=== PATIENT | male | born 1955 | race Caucasian/White ===

== ENCOUNTER → 2019-03-11 | Outpatient (CLI) | payer MEDICARE, OTHER ==
[~2019-03-11] MED LIST: CLON-378 PO; MECL-124 PO; ONDAN4ODT PO; SCOP1PAT TD
--- NOTE | 2019-03-11 11:59 | Diagnostic Imaging Report ---
INDICATION: Pain. Three views were obtained. FINDINGS: There are mild degenerative changes. There is no fracture or dislocation. Soft tissues are unremarkable. IMPRESSION: Mild degenerative narrowing in the medial knee joint compartment and patellofemoral joint. Dictated by: Dictated on workstation # [id number]
== END ==
LOC: RAD 11:17
PROVIDERS: ATTEND Family Medicine
DX: M17.11 Unilateral primary osteoarthritis, right knee (principal)
CPT/HCPCS: 73562

== ENCOUNTER 2019-09-14 07:42 | Emergency (ER) | payer MEDICARE, OTHER ==
[~2019-09-14] VITALS: Ht 172.2 cm; Wt 109.0 kg
[2019-09-14 07:46] VITALS: BP 141/88
[2019-09-14] MEDS ORDERED: KETOROLAC 30 MG/ML VIAL IVP STA (08:02)
[2019-09-14] MEDS ORDERED: COLCHICINE 0.6 MG (COLCRYS) TABLET PO ONE ×2 (08:15→09:00)
[2019-09-14 08:18] LABS: BASOPHILS % (AUTO) 0 % (0-10); EOSINOPHILS # (AUTO) 0.1 10^3/uL (0.0-0.3); EOSINOPHILS % (AUTO) 1 % (0-10); HEMATOCRIT 39 % (40-54); HEMOGLOBIN 12.8 G/DL (13.3-17.7); LYMPHOCYTES # (AUTO) 1.4 X 10^3 (1.0-4.0); LYMPHOCYTES % (AUTO) 12 % (12-44); MEAN CORPUSCULAR HEMOGLOBIN 27 PG (25-34); MEAN CORPUSCULAR HGB CONC 33 G/DL (32-36); MEAN CORPUSCULAR VOLUME 81 FL (80-99); MEAN PLATELET VOLUME 10.8 FL (7.4-10.4); MONOCYTES # (AUTO) 1.4 X 10^3 (0.0-1.0); MONOCYTES % (AUTO) 11 % (0-12); NEUTROPHILS # (AUTO) 9.4 X 10^3 (1.8-7.8); NEUTROPHILS % (AUTO) 76 % (42-75); PLATELET COUNT 324 10^3/uL (130-400); RED CELL DISTRIBUTION WIDTH 14.8 % (10.0-14.5); WHITE BLOOD COUNT 12.3 10^3/uL (4.3-11.0)
[2019-09-14 08:38] LABS: ALANINE AMINOTRANSFERASE 12 U/L (0-55); ALBUMIN 3.9 GM/DL (3.2-4.5); ALKALINE PHOSPHATASE 65 U/L (40-136); BILIRUBIN,TOTAL 0.8 MG/DL (0.1-1.0); BUN/CREATININE RATIO 11; CALCIUM 9.3 MG/DL (8.5-10.1); CARBON DIOXIDE 26 MMOL/L (21-32); CHLORIDE 99 MMOL/L (98-107); CREATININE SERUM 1.04 MG/DL (0.60-1.30); GFR ESTIMATED > 60; GLUCOSE 167 MG/DL (70-105); SODIUM 139 MMOL/L (135-145); TOTAL PROTEIN 7.5 GM/DL (6.4-8.2)
--- NOTE | 2019-09-14 09:34 | ED Lower Extremity ---
General Chief Complaint: Lower Extremity Stated Complaint: SWELLING IN FEET Nursing Triage Note: TO ED PER W/C C/O PAIN AND SWELLING IN BOTH FEET HAS PMH OF GOUT. SL SWELLING. Nursing Sepsis Screen: No Definite Risk Source: patient Exam Limitations: no limitations History of Present Illness Date Seen by Provider: Sep 14, 2019 Time Seen by Provider: 08:02 Initial Comments Here with report of bilateral feet pain that states is similar to when he has gout. Typically he would use colchicine but he is out of the prescription for that. Also noted some intermittent sore throat and runny nose with mild cough. This is usually worse in the morning. States that he's had some chills recently. Denies any other injuries or concerns. Recently started allopurinol and is wondering if that caused his gout flare. Onset: yesterday Severity: moderate Pain/Injury Location: bilateral foot, bilateral ankle Method of Injury: unknown Modifying Factors: Improves With Immobilization; Worse With Movement Allergies and Home Medications Allergies Coded Allergies: No Known Drug Allergies (Unverified , 08/28/13) Home Medications Clonidine Hcl 0.2 Mg Tab, 1 EACH PO BID FOR BLOOD PRESSURE Prescribed by: TIM DE LA CRUZ on 08/28/131914 Meclizine Hcl 25 Mg Tab, 1-2 TAB PO Q 4-6 HOURS PRN FOR DIZZINESS Prescribed by: TIM DE LA CRUZ on 08/28/131914 Ondansetron Hcl 4 Mg Tab, 4 MG PO Q4H FOR NAUSEA AND VOMITING Prescribed by: TIM DE LA CRUZ on 08/28/131914 Scopolamine Hcl 1 Patch .72 H Patch.td72, 1 EA TD Q3D FOR DIZZINESS Prescribed by: TIM DE LA CRUZ on 08/28/131914 Patient Home Medication List Home Medication List Reviewed: Yes Review of Systems Constitutional: see HPI EENTM: see HPI Respiratory: cough; No short of breath Cardiovascular: no symptoms reported Gastrointestinal: no symptoms reported Musculoskeletal: see HPI, joint pain, joint swelling Skin: change in color; No lesions Past Ylhfdaz-Satviw-Eiqngd Hx Past Med/Social Hx: Reviewed Nursing Past Med/Soc Hx Patient Social History Alcohol Use: Occasionally Uses Alcohol Beverage of Choice: [place] Recreational Drug Use: No Smoking Status: Never a Smoker Recent Foreign Travel: No Contact w/Someone Who Travel: No Recent Infectious Disease Expo: No Past Medical History Surgeries: No Respiratory: No Cardiac: Yes Neurological: No Reproductive Disorders: No Gastrointestinal: No Musculoskeletal: Yes Gout Endocrine: No Cancer: No Psychosocial: No Integumentary: No Blood Disorders: No Family Medical History Reviewed Nursing Family Hx No Pertinent Family Hx Physical Exam Vital Signs Vital Signs - First Documented 09/14/19 07:46 Temp 37.2 Pulse 113 Resp 18 B/P (MAP) 141/88 (105) Capillary Refill : Less Than 3 Seconds Height, Weight, BMI Height: '" Weight: 190lbs. oz. 86.069375ih; 36.00 BMI Method:Estimated General Appearance: WD/WN, no apparent distress Cardiovascular: regular rate, rhythm, no murmur Respiratory: lungs clear, normal breath sounds Gastrointestinal: non tender, soft Ankles: bilateral ankle pain, bilateral ankle soft tissue tenderness, bilateral ankle swelling Feet: bilateral foot pain, bilateral foot soft tissue tenderness, bilateral foot swelling, bilateral foot other (left greater than right with erythema and swelling. Mostly about the mid and upper foot and ankles.) Neurologic/Tendon: normal sensation, normal motor functions Neurologic/Psychiatric: alert, oriented x 3 Skin: warm/dry, other (erythema as described above) Progress/Results/Core Measures Results/Orders Lab Results Laboratory Tests Test 09/14/19 08:05 Range/Units White Blood Count 12.3 H 4.3-11.0 10^3/uL Red Blood Count 4.80 4.35-5.85 10^6/uL Hemoglobin 12.8 L 13.3-17.7 G/DL Hematocrit 39 L 40-54 % Mean Corpuscular Volume 81 80-99 FL Mean Corpuscular Hemoglobin 27 25-34 PG Mean Corpuscular Hemoglobin Concent 33 32-36 G/DL Red Cell Distribution Width 14.8 H 10.0-14.5 % Platelet Count 324 130-400 10^3/uL Mean Platelet Volume 10.8 H 7.4-10.4 FL Neutrophils (%) (Auto) 76 H 42-75 % Lymphocytes (%) (Auto) 12 12-44 % Monocytes (%) (Auto) 11 0-12 % Eosinophils (%) (Auto) 1 0-10 % Basophils (%) (Auto) 0 0-10 % Neutrophils # (Auto) 9.4 H 1.8-7.8 X 10^3 Lymphocytes # (Auto) 1.4 1.0-4.0 X 10^3 Monocytes # (Auto) 1.4 H 0.0-1.0 X 10^3 Eosinophils # (Auto) 0.1 0.0-0.3 10^3/uL Basophils # (Auto) 0.0 0.0-0.1 10^3/uL Sodium Level 139 135-145 MMOL/L Potassium Level 3.0 L 3.6-5.0 MMOL/L Chloride Level 99 98-107 MMOL/L Carbon Dioxide Level 26 21-32 MMOL/L Anion Gap 14 5-14 MMOL/L Blood Urea Nitrogen 11 7-18 MG/DL Creatinine 1.04 0.60-1.30 MG/DL Estimat Glomerular Filtration Rate > 60 BUN/Creatinine Ratio 11 Glucose Level 167 H 70-105 MG/DL Calcium Level 9.3 8.5-10.1 MG/DL Corrected Calcium 9.4 8.5-10.1 MG/DL Total Bilirubin 0.8 0.1-1.0 MG/DL Aspartate Amino Transf (AST/SGOT) 12 5-34 U/L Alanine Aminotransferase (ALT/SGPT) 12 0-55 U/L Alkaline Phosphatase 65 40-136 U/L C-Reactive Protein High Sensitivity 19.45 H 0.00-0.50 MG/DL Total Protein 7.5 6.4-8.2 GM/DL Albumin 3.9 3.2-4.5 GM/DL My Orders Orders - CHARLIE CANO MD Cbc With Automated Diff (09/14/19 08:02) Comprehensive Metabolic Panel (09/14/19 08:02) Hs C Reactive Protein (09/14/19 08:02) Ed Iv/Invasive Line Start (09/14/19 08:02) Ketorolac Injection (Toradol Injection) (09/14/19 08:02) Colchicine Tablet (Colcrys Tablet) (09/14/19 08:15) Colchicine Tablet (Colcrys Tablet) (09/14/19 09:00) Medications Given in ED Current Medications Medications Dose Ordered Sig/[place] Route Start Time Stop Time Status Last Admin Dose Admin Colchicine 0.6 mg ONCE ONCE PO 09/14/19 09:00 09/14/19 09:01 DC 09/14/19 09:23 0.6 MG Colchicine 1.2 mg ONCE ONCE PO 09/14/19 08:15 09/14/19 08:16 DC 09/14/19 08:22 1.2 MG Vital Signs/I&O 09/14/19 07:46 Temp 37.2 Pulse 113 Resp 18 B/P (MAP) 141/88 (105) Blood Pressure Mean: 105 Progress Progress Note : Progress Note Seen and evaluated. Physical exam consistent with gout flare. Colchicine 1.2 mg by mouth now with repeat of 0.6 mg by mouth and one hour. We'll also give Toradol 30 mg IV. We will check basic labs. There is some concerns that this could be infectious versus gout. Monitor patient. 914: Pain is actually much improved. Laboratory data does indicate inflammatory process which I do believe currently is related to gout but I did talk at length with the patient and family about management of this. We will see if he improves with gout treatment but if he has any worsening he will return for further workup including concerns related to a septic joint. Patient and family agree. Discharged home with return precautions. Patient verbalize understanding instructions and agreement with plan. Departure Impression Primary Impression: Gout of both feet Disposition: HOME, SELF-CARE Condition: Improved Departure-Patient Inst. Decision time for Depature: 09:34 Referrals: LEODAN HILL MD (PCP/Family) Primary Care Physician Patient Instructions: Gout (DC) Add. Discharge Instructions: All discharge instructions reviewed with patient and/or family. Voiced understanding. You may take Aleve one or 2 tablets twice daily as needed for pain. You may also take Tylenol/acetaminophen 1000 mg (2 tablets of extra strength version) every 6-8 hours as needed for pain. Do not exceed 4000 mg or 8 tablets in a 24-hour period. Drink plenty of fluids. Follow-up with your doctor on Monday or Monday for recheck. Return for worse pain, increased swelling, fever, red streaks up the foot or leg or other concerns as needed. Copy Copies To 1: LEODAN HILL MD, TIMOTHY D MD Sep 14, 2019 09:34
== END 2019-09-14 09:41 | disposition home or self-care (01) ==
LOC: EDUNIT# 07:42 → ER 07:43
DX: M10.071 Idiopathic gout, right ankle and foot (principal); M10.072 Idiopathic gout, left ankle and foot
CPT/HCPCS: 36415; 80053; 85025; 86141; 96374

== ENCOUNTER 2019-09-29 20:33 | Emergency (ER) | payer MEDICARE, OTHER ==
[~2019-09-29] VITALS: Ht 177 cm; Wt 113.0 kg
[2019-09-29] MEDS ORDERED: LIDOCAINE 1% INJ 20 ML 20 ML VIAL INJ ONE (20:45)
[2019-09-29] MEDS ORDERED: HYDROcodone/APAP 5 MG/325 MG (LORTAB) TAB PO ONE (21:15)
[2019-09-29] MEDS ORDERED: PRD20T PO (21:16)
--- NOTE | 2019-09-29 21:16 | ED Lower Extremity ---
General Chief Complaint: Lower Extremity Stated Complaint: ANKLE SWELLING Nursing Triage Note: THE PT IS AMBULATORY TO THE ROOM WITH PAIN NOTED WITH W/T BEAR. NO HX OF RECENT INJURY IS REPORTED. LOC IS NORMAL FOR THE PT. Nursing Sepsis Screen: No Definite Risk Source: patient Exam Limitations: no limitations History of Present Illness Date Seen by Provider: Sep 29, 2019 Time Seen by Provider: 21:11 Initial Comments To ER with reports of right ankle pain and swelling. Was seen here last week for gout, history of gout. He's been on colchicine, allopurinol, denies improvement Onset: just prior to arrival Severity: moderate Pain/Injury Location: right ankle Method of Injury: unknown Modifying Factors: Worse With Movement Allergies and Home Medications Allergies Coded Allergies: No Known Drug Allergies (Unverified , 08/28/13) Home Medications Clonidine Hcl 0.2 Mg Tab, 1 EACH PO BID FOR BLOOD PRESSURE Prescribed by: TIM DE LA CRUZ on 08/28/131914 Meclizine Hcl 25 Mg Tab, 1-2 TAB PO Q 4-6 HOURS PRN FOR DIZZINESS Prescribed by: TIM DE LA CRUZ on 08/28/131914 Ondansetron Hcl 4 Mg Tab, 4 MG PO Q4H FOR NAUSEA AND VOMITING Prescribed by: TIM DE LA CRUZ on 08/28/131914 Scopolamine Hcl 1 Patch .72 H Patch.td72, 1 EA TD Q3D FOR DIZZINESS Prescribed by: TIM DE LA CRUZ on 08/28/131914 Patient Home Medication List Home Medication List Reviewed: Yes Review of Systems Constitutional: see HPI; No chills, No fever EENTM: see HPI Respiratory: no symptoms reported Cardiovascular: no symptoms reported Genitourinary: no symptoms reported Musculoskeletal: no symptoms reported Skin: see HPI Past Cibtjbe-Jfensu-Ykcada Hx Patient Social History Alcohol Beverage of Choice: [place] Recent Foreign Travel: No Contact w/Someone Who Travel: No Recent Infectious Disease Expo: No Recent Hopitalizations: No Physical Abuse: No Sexual Abuse: No Mistreated: No Fear: No Seasonal Allergies Seasonal Allergies: No Past Medical History Surgeries: No Respiratory: No Cardiac: Yes Neurological: No Reproductive Disorders: No Gastrointestinal: No Musculoskeletal: Yes Gout Endocrine: No Cancer: No Psychosocial: No Integumentary: No Blood Disorders: No Family Medical History No Pertinent Family Hx Physical Exam Vital Signs Vital Signs - First Documented 09/29/19 20:44 Temp 36.6 Pulse 100 Resp 18 B/P (MAP) 123/94 (104) Capillary Refill : Less Than 3 Seconds Height, Weight, BMI Height: '" Weight: 190lbs. oz. 86.973694op; 36.00 BMI Method:Estimated General Appearance: WD/WN, no apparent distress Respiratory: no respiratory distress, no accessory muscle use Hips: bilateral hip non-tender, bilateral hip normal inspection, bilateral hip normal range of motion Legs: bilateral leg non-tender, bilateral leg normal inspection, bilateral leg normal range of motion Knees: bilateral knee non-tender, bilateral knee normal inspection, bilateral knee normal range of motion Ankles: bilateral ankle normal inspection, bilateral ankle normal range of motion; right ankle other (tender to palpation over the lateral malleolus. No erythema.) Feet: bilateral foot non-tender, bilateral foot normal inspection, bilateral foot normal range of motion, bilateral foot no evidence of injury Neurologic/Psychiatric: alert, normal mood/affect, oriented x 3 Skin: normal color, warm/dry Progress/Results/Core Measures Results/Orders My Orders Orders - GIORGIO AGUILAR APRN Body Fluid Cell Count (09/29/19 20:42) Body Fluid Culture (09/29/19 20:42) Crystals,Body Fluid (09/29/19 20:42) Lidocaine 1% Inj 20 Ml (Xylocaine 1% Inj (09/29/19 20:45) Hydrocodone/Apap 5/325 Tablet (Lortab 5 (09/29/19 21:15) Vital Signs/I&O 09/29/19 20:44 Temp 36.6 Pulse 100 Resp 18 B/P (MAP) 123/94 (104) Blood Pressure Mean: 104 POS Departure Communication (Admissions) Did a ankle arthrocentesis. The medial anterior aspect of the ankle was anesthetized with 1% lidocaine without epinephrine. It was cleansed with Betadin e and allowed to dry. A 22-gauge needle was then inserted until material could be aspirated, serosanguineous material aspirated totaling 2 mL. By the time I made to lab has had clotted. This means that cell count/differential unable to be done, Crystal analysis cannot be done, culture can be done. Impression Primary Impression: Arthropathy of right ankle Disposition: 01 HOME, SELF-CARE Condition: Stable Departure-Patient Inst. Decision time for Depature: :14 Referrals: LEODAN HILL MD (PCP/Family) Primary Care Physician Patient Instructions: NO INSTRUCTIONS GIVEN Add. Discharge Instructions: 1. Return to ER for any concerns 2. Follow-up with your doctor next week 3. All discharge instructions reviewed with patient and/or family. Voiced understanding. Scripts Prednisone (Prednisone) 20 Mg Tab 40 MG PO DAILY, #6 TAB 0 Refills Prov: GIORGIO AGUILAR APRN 09/29/19 GIORGIO AGUILAR APRN Sep 29, 2019 21:16 POS
[2019-09-29 21:27] VITALS: BP 123/94
[2019-09-29] MEDS ORDERED: KETOROLAC 60 MG/2 ML VIAL IM ONE (21:30)
[2019-09-29] MEDS ORDERED: predniSONE 20 MG TAB PO ONE (21:30)
== END 2019-09-29 21:27 | disposition home or self-care (01) ==
LOC: EDUNIT# 20:33 → ER 20:35
DX: M19.071 Primary osteoarthritis, right ankle and foot (principal); M10.9 Gout, unspecified
CPT/HCPCS: 87070; 87205; 96372; 99284

== ENCOUNTER 2019-10-13 17:57 | Emergency (ER) | payer MEDICARE, OTHER ==
[~2019-10-13] VITALS: Ht 175.3 cm; Wt 108.9 kg
[~2019-10-13 17:57] MED LIST changes: +PRD20T PO
--- NOTE | 2019-10-13 18:33 | Diagnostic Imaging Report ---
INDICATION: Chest pain. EXAMINATION: PA and lateral chest. FINDINGS: Heart size and pulmonary vascularity are normal. Lungs are clear. There are no effusions or pneumothoraces. IMPRESSION: Negative chest. Dictated by: Dictated on workstation # [id number]
--- NOTE | 2019-10-13 18:51 | ED General ---
General Chief Complaint: Cough/Cold/Flu Symptoms Stated Complaint: COUGH/CONGESTION Nursing Triage Note: PT AMBULATE TO TRIAGE WITH C/O COUGH/COLD/FLU TYPE SYMPTOMS X1WEEK. PT DENIES DIFFICULTY BREATHING, N/V/D. Nursing Sepsis Screen: No Definite Risk Source of Information: Patient Exam Limitations: No Limitations History of Present Illness Date Seen by Provider: Oct 13, 2019 Time Seen by Provider: 18:46 Initial Comments To ER with reports of sore throat, productive cough for one week. Seemed to get better at first and then recurred. No fevers. Nonsmoker. Timing/Duration: 1-2 Days Severity: Moderate Associated Systoms: Denies Symptoms Allergies and Home Medications Allergies Coded Allergies: No Known Drug Allergies (Unverified , 08/28/13) Home Medications Clonidine Hcl 0.2 Mg Tab, 1 EACH PO BID FOR BLOOD PRESSURE Prescribed by: TIM DE LA CRUZ on 08/28/131914 Meclizine Hcl 25 Mg Tab, 1-2 TAB PO Q 4-6 HOURS PRN FOR DIZZINESS Prescribed by: TIM DE LA CRUZ on 08/28/131914 Ondansetron Hcl 4 Mg Tab, 4 MG PO Q4H FOR NAUSEA AND VOMITING Prescribed by: TIM DE LA CRUZ on 08/28/131914 Prednisone 20 Mg Tab, 40 MG PO DAILY Prescribed by: GIORGIO AGUILAR on 09/29/192115 Scopolamine Hcl 1 Patch .72 H Patch.td72, 1 EA TD Q3D FOR DIZZINESS Prescribed by: TIM DE LA CRUZ on 08/28/131914 Patient Home Medication List Home Medication List Reviewed: Yes Review of Systems Review of Systems Constitutional: see HPI EENTM: see HPI Respiratory: no symptoms reported Cardiovascular: no symptoms reported Genitourinary: no symptoms reported Musculoskeletal: no symptoms reported Skin: no symptoms reported Psychiatric/Neurological: No Symptoms Reported Hematologic/Lymphatic: No Symptoms Reported Past Iqyzayy-Urnset-Vhgnmd Hx Patient Social History Alcohol Use: Denies Use Number of Drinks Today: BB Alcohol Beverage of Choice: [place] Recreational Drug Use: No Smoking Status: Never a Smoker 2nd Hand Smoke Exposure: No Recent Foreign Travel: No Contact w/Someone Who Travel: No Recent Infectious Disease Expo: No Recent Hopitalizations: No Physical Abuse: No Sexual Abuse: No Mistreated: No Fear: No Seasonal Allergies Seasonal Allergies: No Past Medical History Surgeries: No Respiratory: No Cardiac: Yes Hypertension Neurological: Yes (STROKE IN 2013) Stroke Reproductive Disorders: No Gastrointestinal: No Musculoskeletal: Yes Gout Endocrine: No HEENT: No Cancer: No Psychosocial: No Integumentary: No Blood Disorders: No Family Medical History No Pertinent Family Hx Physical Exam Vital Signs Vital Signs - First Documented Capillary Refill : Less Than 3 Seconds Height, Weight, BMI Height: '" Weight: 190lbs. oz. 86.562775ih; 35.00 BMI Method:Estimated General Appearance: No Apparent Distress, WD/WN Eyes: Bilateral Eye Normal Inspection, Bilateral Eye PERRL, Bilateral Eye EOMI HEENT: PERRL/EOMI, TMs Normal Neck: Full Range of Motion, Normal Inspection Respiratory: No Accessory Muscle Use, No Respiratory Distress Cardiovascular: Regular Rate, Rhythm, Normal Peripheral Pulses Gastrointestinal: Non Tender, Soft Extremity: Normal Capillary Refill, Normal Inspection Neurologic/Psychiatric: Alert, Oriented x3 Skin: Normal Color, Warm/Dry Progress/Results/Core Measures Suspected Sepsis Recent Fever Within 48 Hours: No Infection Criteria Present: None New/Unexplained Altered Menta: No Sepsis Screen: No Definite Risk SIRS Temperature: Pulse: 105 Respiratory Rate: 21 Blood Pressure 97 /69 Mean: 78 Results/Orders My Orders Orders - GIORGIO AGUILAR APRN Chest Pa/Lat (2 View) (10/13/19 18:18) Cbc With Automated Diff (10/13/19 18:18) Basic Metabolic Panel (10/13/19 18:18) Vital Signs/I&O 10/13/19 10/13/19 18:08 18:08 Temp 36.7 Pulse 105 Resp 21 B/P (MAP) 97/69 (78) O2 Delivery Room Air Room Air Capillary Refill : Less Than 3 Seconds Blood Pressure Mean: 78 POS Departure Impression Primary Impression: Bronchitis Disposition: 01 HOME, SELF-CARE Condition: Stable Departure-Patient Inst. Decision time for Depature: 18:50 Referrals: LEODAN HILL MD (PCP/Family) Primary Care Physician Patient Instructions: Acute Bronchitis, Adult (DC) Add. Discharge Instructions: 1. Return to ER for any concerns 2. Follow-up with your doctor next week 3. Medication as directed. All discharge instructions reviewed with patient and/or family. Voiced understanding. Scripts Doxycycline Hyclate (Doxycycline Hyclate) 100 Mg Tablet 100 MG PO BID, #14 TAB 0 Refills Prov: GIORGIO AGUILAR APRN 10/13/19 Prednisone (Prednisone) 20 Mg Tab 40 MG PO DAILY, #8 TAB 0 Refills Prov: GIORGIO AGUILAR APRN 10/13/19 GIORGIO AGUILAR APRN Oct 13, 2019 18:51 POS
[2019-10-13 18:52] LABS: BASOPHILS # (AUTO) 0.1 10^3/uL (0.0-0.1); BASOPHILS % (AUTO) 1 % (0-10); EOSINOPHILS # (AUTO) 0.5 10^3/uL (0.0-0.3); EOSINOPHILS % (AUTO) 5 % (0-10); HEMATOCRIT 41 % (40-54); HEMOGLOBIN 13.3 G/DL (13.3-17.7); LYMPHOCYTES # (AUTO) 2.1 X 10^3 (1.0-4.0); LYMPHOCYTES % (AUTO) 21 % (12-44); MEAN CORPUSCULAR HEMOGLOBIN 26 PG (25-34); MEAN CORPUSCULAR HGB CONC 33 G/DL (32-36); MEAN CORPUSCULAR VOLUME 81 FL (80-99); MEAN PLATELET VOLUME 10.6 FL (7.4-10.4); MONOCYTES # (AUTO) 0.7 X 10^3 (0.0-1.0); MONOCYTES % (AUTO) 7 % (0-12); NEUTROPHILS # (AUTO) 6.7 X 10^3 (1.8-7.8); NEUTROPHILS % (AUTO) 67 % (42-75); PLATELET COUNT 258 10^3/uL (130-400); RED CELL DISTRIBUTION WIDTH 15.7 % (10.0-14.5)
[2019-10-13] MEDS ORDERED: DOXY100T2 PO (18:52)
[2019-10-13] MEDS ORDERED: PRD20T PO (18:52)
[2019-10-13 19:08] LABS: BUN/CREATININE RATIO 10; CALCIUM 9.2 MG/DL (8.5-10.1); CARBON DIOXIDE 24 MMOL/L (21-32); CHLORIDE 106 MMOL/L (98-107); CREATININE SERUM 1.15 MG/DL (0.60-1.30); GFR ESTIMATED > 60; GLUCOSE 163 MG/DL (70-105); POTASSIUM 3.6 MMOL/L (3.6-5.0); SODIUM 143 MMOL/L (135-145)
[2019-10-13] MEDS ORDERED: CEFDINIR 300 MG (OMNICEF) CAP PO ONE (19:15)
[2019-10-13] MEDS ORDERED: RX-ACETAMINOPHEN/CODEINE TAB PPK #4 PO SCH (19:15)
[2019-10-13 19:22] VITALS: BP 140/77
== END 2019-10-13 19:22 | disposition home or self-care (01) ==
LOC: EDUNIT# 17:57 → ER 17:58
DX: J40 Bronchitis, not specified as acute or chronic (principal); I10 Essential (primary) hypertension; M10.9 Gout, unspecified; Z86.73 Personal history of transient ischemic attack (TIA), and cerebral infarction without residual deficits
CPT/HCPCS: 36415; 71046; 80048; 85025

== ENCOUNTER 2020-05-23 21:51 | Emergency (ER) | payer MEDICARE, OTHER ==
[~2020-05-23] VITALS: Ht 175.3 cm; Wt 113.4 kg
[~2020-05-23 21:51] MED LIST changes: +DOXY100T2 PO
--- OUTSIDE RECORDS SUMMARY | 2020-05-23 21:56 | XMS REPORT ---
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 Name Role Phone LASHAUN Krause Unavailable PROBLEMS Type Condition ICD9-CM Code HHX25-PH Code Onset Dates Condition S tatus SNOMED Code Problem Hyperlipidemia E78.5 Active 36452 004 Problem COPD (chronic obstructive pulmonary disease) J44.9 Active 61819436 Problem Hypertension I10 Active 0928432 3 Problem Shortness of breath R06.02 Active 955871617 Problem History of CVA (cerebrovascular accident) Z86.73 Active [id number] ALLERGIES No Information ENCOUNTERS Encounter Location Date Diagnosis [place] [address] [place] [id number] [place] [address] May, [facility] [address] [place] [address] May, Acute idiopathic gout, unspe cified site M10.00 and Dehydration E86.0 [facility] [address] [id number] [address] [place] [address] May, Swelling of right knee joint M25.461 and Right ankle swelling M25.471 [facility] [address] [id number] [address] [place] [address] Apr, Ankle swelling, right M25.47 1 [facility] [address] [place] [address] Apr, [facility] [address] [place], [place] [id number] [address] [place] [address] Feb, Establishing care with nikc guzman, encounter for Z71.89 ; COPD (chronic obstructive pulmonary disease) J44.9 ; History of CVA (cerebrovascular accident) Z86.73 ; Hypertension I10 and Hyperlipidemia E78.5 [place] [address] [facility] [id number] [address] [place] [address] Oct, Shortness of breath R06.02 [facility] [address] [facility] [id number] [address] [place] [address] Oct, Hyperlipidemia E78.5 [place] [address] [place] [id number] [place] [address] Oct, Shortness of breath R06.02 [place] [address] [place] [id number] [address] [place] [address] Oct, Other and unspecified hyperl ipidemia 272.4 [place] [address] [place] [id number] [place] [phone] Oct, Hypertension I10 ; Hyperlipi demia E78.5 and Shortness of breath R06.02 [place] [address] [place] [id number] [address] [place] [address] Jul, Other and unspecified hyperl ipidemia 272.4 [place] [address] [place] [id number] [place] [phone] Jul, Essential hypertension, carl gnant 401.0 and Other and unspecified hyperlipidemia 272.4 [place] [address] [place] [id number] [address] [place] [address] May, [place] [address] [place] [id number] [address] [place] [address] May, Essential hypertension, carl gnant 401.0 and Other and unspecified hyperlipidemia 272.4 [place] [address] [place] [id number] [address] [place] [address] Apr, [place] [address] [facility] [id number] [address] [place] [address] Apr, Other and unspecified hyperl ipidemia 272.4 ; Essential hypertension, malignant 401.0 and Shortness of breath 786.05 [facility] [address] [id number] [address] [place] [address], [place] [address] 03 Apr, 2015 [facility] [address] [id number] [address] [place] [address], [place] [address] 14 Feb, 2015 [facility] [address] [id number] [address] [place] [address], [place] [address] 13 Feb, 2015 [facility] [address] [id number] [address] [place] [address], [place] [address] 21 Jan, 2015 [facility] [address] [id number] [address] [place] [address], [place] [address] Jan, [facility] [address] [id number] [address] [place] [address], [place] [address] Jan, [facility] [address] [id number] [address] [place] [address], [place] [address] Jan, [facility] [address] [id number] [address] [place] [address], [place] [address] 18 Jan, 2015 [facility] [address] [id number] [address] [place] [address], [place] [address] Jan, [facility] [address] [id number] [address] [place] [address], [place] [address] Jan, [facility] [address] [id number] [address] [place] [address], [place] [address] Jan, [facility] [address] [id number] [address] [place] [address] 05 Jan, 2015 [facility] [address] [id number] [address] [place] [address], [place] [address] Jan, [facility] [address] [id number] [address] [place] [address], [place] [address] Dec, [facility] [address] [id number] [address] [place] [address] Dec, [facility] [address] [id number] [address] [place] [address] [place] [address] Sep, [facility] [address] [id number] [address] [place] [address], [place] [address] Sep, [facility] [address] [id number] [address] [place] [address], [place] [address] Sep, [facility] [address] [id number] [address] [place] [address], [place] [address] Sep, [facility] [address] [id number] [address] [place] [address], [place] [address] Sep, [facility] [address] [id number] [address] [place] [address], [place] [address] Sep, [facility] [address] [id number] [address] [place] [address], [place] [address] Aug, [facility] [address] [id number] [address] [place] [address], [place] [address] Aug, [facility] [address] [id number] [address] [place] [address], [place] [address] Aug, [facility] [address] [id number] [address] [place] [address], [place] [address] Aug, [facility] [address] [id number] [address] [place] [address], [place] [address] Jul, [facility] [address] [id number] [address] [place] [address], [place] [address] Jul, [facility] [address] [id number] [address] [place] [address], [place] [address] Jun, [facility] [address] [id number] [address] [place] [address], [place] [address] Jun, [facility] [address] [id number] [address] [place] [address], [place] [address] May, [facility] [address] [id number] [address] [place] [address], [place] [address] May, [facility] [address] [id number] [address] [place] [address] May, [facility] [address] [id number] [address] [place] [address], [place] [address] May, [facility] [address] [id number] [address] [place] [address], [place] [address] Apr, [facility] [address] [id number] [address] [place] [address], [place] [address] Apr, [facility] [address] [id number] [address] [place] [address], [place] [address] Apr, [facility] [address] [id number] [address] [place] [address], [place] [address] Apr, [facility] [address] [id number] [address] [place] [address], [place] [address] March, [facility] [address] [id number] [address] [place] [address], [place] [address] March, [facility] [address] [id number] [address] [place] [address], [place] [address] Feb, [facility] [address] [id number] [address] [place] [address], [place] [address] Feb, [facility] [address] [id number] [address] [place] [address], [place] [address] Feb, [facility] [address] [id number] [address] [place] [address], [place] [address] Feb, [facility] [address] [id number] [address] [place] [address], [place] [address] Feb, [facility] [address] [id number] [address] [place] [address], [place] [address] Feb, [facility] [address] [id number] [address] [place] [address], [place] [address] Feb, [facility] [address] [id number] [address] [place] [address], [place] [address] Feb, [facility] [address] [id number] [facility] [place] [address] Jan, [facility] [address] [id number] [facility] [place] [address] Jan, [facility] [address] [id number] [facility] [place] [address] Jan, [facility] [address] [id number] [address] [place] [address], [place] [address] Jan, [facility] [address] [id number] [facility] [place] [address] Jan, [facility] [address] [id number] [address] [place] [address], [place] [address] Jan, [facility] [address] [id number] [address] [place] [address], [place] [address] Jan, [facility] [address] [id number] [address] [place] [address], [place] [address] Jan, [facility] [address] [id number] [address] [place] [address], [place] [address] Jan, [facility] [address] [id number] [address] [place] [address], [place] [address] Jan, [facility] [address] [id number] [address] [place] [address], [place] [address] Jan, [facility] [address] [id number] [address] [place] [address], [place] [address] Jan, [facility] [address] [id number] [address] [place] [address], [place] [address] Jan, [facility] [address] [id number] [address] [place] [address], [place] [address] Jan, [facility] [address] [id number] [address] [place] [address], [place] [address] Dec, [facility] [address] [id number] [address] [place] [address] 13 Dec, 2013 [facility] [address] [id number] [address] [place] [address] Nov, [facility] [address] [id number] [address] [place] [address] Nov, [facility] [address] [id number] [address] [place] [address] Nov, [facility] [address] [id number] [address] [place] [address] Nov, [facility] [address] [id number] [address] [place] [address] Nov, [facility] [address] [id number] [address] [place] [address] Nov, [facility] [address] [id number] [address] [place] [address] Oct, [facility] [address] [id number] [address] [place] [address] Oct, [facility] [address] [id number] [address] [place] [address] Sep, [facility] [address] [id number] [address] [place] [address] 14 Sep, 2013 [facility] [address] [id number] [address] [place] [address] Sep, [facility] [address] [id number] [address] [place] [address] Sep, [facility] [address] [id number] [address] [place] [address] Aug, [facility] [address] [id number] [address] [place] [address] Aug, IMMUNIZATIONS No Known Immunizations SOCIAL HISTORY Never Assessed REASON FOR VISIT PLAN OF CARE VITAL SIGNS MEDICATIONS Unknown Medications RESULTS No Results PROCEDURES No Known procedures INSTRUCTIONS MEDICATIONS ADMINISTERED No Known Medications MEDICAL (GENERAL) HISTORY Type Description Date Medical History Stroke 08/2013 Medical History Hypertension Medical History Hyperlipidemia Medical History whooping cough as a child Medical History rheumatic fever as a child Medical History echocardiogram--10/2015--Dr. Daniel Ibarra--Normal repeat in 5 years Medical History Gout Hospitalization History Stroke Had poor equilibrium Was at [facility] 08/28/2013 Hospitalization History staph infection Hospitalization History Gout 06/05/16
--- OUTSIDE RECORDS SUMMARY | 2020-05-23 21:57 | XMS REPORT ---
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 Name Role Phone LASHAUN Krause Unavailable PROBLEMS Type Condition ICD9-CM Code KEL37-FL Code Onset Dates Condition S tatus SNOMED Code Problem Hyperlipidemia E78.5 Active 74756 004 Problem COPD (chronic obstructive pulmonary disease) J44.9 Active 10718497 Problem Hypertension I10 Active 4326605 3 Problem Shortness of breath R06.02 Active 203197351 Problem History of CVA (cerebrovascular accident) Z86.73 Active [id number] ALLERGIES No Information ENCOUNTERS Encounter Location Date Diagnosis [place] [address] [place] [id number] [address] [place] [phone] May, [facility] [address] [place] [phone] May, Acute idiopathic gout, unspe cified site M10.00 and Dehydration E86.0 [facility] [address] [place] [id number] [address] [place] [phone] May, Swelling of right knee joint M25.461 and Right ankle swelling M25.471 [facility] [address] [place] [id number] [address] [place] [phone] Apr, Ankle swelling, right M25.47 1 [facility] [address] [place] [phone] Apr, [place] [id number] [place] [phone] Feb, Establishing care with nick guzman, encounter for Z71.89 ; COPD (chronic obstructive pulmonary disease) J44.9 ; History of CVA (cerebrovascular accident) Z86.73 ; Hypertension I10 and Hyperlipidemia E78.5 [place] [address] [facility] [id number] [address] [place] [phone] Oct, Shortness of breath R06.02 [facility] [address] [facility] [id number] [address] [place] [phone] Oct, Hyperlipidemia E78.5 [place] [address] [place] [id number] [place] [phone] Oct, Shortness of breath R06.02 [place] [address] [place] [id number] [address] [place] [phone] Oct, Other and unspecified hyperl ipidemia 272.4 [place] [address] [place] [id number] [place] [phone] Oct, Hypertension I10 ; Hyperlipi demia E78.5 and Shortness of breath R06.02 [place] [address] [place] [id number] [address] [place] [phone] Jul, Other and unspecified hyperl ipidemia 272.4 [place] [address] [place] [id number] [place] [phone] Jul, Essential hypertension, carl gnant 401.0 and Other and unspecified hyperlipidemia 272.4 [place] [address] [place] [id number] [address] [place] [phone] May, [place] [address] [place] [id number] [address] [place] [phone] May, Essential hypertension, carl gnant 401.0 and Other and unspecified hyperlipidemia 272.4 [place] [address] [place] [id number] [address] [place] [phone] Apr, [place] [address] [facility] [id number] [address] [place] [phone] Apr, Other and unspecified hyperl ipidemia 272.4 ; Essential hypertension, malignant 401.0 and Shortness of breath 786.05 [facility] [address] [id number] [address] [place] [address], [place] [address] 03 Apr, 2015 [facility] [address] [id number] [address] [place] [address], [place] [address] 14 Feb, 2015 [facility] [address] [id number] [address] [place] [address], [place] [address] 13 Feb, 2015 [facility] [address] [id number] [address] [place] [address], [place] [phone] 21 Jan, 2015 [facility] [address] [id number] [address] [place] [address], [place] [address] Jan, [facility] [address] [id number] [address] [place] [address], [place] [address] Jan, [facility] [address] [id number] [address] [place] [address], [place] [address] Jan, [facility] [address] [id number] [address] [place] [address], [place] [id number] 18 Jan, 2015 [facility] [address] [id number] [address] [place] [address], [place] [address] Jan, [facility] [address] [id number] [address] [place] [address], [place] [address] Jan, [facility] [address] [id number] [address] [place] [address], [place] [address] Jan, [facility] [address] [id number] [address] [place] [phone] 05 Jan, 2015 [facility] [address] [id number] [address] [place] [address], [place] [address] Jan, [facility] [address] [id number] [address] [place] [address], [place] [address] Dec, [facility] [address] [id number] [address] [place] [phone] Dec, [facility] [address] [id number] [address] [place] [address] [place] [phone] Sep, [facility] [address] [id number] [address] [place] [address], [place] [address] Sep, [facility] [address] [id number] [address] [place] [address], [place] [address] Sep, [facility] [address] [id number] [address] [place] [address], [place] [address] Sep, [facility] [address] [id number] [address] [place] [address], [place] [address] Sep, [facility] [address] [id number] [address] [place] [address], [place] [address] Sep, [facility] [address] [id number] [address] [place] [address], [place] [address] Aug, [facility] [address] [id number] [address] [place] [address], [place] [address] Aug, [facility] [address] [id number] [address] [place] [address], [place] [address] Aug, [facility] [address] [id number] [address] [place] [address], [place] [address] Aug, [facility] [address] [id number] [address] [place] [address], [place] [address] Jul, [facility] [address] [id number] [address] [place] [address], [place] [address] Jul, [facility] [address] [id number] [address] [place] [address], [place] [address] Jun, [facility] [address] [id number] [address] [place] [address], [place] [address] Jun, [facility] [address] [id number] [address] [place] [address], [place] [address] May, [facility] [address] [id number] [address] [place] [address], [place] [address] May, [facility] [address] [id number] [facility] [place] [address] May, [facility] [address] [id number] [address] [place] [address], [place] [address] May, [facility] [address] [id number] [address] [place] [address], [place] [address] Apr, [facility] [address] [id number] [address] [place] [address], [place] [address] Apr, [facility] [address] [id number] [address] [place] [address], [place] [address] Apr, [facility] [address] [id number] [address] [place] [address], [place] [address] Apr, [facility] [address] [id number] [address] [place] [address], [place] [address] March, [facility] [address] [id number] [address] [place] [address], [place] [address] March, [facility] [address] [id number] [address] [place] [address], [place] [address] Feb, [facility] [address] [id number] [address] [place] [address], [place] [address] Feb, [facility] [address] [id number] [address] [place] [address], [place] [address] Feb, [facility] [address] [id number] [address] [place] [address], [place] [address] Feb, [facility] [address] [id number] [address] [place] [address], [place] [address] Feb, [facility] [address] [id number] [address] [place] [address], [place] [address] Feb, [facility] [address] [id number] [address] [place] [address], [place] [address] Feb, [facility] [address] [id number] [address] [place] [address], [place] [address] Feb, [facility] [address] [id number] [facility] [place] [address] Jan, [facility] [address] [id number] [facility] [place] [address] Jan, [facility] [address] [id number] [facility] [place] [address] Jan, [facility] [address] [id number] [address] [place] [address], [place] [address] Jan, [facility] [address] [id number] [facility] [place] [address] Jan, [facility] [address] [id number] [address] [place] [address], [place] [address] Jan, [facility] [address] [id number] [address] [place] [address], [place] [address] Jan, [facility] [address] [id number] [address] [place] [address], [place] [address] Jan, [facility] [address] [id number] [address] [place] [address], [place] [address] Jan, [facility] [address] [id number] [address] [place] [address], [place] [address] Jan, [facility] [address] [id number] [address] [place] [address], [place] [address] Jan, [facility] [address] [id number] [address] [place] [address], [place] [address] Jan, [facility] [address] [id number] [address] [place] [address], [place] [address] Jan, [facility] [address] [id number] [address] [place] [address], [place] [address] Jan, [facility] [address] [id number] [address] [place] [address], [place] [address] Dec, [facility] [address] [id number] [address] [place] [phone] 13 Dec, 2013 [facility] [address] [id number] [address] [place] [id number] Nov, [facility] [address] [id number] [address] [place] [phone] Nov, [facility] [address] [id number] [address] [place] [address] Nov, [facility] [address] [id number] [address] [place] [phone] Nov, [facility] [address] [id number] [address] [place] [address] Nov, [facility] [address] [id number] [address] [place] [phone] Nov, [facility] [address] [id number] [address] [place] [phone] Oct, [facility] [address] [id number] [address] [place] [id number] Oct, [facility] [address] [id number] [address] [place] [address] Sep, [facility] [address] [id number] [address] [place] [id number] 14 Sep, 2013 [facility] [address] [id number] [address] [place] [phone] Sep, [facility] [address] [id number] [address] [place] [phone] Sep, [facility] [address] [id number] [address] [place] [id number] Aug, [facility] [address] [id number] [address] [place] [address] Aug, IMMUNIZATIONS No Known Immunizations SOCIAL HISTORY [...] History Stroke Had poor equilibrium Was at [facility] 08/28/2013 Hospitalization History staph infection Hospitalization History Gout 06/05/16
--- OUTSIDE RECORDS SUMMARY | 2020-05-23 21:57 | XMS REPORT ---
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 Role Phone LASHAUN Krause Unavailable PROBLEMS Type Condition ICD9-CM Code GLT48-CD Code Onset Dates Condition S tatus SNOMED Code Problem Hyperlipidemia E78.5 Active 33864 004 Problem COPD (chronic obstructive pulmonary disease) J44.9 Active 83270542 Problem Hypertension I10 Active 9770039 3 Problem Shortness of breath R06.02 Active 819129591 Problem History of CVA (cerebrovascular accident) Z86.73 Active [id number] ALLERGIES No Information ENCOUNTERS Encounter Location Date Diagnosis [place] [id number] [address] [place] [address] May, [facility] [address] [place] [address] May, Acute idiopathic gout, unspe cified site M10.00 and Dehydration E86.0 [facility] [address] [id number] [address] [place] [address] May, Swelling of right knee joint M25.461 and Right ankle swelling M25.471 [facility] [address] [id number] [address] [place] [address] Apr, Ankle swelling, right M25.47 1 [facility] [address] [place] [address] Apr, [place] [id number] [place] [address] Feb, Establishing care with nick guzman, encounter for Z71.89 ; COPD (chronic obstructive pulmonary disease) J44.9 ; History of CVA (cerebrovascular accident) Z86.73 ; Hypertension I10 and Hyperlipidemia E78.5 [place] [address] [facility] [id number] [address] [place] [address] Oct, Shortness of breath R06.02 [facility] [address] [facility] [id number] [address] [place] [address] Oct, Hyperlipidemia E78.5 [place] [address] [place] [id number] [place] [address] Oct, Shortness of breath R06.02 [place] [address] [place] [id number] [address] [place] [address] Oct, Other and unspecified hyperl ipidemia 272.4 [place] [address] [place] [id number] [place] [address] Oct, Hypertension I10 ; Hyperlipi demia E78.5 and Shortness of breath R06.02 [place] [address] [place] [id number] [address] [place] [address] Jul, Other and unspecified hyperl ipidemia 272.4 [place] [address] [place] [id number] [place] [address] Jul, Essential hypertension, carl gnant 401.0 and Other and unspecified hyperlipidemia 272.4 [place] [address] [place] [id number] [address] [place] [address] May, [place] [address] [place] [id number] [address] [place] [address] May, Essential hypertension, carl gnant 401.0 and Other and unspecified hyperlipidemia 272.4 [place] [address] [place] [id number] [address] [place] [address] Apr, [place] [address] [facility] [id number] [address] [place] [address] Apr, Other and unspecified hyperl ipidemia 272.4 ; Essential hypertension, malignant 401.0 and Shortness of breath 786.05 [facility] [address] [id number] [address] [place] [address], [place] [address] 03 Apr, 2015 [facility] [address] [id number] [address] [place] [address], [place] [address] 14 Feb, 2015 [facility] [address] [id number] [address] [place] [address], [place] [address] 13 Feb, 2015 [facility] [address] [id number] [address] [place] [address], [place] [address] 21 Jan, 2015 [facility] [address] [id number] [address] [place] [address], [place] [address] Jan, [facility] [address] [id number] [address] [place] [address], [place] [address] Jan, [facility] [address] [id number] [address] [place] [address], [place] [address] Jan, [facility] [address] [id number] [address] [place] [address], [place] [address] 18 Jan, 2015 [facility] [address] [id number] [address] [place] [address], [place] [address] Jan, [facility] [address] [id number] [address] [place] [address], [place] [address] Jan, [facility] [address] [id number] [address] [place] [address], [place] [address] Jan, [facility] [address] [id number] [address] [place] [address] 05 Jan, 2015 [facility] [address] [id number] [address] [place] [address], [place] [address] Jan, [facility] [address] [id number] [address] [place] [address], [place] [address] Dec, [facility] [address] [id number] [address] [place] [address] Dec, [facility] [address] [id number] [address] [place] [address] [place] [address] Sep, [facility] [address] [id number] [address] [place] [address], [place] [address] Sep, [facility] [address] [id number] [address] [place] [address], [place] [address] Sep, [facility] [address] [id number] [address] [place] [address], [place] [address] Sep, [facility] [address] [id number] [address] [place] [address], [place] [address] Sep, [facility] [address] [id number] [address] [place] [address], [place] [address] Sep, [facility] [address] [id number] [address] [place] [address], [place] [address] Aug, [facility] [address] [id number] [address] [place] [address], [place] [address] Aug, [facility] [address] [id number] [address] [place] [address], [place] [address] Aug, [facility] [address] [id number] [address] [place] [address], [place] [address] Aug, [facility] [address] [id number] [address] [place] [address], [place] [address] Jul, [facility] [address] [id number] [address] [place] [address], [place] [address] Jul, [facility] [address] [id number] [address] [place] [address], [place] [address] Jun, [facility] [address] [id number] [address] [place] [address], [place] [address] Jun, [facility] [address] [id number] [address] [place] [address], [place] [address] May, [facility] [address] [id number] [address] [place] [address], [place] [address] May, [facility] [address] [id number] [facility] [place] [address] May, [facility] [address] [id number] [address] [place] [address], [place] [address] May, [facility] [address] [id number] [address] [place] [address], [place] [address] Apr, [facility] [address] [id number] [address] [place] [address], [place] [address] Apr, [facility] [address] [id number] [address] [place] [address], [place] [address] Apr, [facility] [address] [id number] [address] [place] [address], [place] [address] Apr, [facility] [address] [id number] [address] [place] [address], [place] [address] March, [facility] [address] [id number] [address] [place] [address], [place] [address] March, [facility] [address] [id number] [address] [place] [address], [place] [address] Feb, [facility] [address] [id number] [address] [place] [address], [place] [address] Feb, [facility] [address] [id number] [address] [place] [address], [place] [address] Feb, [facility] [address] [id number] [address] [place] [address], [place] [address] Feb, [facility] [address] [id number] [address] [place] [address], [place] [address] Feb, [facility] [address] [id number] [address] [place] [address], [place] [address] Feb, [facility] [address] [id number] [address] [place] [address], [place] [address] Feb, [facility] [address] [id number] [address] [place] [address], [place] [address] Feb, [facility] [address] [id number] [facility] [place] [address] Jan, [facility] [address] [id number] [facility] [place] [address] Jan, [facility] [address] [id number] [facility] [place] [address] Jan, [facility] [address] [id number] [address] [place] [address], [place] [address] Jan, [facility] [address] [id number] [facility] [place] [address] Jan, [facility] [address] [id number] [address] [place] [address], [place] [address] Jan, [facility] [address] [id number] [address] [place] [address], [place] [address] Jan, [facility] [address] [id number] [address] [place] [address], [place] [address] Jan, [facility] [address] [id number] [address] [place] [address], [place] [address] Jan, [facility] [address] [id number] [address] [place] [address], [place] [address] Jan, [facility] [address] [id number] [address] [place] [address], [place] [address] Jan, [facility] [address] [id number] [address] [place] [address], [place] [address] Jan, [facility] [address] [id number] [address] [place] [address], [place] [address] Jan, [facility] [address] [id number] [address] [place] [address], [place] [address] Jan, [facility] [address] [id number] [address] [place] [address], [place] [address] Dec, [facility] [address] [id number] [address] [place] [address] 13 Dec, 2013 [facility] [address] [id number] [address] [place] [address] Nov, [facility] [address] [id number] [address] [place] [address] Nov, [facility] [address] [id number] [address] [place] [address] Nov, [facility] [address] [id number] [address] [place] [address] Nov, [facility] [address] [id number] [address] [place] [address] Nov, [facility] [address] [id number] [address] [place] [address] Nov, [facility] [address] [id number] [address] [place] [address] Oct, [facility] [address] [id number] [address] [place] [address] Oct, [facility] [address] [id number] [address] [place] [address] Sep, [facility] [address] [id number] [address] [place] [address] 14 Sep, 2013 [facility] [address] [id number] [address] [place] [address] Sep, [facility] [address] [id number] [address] [place] [address] Sep, [facility] [address] [id number] [address] [place] [address] Aug, [facility] [address] [id number] [address] [place] [address] Aug, IMMUNIZATIONS No Known Immunizations SOCIAL HISTORY [...] History Stroke Had poor equilibrium Was at [facility] 08/28/2013 Hospitalization History staph infection Hospitalization History Gout 06/05/16
--- OUTSIDE RECORDS SUMMARY | 2020-05-23 21:57 | XMS REPORT ---
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 Name Role Phone LASHAUN Krause Unavailable PROBLEMS Type Condition ICD9-CM Code XYJ82-LN Code Onset Dates Condition S tatus SNOMED Code Problem Hyperlipidemia E78.5 Active 21927 004 Problem COPD (chronic obstructive pulmonary disease) J44.9 Active 34091366 Problem Hypertension I10 Active 4949088 3 Problem Shortness of breath R06.02 Active 854629791 Problem History of CVA (cerebrovascular accident) Z86.73 Active [id number] ALLERGIES No Information ENCOUNTERS Encounter Location Date Diagnosis [place] [address] [place] [id number] [place] [address] May, [facility] [address] [place] [address] May, Acute idiopathic gout, unspe cified site M10.00 and Dehydration E86.0 [facility] [address] [place] [id number] [address] [place] [address] May, Swelling of right knee joint M25.461 and Right ankle swelling M25.471 [facility] [address] [place] [id number] [address] [place] [address] Apr, Ankle swelling, right M25.47 1 [facility] [address] [place] [phone] Apr, [place] [id number] [place] [address] Feb, Establishing care with nick guzman, encounter for Z71.89 ; COPD (chronic obstructive pulmonary disease) J44.9 ; History of CVA (cerebrovascular accident) Z86.73 ; Hypertension I10 and Hyperlipidemia E78.5 [place] [address] [facility] [id number] [address] [place] [address] Oct, Shortness of breath R06.02 [facility] [address] [facility] [id number] [address] [place] [address] Oct, Hyperlipidemia E78.5 [place] [address] [place] [id number] [place] [address] Oct, Shortness of breath R06.02 [place] [address] [place] [id number] [address] [place] [id number] Oct, Other and unspecified hyperl ipidemia 272.4 [place] [address] [place] [id number] [place] [address] Oct, Hypertension I10 ; Hyperlipi demia E78.5 and Shortness of breath R06.02 [place] [address] [place] [id number] [address] [place] [id number] Jul, Other and unspecified hyperl ipidemia 272.4 [place] [address] [place] [id number] [place] [phone] Jul, Essential hypertension, carl gnant 401.0 and Other and unspecified hyperlipidemia 272.4 [place] [address] [place] [id number] [address] [place] [address] May, [place] [address] [place] [id number] [address] [place] [address] May, Essential hypertension, carl gnant 401.0 and Other and unspecified hyperlipidemia 272.4 [place] [address] [place] [id number] [address] [place] [address] Apr, [place] [address] [facility] [id number] [address] [place] [id number] Apr, Other and unspecified hyperl ipidemia 272.4 ; Essential hypertension, malignant 401.0 and Shortness of breath 786.05 [facility] [address] [id number] [address] [place] [address], [place] [address] 03 Apr, 2015 [facility] [address] [id number] [address] [place] [address], [place] [address] 14 Feb, 2015 [facility] [address] [id number] [address] [place] [address], [place] [address] 13 Feb, 2015 [facility] [address] [id number] [address] [place] [address], [place] [address] 21 Jan, 2015 [facility] [address] [id number] [address] [place] [address], [place] [address] Jan, [facility] [address] [id number] [address] [place] [address], [place] [address] Jan, [facility] [address] [id number] [address] [place] [address], [place] [address] Jan, [facility] [address] [id number] [address] [place] [address], [place] [address] 18 Jan, 2015 [facility] [address] [id number] [address] [place] [address], [place] [address] Jan, [facility] [address] [id number] [address] [place] [address], [place] [address] Jan, [facility] [address] [id number] [address] [place] [address], [place] [address] Jan, [facility] [address] [id number] [address] [place] [id number] 05 Jan, 2015 [facility] [address] [id number] [address] [place] [address], [place] [address] Jan, [facility] [address] [id number] [address] [place] [address], [place] [address] Dec, [facility] [address] [id number] [address] [place] [phone] Dec, [facility] [address] [id number] [address] [place] [address] [place] [address] Sep, [facility] [address] [id number] [address] [place] [address], [place] [address] Sep, [facility] [address] [id number] [address] [place] [address], [place] [address] Sep, [facility] [address] [id number] [address] [place] [address], [place] [address] Sep, [facility] [address] [id number] [address] [place] [address], [place] [address] Sep, [facility] [address] [id number] [address] [place] [address], [place] [address] Sep, [facility] [address] [id number] [address] [place] [address], [place] [address] Aug, [facility] [address] [id number] [address] [place] [address], [place] [address] Aug, [facility] [address] [id number] [address] [place] [address], [place] [address] Aug, [facility] [address] [id number] [address] [place] [address], [place] [address] Aug, [facility] [address] [id number] [address] [place] [address], [place] [address] Jul, [facility] [address] [id number] [address] [place] [address], [place] [address] Jul, [facility] [address] [id number] [address] [place] [address], [place] [address] Jun, [facility] [address] [id number] [address] [place] [address], [place] [address] Jun, [facility] [address] [id number] [address] [place] [address], [place] [address] May, [facility] [address] [id number] [address] [place] [address], [place] [address] May, [facility] [address] [id number] [facility] [place] [address] May, [facility] [address] [id number] [address] [place] [address], [place] [address] May, [facility] [address] [id number] [address] [place] [address], [place] [address] Apr, [facility] [address] [id number] [address] [place] [address], [place] [address] Apr, [facility] [address] [id number] [address] [place] [address], [place] [address] Apr, [facility] [address] [id number] [address] [place] [address], [place] [address] Apr, [facility] [address] [id number] [address] [place] [address], [place] [address] March, [facility] [address] [id number] [address] [place] [address], [place] [address] March, [facility] [address] [id number] [address] [place] [address], [place] [address] Feb, [facility] [address] [id number] [address] [place] [address], [place] [address] Feb, [facility] [address] [id number] [address] [place] [address], [place] [address] Feb, [facility] [address] [id number] [address] [place] [address], [place] [address] Feb, [facility] [address] [id number] [address] [place] [address], [place] [address] Feb, [facility] [address] [id number] [address] [place] [address], [place] [address] Feb, [facility] [address] [id number] [address] [place] [address], [place] [address] Feb, [facility] [address] [id number] [address] [place] [address], [place] [address] Feb, [facility] [address] [id number] [facility] [place] [address] Jan, [facility] [address] [id number] [facility] [place] [address] Jan, [facility] [address] [id number] [facility] [place] [address] Jan, [facility] [address] [id number] [address] [place] [address], [place] [address] Jan, [facility] [address] [id number] [facility] [place] [address] Jan, [facility] [address] [id number] [address] [place] [address], [place] [address] Jan, [facility] [address] [id number] [address] [place] [address], [place] [address] Jan, [facility] [address] [id number] [address] [place] [address], [place] [address] Jan, [facility] [address] [id number] [address] [place] [address], [place] [address] Jan, [facility] [address] [id number] [address] [place] [address], [place] [address] Jan, [facility] [address] [id number] [address] [place] [address], [place] [address] Jan, [facility] [address] [id number] [address] [place] [address], [place] [address] Jan, [facility] [address] [id number] [address] [place] [address], [place] [address] Jan, [facility] [address] [id number] [address] [place] [address], [place] [address] Jan, [facility] [address] [id number] [address] [place] [address], [place] [address] Dec, [facility] [address] [id number] [address] [place] [id number] 13 Dec, 2013 [facility] [address] [id number] [address] [place] [address] Nov, [facility] [address] [id number] [address] [place] [address] Nov, [facility] [address] [id number] [address] [place] [address] Nov, [facility] [address] [id number] [address] [place] [address] Nov, [facility] [address] [id number] [address] [place] [address] Nov, [facility] [address] [id number] [address] [place] [address] Nov, [facility] [address] [id number] [address] [place] [id number] Oct, [facility] [address] [id number] [address] [place] [address] Oct, [facility] [address] [id number] [address] [place] [address] Sep, [facility] [address] [id number] [address] [place] [address] 14 Sep, 2013 [facility] [address] [id number] [address] [place] [address] Sep, [facility] [address] [id number] [address] [place] [address] Sep, [facility] [address] [id number] [address] [place] [address] Aug, [facility] [address] [id number] [address] [place] [id number] Aug, IMMUNIZATIONS No Known Immunizations SOCIAL HISTORY [...] History Stroke Had poor equilibrium Was at [facility] 08/28/2013 Hospitalization History staph infection Hospitalization History Gout 06/05/16
--- OUTSIDE RECORDS SUMMARY | 2020-05-23 21:57 | XMS REPORT ---
Author Author Maurice Krause Organization [facility] Address [address] [place] [address] Care Team Providers Care Information Technology Manager Name Role Phone LASHAUN Krause Unavailable PROBLEMS Type Condition ICD9-CM Code MEL59-UB Code Onset Dates Condition S tatus SNOMED Code Problem Hyperlipidemia E78.5 Active 46513 004 Problem COPD (chronic obstructive pulmonary disease) J44.9 Active 49022586 Problem Hypertension I10 Active 9067341 3 Problem Shortness of breath R06.02 Active 526610670 Problem History of CVA (cerebrovascular accident) Z86.73 Active [id number] ALLERGIES No Information ENCOUNTERS Encounter Location Date Diagnosis [place] [address] [place] [id number] [place] [id number] May, [facility] [address] [place] [id number] May, Acute idiopathic gout, unspe cified site M10.00 and Dehydration E86.0 [facility] [address] [place] [id number] [place] [address] May, Swelling of right knee joint M25.461 and Right ankle swelling M25.471 [facility] [address] [id number] [place] [address] Apr, Ankle swelling, right M25.47 1 [facility] [address] [place] [id number] Apr, [place] [id number] [place] [address] Feb, Establishing care with nick guzman, encounter for Z71.89 ; COPD (chronic obstructive pulmonary disease) J44.9 ; History of CVA (cerebrovascular accident) Z86.73 ; Hypertension I10 and Hyperlipidemia E78.5 [place] [address] [facility] [id number] [address] [place] [address] Oct, Shortness of breath R06.02 [facility] [address] [facility] [id number] [address] [place] [address] Oct, Hyperlipidemia E78.5 [place] [address] [place] [id number] [place] [phone] Oct, Shortness of breath R06.02 [place] [address] [place] [id number] [address] [place] [id number] Oct, Other and unspecified hyperl ipidemia 272.4 [place] [address] [place] [id number] [place] [id number] Oct, Hypertension I10 ; Hyperlipi demia E78.5 and Shortness of breath R06.02 [place] [address] [place] [id number] [address] [place] [id number] Jul, Other and unspecified hyperl ipidemia 272.4 [place] [address] [place] [id number] [place] [phone] Jul, Essential hypertension, carl gnant 401.0 and Other and unspecified hyperlipidemia 272.4 [place] [address] [place] [id number] [address] [place] [id number] May, [place] [address] [place] [id number] [address] [place] [address] May, Essential hypertension, carl gnant 401.0 and Other and unspecified hyperlipidemia 272.4 [place] [address] [place] [id number] [address] [place] [id number] Apr, [place] [address] [facility] [id number] [address] [place] [phone] Apr, Other and unspecified hyperl ipidemia 272.4 ; Essential hypertension, malignant 401.0 and Shortness of breath 786.05 [facility] [address] [id number] [address] [place] [address], [place] [address] 03 Apr, 2015 [facility] [address] [id number] [address] [place] [address], [place] [id number] 14 Feb, 2015 [facility] [address] [id number] [address] [place] [address], [place] [id number] 13 Feb, 2015 [facility] [address] [id number] [address] [place] [address], [place] [id number] 21 Jan, 2015 [facility] [address] [id number] [address] [place] [address], [place] [address] Jan, [facility] [address] [id number] [address] [place] [address], [place] [id number] Jan, [facility] [address] [id number] [address] [place] [address], [place] [id number] Jan, [facility] [address] [id number] [address] [place] [address], [place] [id number] 18 Jan, 2015 [facility] [address] [id number] [address] [place] [address], [place] [address] Jan, [facility] [address] [id number] [address] [place] [address], [place] [address] Jan, [facility] [address] [id number] [address] [place] [address], [place] [address] Jan, [facility] [address] [id number] [address] [place] [id number] 05 Jan, 2015 [facility] [address] [id number] [address] [place] [address], [place] [address] Jan, [facility] [address] [id number] [address] [place] [address], [place] [address] Dec, [facility] [address] [id number] [address] [place] [id number] Dec, [facility] [address] [id number] [address] [place] [address] [place] [address] Sep, [facility] [address] [id number] [address] [place] [address], [place] [address] Sep, [facility] [address] [id number] [address] [place] [address], [place] [address] Sep, [facility] [address] [id number] [address] [place] [address], [place] [address] Sep, [facility] [address] [id number] [address] [place] [address], [place] [address] Sep, [facility] [address] [id number] [address] [place] [address], [place] [address] Sep, [facility] [address] [id number] [address] [place] [address], [place] [address] Aug, [facility] [address] [id number] [address] [place] [address], [place] [address] Aug, [facility] [address] [id number] [address] [place] [address], [place] [address] Aug, [facility] [address] [id number] [address] [place] [address], [place] [address] Aug, [facility] [address] [id number] [address] [place] [address], [place] [address] Jul, [facility] [address] [id number] [address] [place] [address], [place] [address] Jul, [facility] [address] [id number] [address] [place] [address], [place] [address] Jun, [facility] [address] [id number] [address] [place] [address], [place] [address] Jun, [facility] [address] [id number] [address] [place] [address], [place] [address] May, [facility] [address] [id number] [address] [place] [address], [place] [address] May, [facility] [address] [id number] [facility] [place] [address] May, [facility] [address] [id number] [address] [place] [address], [place] [address] May, [facility] [address] [id number] [address] [place] [address], [place] [address] Apr, [facility] [address] [id number] [address] [place] [address], [place] [address] Apr, [facility] [address] [id number] [address] [place] [address], [place] [address] Apr, [facility] [address] [id number] [address] [place] [address], [place] [address] Apr, [facility] [address] [id number] [address] [place] [address], [place] [address] March, [facility] [address] [id number] [address] [place] [address], [place] [address] March, [facility] [address] [id number] [address] [place] [address], [place] [address] Feb, [facility] [address] [id number] [address] [place] [address], [place] [address] Feb, [facility] [address] [id number] [address] [place] [address], [place] [address] Feb, [facility] [address] [id number] [address] [place] [address], [place] [address] Feb, [facility] [address] [id number] [address] [place] [address], [place] [address] Feb, [facility] [address] [id number] [address] [place] [address], [place] [address] Feb, [facility] [address] [id number] [address] [place] [address], [place] [address] Feb, [facility] [address] [id number] [address] [place] [address], [place] [address] Feb, [facility] [address] [id number] [facility] [place] [address] Jan, [facility] [address] [id number] [facility] [place] [address] Jan, [facility] [address] [id number] [facility] [place] [address] Jan, [facility] [address] [id number] [address] [place] [address], [place] [address] Jan, [facility] [address] [id number] [facility] [place] [address] Jan, [facility] [address] [id number] [address] [place] [address], [place] [address] Jan, [facility] [address] [id number] [address] [place] [address], [place] [address] Jan, [facility] [address] [id number] [address] [place] [address], [place] [address] Jan, [facility] [address] [id number] [address] [place] [address], [place] [address] Jan, [facility] [address] [id number] [address] [place] [address], [place] [address] Jan, [facility] [address] [id number] [address] [place] [address], [place] [address] Jan, [facility] [address] [id number] [address] [place] [address], [place] [address] Jan, [facility] [address] [id number] [address] [place] [address], [place] [address] Jan, [facility] [address] [id number] [address] [place] [address], [place] [address] Jan, [facility] [address] [id number] [address] [place] [address], [place] [address] Dec, [facility] [address] [id number] [address] [place] [address] 13 Dec, 2013 [facility] [address] [id number] [address] [place] [address] Nov, [facility] [address] [id number] [address] [place] [address] Nov, [facility] [address] [id number] [address] [place] [id number] Nov, [facility] [address] [id number] [address] [place] [id number] Nov, [facility] [address] [id number] [address] [place] [address] Nov, [facility] [address] [id number] [address] [place] [address] Nov, [facility] [address] [id number] [address] [place] [id number] Oct, [facility] [address] [id number] [address] [place] [address] 18 Oct, 2013 [facility] [address] [id number] [address] [place] [address] 14 Sep, 2013 [facility] [address] [id number] [address] [place] [address] 14 Sep, 2013 [facility] [address] [id number] [address] [place] [id number] Sep, [facility] [address] [id number] [address] [place] [address] Sep, [facility] [address] [id number] [address] [place] [id number] Aug, [facility] [address] [id number] [address] [place] [address] Aug, IMMUNIZATIONS No Known Immunizations SOCIAL HISTORY Never Assessed REASON FOR VISIT PLAN OF CARE VITAL SIGNS Height 69 in 2013-09-19 Weight 197 lbs 2013-09-19 Temperature 98 degrees Fahrenheit 2013-09-19 Heart Rate 80 bpm 2013-09-19 Respiratory Rate 14 2013-09-19 Blood pressure systolic 132 mmHg 2013-09-19 Blood pressure diastolic 80 mmHg 2013-09-19 MEDICATIONS Unknown Medications RESULTS No Results PROCEDURES [...] History Stroke Had poor equilibrium Was at [facility] 08/28/2013 Hospitalization History staph infection Hospitalization History Gout 06/05/16
--- OUTSIDE RECORDS SUMMARY | 2020-05-23 21:57 | XMS REPORT ---
Author Author Maurice Krause Organization [facility] Address [address] [place] [address] Care Team Providers Care Car Record Clerk Name Role Phone LASHAUN Krause Unavailable PROBLEMS Type Condition ICD9-CM Code IDR53-LZ Code Onset Dates Condition S tatus SNOMED Code Problem Hyperlipidemia E78.5 Active 89603 004 Problem COPD (chronic obstructive pulmonary disease) J44.9 Active 97886853 Problem Hypertension I10 Active 8405017 3 Problem Shortness of breath R06.02 Active 513714288 Problem History of CVA (cerebrovascular accident) Z86.73 Active [id number] ALLERGIES No Information ENCOUNTERS Encounter Location Date Diagnosis [place] [address] [place] [id number] [address] [place] [phone] May, [facility] [address] [place] [phone] May, Acute idiopathic gout, unspe cified site M10.00 and Dehydration E86.0 [facility] [address] [place] [id number] [address] [place] [phone] May, Swelling of right knee joint M25.461 and Right ankle swelling M25.471 [facility] [address] [place] [id number] [address] [place] [phone] Apr, Ankle swelling, right M25.47 1 [facility] [address] [place] [phone] Apr, [place] [id number] [place] [phone] Feb, Establishing care with nick guzman, encounter for Z71.89 ; COPD (chronic obstructive pulmonary disease) J44.9 ; History of CVA (cerebrovascular accident) Z86.73 ; Hypertension I10 and Hyperlipidemia E78.5 [place] [address] [address] [facility] [id number] [address] [place] [phone] Oct, Shortness of breath R06.02 [facility] [address] [facility] [id number] [address] [place] [phone] Oct, Hyperlipidemia E78.5 [place] [address] [place] [id number] [place] [phone] Oct, Shortness of breath R06.02 [place] [address] [place] [id number] [address] [place] [phone] Oct, Other and unspecified hyperl ipidemia 272.4 [place] [address] [place] [id number] [place] [phone] Oct, Hypertension I10 ; Hyperlipi demia E78.5 and Shortness of breath R06.02 [place] [address] [place] [id number] [address] [place] [phone] Jul, Other and unspecified hyperl ipidemia 272.4 [place] [address] [place] [id number] [place] [phone] Jul, Essential hypertension, carl gnant 401.0 and Other and unspecified hyperlipidemia 272.4 [place] [address] [place] [id number] [address] [place] [phone] May, [place] [address] [place] [id number] [address] [place] [phone] May, Essential hypertension, carl gnant 401.0 and Other and unspecified hyperlipidemia 272.4 [place] [address] [place] [id number] [address] [place] [phone] Apr, [place] [address] [facility] [id number] [address] [place] [phone] Apr, Other and unspecified hyperl ipidemia 272.4 ; Essential hypertension, malignant 401.0 and Shortness of breath 786.05 [facility] [address] [id number] [address] [place] [address], [place] [address] 03 Apr, 2015 [facility] [address] [id number] [address] [place] [address], [place] [id number] 14 Feb, 2015 [facility] [address] [id number] [address] [place] [address], [place] [id number] 13 Feb, 2015 [facility] [address] [id number] [address] [place] [address], [place] [id number] 21 Jan, 2015 [facility] [address] [id number] [address] [place] [address], [place] [address] Jan, [facility] [address] [id number] [address] [place] [address], [place] [phone] Jan, [facility] [address] [id number] [address] [place] [address], [place] [address] Jan, [facility] [address] [id number] [address] [place] [address], [place] [id number] 18 Jan, 2015 [facility] [address] [id number] [address] [place] [address], [place] [address] Jan, [facility] [address] [id number] [address] [place] [address], [place] [address] Jan, [facility] [address] [id number] [address] [place] [address], [place] [phone] Jan, [facility] [address] [id number] [address] [place] [phone] 05 Jan, 2015 [facility] [place] [facility] [address] [id number] [address] [place] [address], [place] [address] Jan, [facility] [place] [facility] [address] [id number] [address] [place] [address], [place] [address] Dec, [facility] [place] [facility] [address] [id number] [address] [place] [phone] Dec, [facility] [address] [id number] [address] [place] [address] [place] [id number] Sep, [facility] [place] [facility] [address] [id number] [address] [place] [address], [place] [address] Sep, [facility] [place] [facility] [address] [id number] [address] [place] [address], [place] [address] Sep, [facility] [place] [facility] [address] [id number] [address] [place] [address], [place] [address] Sep, [facility] [place] [facility] [address] [id number] [address] [place] [address], [place] [address] Sep, [facility] [place] [facility] [address] [id number] [address] [place] [address], [place] [address] Sep, [facility] [place] [facility] [address] [id number] [address] [place] [address], [place] [address] Aug, [facility] [place] [facility] [address] [id number] [address] [place] [address], [place] [address] Aug, [facility] [place] [facility] [address] [id number] [address] [place] [address], [place] [address] Aug, [facility] [place] [facility] [address] [id number] [address] [place] [address], [place] [address] Aug, [facility] [place] [facility] [address] [id number] [address] [place] [address], [place] [address] Jul, [facility] [place] [facility] [address] [id number] [address] [place] [address], [place] [address] Jul, [facility] [place] [facility] [address] [id number] [address] [place] [address], [place] [address] Jun, [facility] [place] [facility] [address] [id number] [address] [place] [address], [place] [address] Jun, [facility] [place] [facility] [address] [id number] [address] [place] [address], [place] [address] May, [facility] [place] [facility] [address] [id number] [address] [place] [address], [place] [address] May, [facility] [place] [facility] [address] [id number] [facility] [place] [address] May, [facility] [place] [facility] [address] [id number] [address] [place] [address], [place] [address] May, [facility] [place] [facility] [address] [id number] [address] [place] [address], [place] [address] Apr, [facility] [place] [facility] [address] [id number] [address] [place] [address], [place] [address] Apr, [facility] [place] [facility] [address] [id number] [address] [place] [address], [place] [address] Apr, [facility] [place] [facility] [address] [id number] [address] [place] [address], [place] [address] Apr, [facility] [address] [id number] [address] [place] [address], [place] [address] March, [facility] [place] [facility] [address] [id number] [address] [place] [address], [place] [address] March, [facility] [address] [id number] [address] [place] [address], [place] [address] Feb, [facility] [place] [facility] [address] [id number] [address] [place] [address], [place] [address] Feb, [facility] [address] [id number] [address] [place] [address], [place] [address] Feb, [facility] [place] [facility] [address] [id number] [address] [place] [address], [place] [address] Feb, [facility] [place] [facility] [address] [id number] [address] [place] [address], [place] [address] Feb, [facility] [place] [facility] [address] [id number] [address] [place] [address], [place] [address] Feb, [facility] [place] [facility] [address] [id number] [address] [place] [address], [place] [address] Feb, [facility] [place] [facility] [address] [id number] [address] [place] [address], [place] [address] Feb, [facility] [address] [id number] [facility] [place] [address] Jan, [facility] [place] [facility] [address] [id number] [facility] [place] [address] Jan, [facility] [address] [id number] [facility] [place] [address] Jan, [facility] [place] [facility] [address] [id number] [address] [place] [address], [place] [address] Jan, [facility] [address] [id number] [facility] [place] [address] Jan, [facility] [address] [id number] [address] [place] [address], [place] [address] Jan, [facility] [address] [id number] [address] [place] [address], [place] [address] Jan, [facility] [place] [facility] [address] [id number] [address] [place] [address], [place] [address] Jan, [facility] [address] [id number] [address] [place] [address], [place] [address] Jan, [facility] [place] [facility] [address] [id number] [address] [place] [address], [place] [address] Jan, [facility] [place] [facility] [address] [id number] [address] [place] [address], [place] [address] Jan, [facility] [place] [facility] [address] [id number] [address] [place] [address], [place] [address] Jan, [facility] [place] [facility] [address] [id number] [address] [place] [address], [place] [address] Jan, [facility] [place] [facility] [address] [id number] [address] [place] [address], [place] [address] Jan, [facility] [place] [facility] [address] [id number] [address] [place] [address], [place] [address] Dec, [facility] [place] [facility] [address] [id number] [address] [place] [id number] 13 Dec, 2013 [facility] [address] [id number] [address] [place] [phone] Nov, [facility] [address] [id number] [address] [place] [id number] Nov, [facility] [address] [id number] [address] [place] [phone] Nov, [facility] [address] [id number] [address] [place] [id number] Nov, [facility] [address] [id number] [address] [place] [phone] Nov, [facility] [address] [id number] [address] [place] [phone] Nov, [facility] [address] [id number] [address] [place] [id number] Oct, [facility] [address] [id number] [address] [place] [phone] Oct, [facility] [address] [id number] [address] [place] [phone] 14 Sep, 2013 [facility] [address] [id number] [address] [place] [id number] 14 Sep, 2013 [facility] [address] [id number] [address] [place] [phone] Sep, [facility] [address] [id number] [address] [place] [phone] Sep, [facility] [address] [id number] [address] [place] [phone] Aug, [facility] [address] [id number] [address] [place] [phone] Aug, IMMUNIZATIONS No Known Immunizations SOCIAL HISTORY Never Assessed REASON FOR VISIT PLAN OF CARE VITAL SIGNS Height 69 in 2014-10-07 Weight 225.9 lbs 2014-10-07 Temperature 97.6 degrees Fahrenheit 2014-10-07 Heart Rate 82 bpm 2014-10-07 Respiratory Rate 18 2014-10-07 Blood pressure systolic 128 mmHg 2014-10-07 Blood pressure diastolic 86 mmHg 2014-10-07 MEDICATIONS Unknown Medications RESULTS No Results PROCEDURES [...] History Stroke Had poor equilibrium Was at [facility] 08/28/2013 Hospitalization History staph infection Hospitalization History Gout 06/05/16
--- OUTSIDE RECORDS SUMMARY | 2020-05-23 21:57 | XMS REPORT ---
Author Author Maurice Krause Organization [facility] Address [address] [place] [address] Care Team Providers Care Product Marketing Director Name Role Phone LASHAUN Krause Unavailable PROBLEMS Type Condition ICD9-CM Code QLA95-MY Code Onset Dates Condition S tatus SNOMED Code Problem Hyperlipidemia E78.5 Active 49247 004 Problem COPD (chronic obstructive pulmonary disease) J44.9 Active 23422245 Problem Hypertension I10 Active 9009492 3 Problem Shortness of breath R06.02 Active 183455398 Problem History of CVA (cerebrovascular accident) Z86.73 Active 333570185 ALLERGIES No Information ENCOUNTERS Encounter Location Date Diagnosis [place] [address] [place] [id number] [address] [place] [address] May, [facility] [address] [place] [address] May, Acute idiopathic gout, unspe cified site M10.00 and Dehydration E86.0 [facility] [address] [place] [id number] [address] [place] [address] May, Swelling of right knee joint M25.461 and Right ankle swelling M25.471 [facility] [address] [place] [id number] [address] [place] [address] Apr, Ankle swelling, right M25.47 1 [facility] [address] [place] [address] Apr, [place] [id number] [address] [place] [address] Feb, Establishing care with nick guzman, encounter for Z71.89 ; COPD (chronic obstructive pulmonary disease) J44.9 ; History of CVA (cerebrovascular accident) Z86.73 ; Hypertension I10 and Hyperlipidemia E78.5 [place] [address] [facility] [id number] [address] [place] [address] Oct, Shortness of breath R06.02 [facility] [address] [facility] [id number] [address] [place] [address] Oct, Hyperlipidemia E78.5 [place] [address] [place] [id number] [place] [address] Oct, Shortness of breath R06.02 [place] [address] [place] [id number] [address] [place] [address] Oct, Other and unspecified hyperl ipidemia 272.4 [place] [address] [place] [id number] [place] [id number] Oct, Hypertension I10 ; Hyperlipi demia E78.5 and Shortness of breath R06.02 [place] [address] [place] [id number] [address] [place] [address] Jul, Other and unspecified hyperl ipidemia 272.4 [place] [address] [place] [id number] [place] [address] Jul, Essential hypertension, carl gnant 401.0 and Other and unspecified hyperlipidemia 272.4 [place] [address] [place] [id number] [address] [place] [address] May, [place] [address] [place] [id number] [address] [place] [address] May, Essential hypertension, carl gnant 401.0 and Other and unspecified hyperlipidemia 272.4 [place] [address] [place] [id number] [address] [place] [address] Apr, [place] [address] [facility] [id number] [address] [place] [address] Apr, Other and unspecified hyperl ipidemia 272.4 ; Essential hypertension, malignant 401.0 and Shortness of breath 786.05 [facility] [address] [id number] [address] [place] [address], [place] [address] 03 Apr, 2015 [facility] [address] [id number] [address] [place] [address], [place] [address] 14 Feb, 2015 [facility] [address] [id number] [address] [place] [address], [place] [address] 13 Feb, 2015 [facility] [address] [id number] [address] [place] [address], [place] [address] 21 Jan, 2015 [facility] [address] [id number] [address] [place] [address], [place] [address] Jan, [facility] [address] [id number] [address] [place] [address], [place] [address] Jan, [facility] [address] [id number] [address] [place] [address], [place] [address] Jan, [facility] [address] [id number] [address] [place] [address], [place] [address] 18 Jan, 2015 [facility] [address] [id number] [address] [place] [address], [place] [address] Jan, [facility] [address] [id number] [address] [place] [address], [place] [address] Jan, [facility] [address] [id number] [address] [place] [address], [place] [address] Jan, [facility] [address] [id number] [address] [place] [id number] 05 Jan, 2015 [facility] [address] [id number] [address] [place] [address], [place] [address] Jan, [facility] [address] [id number] [address] [place] [address], [place] [address] Dec, [facility] [address] [id number] [address] [place] [address] Dec, [facility] [address] [id number] [address] [place] [address] [place] [address] Sep, [facility] [address] [id number] [address] [place] [address], [place] [address] Sep, [facility] [address] [id number] [address] [place] [address], [place] [address] Sep, [facility] [address] [id number] [address] [place] [address], [place] [address] Sep, [facility] [address] [id number] [address] [place] [address], [place] [address] Sep, [facility] [address] [id number] [address] [place] [address], [place] [address] Sep, [facility] [address] [id number] [address] [place] [address], [place] [address] Aug, [facility] [address] [id number] [address] [place] [address], [place] [address] Aug, [facility] [address] [id number] [address] [place] [address], [place] [address] Aug, [facility] [address] [id number] [address] [place] [address], [place] [address] Aug, [facility] [address] [id number] [address] [place] [address], [place] [address] Jul, [facility] [address] [id number] [address] [place] [address], [place] [address] Jul, [facility] [address] [id number] [address] [place] [address], [place] [address] Jun, [facility] [address] [id number] [address] [place] [address], [place] [address] Jun, [facility] [address] [id number] [address] [place] [address], [place] [address] May, [facility] [address] [id number] [address] [place] [address], [place] [address] May, [facility] [address] [id number] [facility] [place] [address] May, [facility] [address] [id number] [address] [place] [address], [place] [address] May, [facility] [address] [id number] [address] [place] [address], [place] [address] Apr, [facility] [address] [id number] [address] [place] [address], [place] [address] Apr, [facility] [address] [id number] [address] [place] [address], [place] [address] Apr, [facility] [address] [id number] [address] [place] [address], [place] [address] Apr, [facility] [address] [id number] [address] [place] [address], [place] [address] March, [facility] [address] [id number] [address] [place] [address], [place] [address] March, [facility] [address] [id number] [address] [place] [address], [place] [address] Feb, [facility] [address] [id number] [address] [place] [address], [place] [address] Feb, [facility] [address] [id number] [address] [place] [address], [place] [address] Feb, [facility] [address] [id number] [address] [place] [address], [place] [address] Feb, [facility] [address] [id number] [address] [place] [address], [place] [address] Feb, [facility] [address] [id number] [address] [place] [address], [place] [address] Feb, [facility] [address] [id number] [address] [place] [address], [place] [address] Feb, [facility] [address] [id number] [address] [place] [address], [place] [address] Feb, [facility] [address] [id number] [facility] [place] [address] Jan, [facility] [address] [id number] [facility] [place] [address] Jan, [facility] [address] [id number] [facility] [place] [address] Jan, [facility] [address] [id number] [address] [place] [address], [place] [address] Jan, [facility] [address] [id number] [facility] [place] [address] Jan, [facility] [address] [id number] [address] [place] [address], [place] [address] Jan, [facility] [address] [id number] [address] [place] [address], [place] [address] Jan, [facility] [address] [id number] [address] [place] [address], [place] [address] Jan, [facility] [address] [id number] [address] [place] [address], [place] [address] Jan, [facility] [address] [id number] [address] [place] [address], [place] [address] Jan, [facility] [address] [id number] [address] [place] [address], [place] [address] Jan, [facility] [address] [id number] [address] [place] [address], [place] [address] Jan, [facility] [address] [id number] [address] [place] [address], [place] [address] Jan, [facility] [address] [id number] [address] [place] [address], [place] [address] Jan, [facility] [address] [id number] [address] [place] [address], [place] [address] Dec, [facility] [address] [id number] [address] [place] [address] 13 Dec, 2013 [facility] [address] [id number] [address] [place] [address] Nov, [facility] [address] [id number] [address] [place] [address] Nov, [facility] [address] [id number] [address] [place] [address] Nov, [facility] [address] [id number] [address] [place] [address] Nov, [facility] [address] [id number] [address] [place] [address] Nov, [facility] [address] [id number] [address] [place] [address] Nov, [facility] [address] [id number] [address] [place] [address] Oct, [facility] [address] [id number] [address] [place] [address] 18 Oct, 2013 [facility] [address] [id number] [address] [place] [address] 14 Sep, 2013 [facility] [address] [id number] [address] [place] [address] 14 Sep, 2013 [facility] [address] [id number] [address] [place] [address] Sep, [facility] [address] [id number] [address] [place] [address] Sep, [facility] [address] [id number] [address] [place] [address] Aug, [facility] [address] [id number] [address] [place] [address] Aug, IMMUNIZATIONS No Known Immunizations SOCIAL HISTORY Never Assessed REASON FOR VISIT PLAN OF CARE VITAL SIGNS Blood pressure systolic 130 mmHg 2014-09-11 Blood pressure diastolic 80 mmHg 2014-09-11 MEDICATIONS Unknown Medications RESULTS No Results PROCEDURES Procedure Date Ordered Result Body Site BLOOD PRESSURE, MEASURED Sep 11, 2014 INSTRUCTIONS MEDICATIONS ADMINISTERED No Known Medications MEDICAL (GENERAL) HISTORY Type Description Date Medical History Stroke 08/2013 Medical History Hypertension Medical History Hyperlipidemia Medical History whooping cough as a child Medical History rheumatic fever as a child Medical History echocardiogram--10/2015--Dr. Daniel Ibarra--Normal repeat in 5 years Medical History Gout Hospitalization History Stroke Had poor equilibrium Was at [facility] 08/28/2013 Hospitalization History staph infection Hospitalization History Gout 06/05/16
--- OUTSIDE RECORDS SUMMARY | 2020-05-23 21:57 | XMS REPORT ---
Author Author Maurice Krause Organization [facility] Address [address] [place] [address] Care Team Providers Care Dairy Bar Manager Name Role Phone LASHAUN Krause Unavailable PROBLEMS Type Condition ICD9-CM Code HWJ20-CS Code Onset Dates Condition S tatus SNOMED Code Problem Hyperlipidemia E78.5 Active 56286 004 Problem COPD (chronic obstructive pulmonary disease) J44.9 Active 04566810 Problem Hypertension I10 Active 0812205 3 Problem Shortness of breath R06.02 Active 325120460 Problem History of CVA (cerebrovascular accident) Z86.73 Active 464743098 ALLERGIES No Information ENCOUNTERS Encounter Location Date Diagnosis [place] [address] [place] [id number] [place] [id number] May, [facility] [address] [place] [address] May, Acute idiopathic gout, unspe cified site M10.00 and Dehydration E86.0 [facility] [address] [place] [id number] [address] [place] [address] May, Swelling of right knee joint M25.461 and Right ankle swelling M25.471 [facility] [address] [id number] [address] [place] [address] Apr, Ankle swelling, right M25.47 1 [facility] [address] [place] [address] Apr, [place] [id number] [place] [address] Feb, Establishing care with nick guzman, encounter for Z71.89 ; COPD (chronic obstructive pulmonary disease) J44.9 ; History of CVA (cerebrovascular accident) Z86.73 ; Hypertension I10 and Hyperlipidemia E78.5 [place] [address] [facility] [id number] [address] [place] [address] Oct, Shortness of breath R06.02 [facility] [address] [facility] [id number] [address] [place] [address] Oct, Hyperlipidemia E78.5 [place] [address] [place] [id number] [place] [address] Oct, Shortness of breath R06.02 [place] [address] [place] [id number] [address] [place] [address] Oct, Other and unspecified hyperl ipidemia 272.4 [place] [address] [place] [id number] [place] [address] Oct, Hypertension I10 ; Hyperlipi demia E78.5 and Shortness of breath R06.02 [place] [address] [place] [id number] [address] [place] [id number] Jul, Other and unspecified hyperl ipidemia 272.4 [place] [address] [place] [id number] [place] [address] Jul, Essential hypertension, carl gnant 401.0 and Other and unspecified hyperlipidemia 272.4 [place] [address] [place] [id number] [address] [place] [id number] May, [place] [address] [place] [id number] [address] [place] [id number] May, Essential hypertension, carl gnant 401.0 and Other and unspecified hyperlipidemia 272.4 [place] [address] [place] [id number] [address] [place] [address] Apr, [place] [address] [facility] [id number] [address] [place] [address] Apr, Other and unspecified hyperl ipidemia 272.4 ; Essential hypertension, malignant 401.0 and Shortness of breath 786.05 [facility] [address] [id number] [address] [place] [address], [place] [address] 03 Apr, 2015 [facility] [address] [id number] [address] [place] [address], [place] [address] 14 Feb, 2015 [facility] [address] [id number] [address] [place] [address], [place] [address] 13 Feb, 2015 [facility] [address] [id number] [address] [place] [address], [place] [address] 21 Jan, 2015 [facility] [address] [id number] [address] [place] [address], [place] [address] Jan, [facility] [address] [id number] [address] [place] [address], [place] [address] Jan, [facility] [address] [id number] [address] [place] [address], [place] [address] Jan, [facility] [address] [id number] [address] [place] [address], [place] [address] 18 Jan, 2015 [facility] [address] [id number] [address] [place] [address], [place] [address] Jan, [facility] [address] [id number] [address] [place] [address], [place] [address] Jan, [facility] [address] [id number] [address] [place] [address], [place] [address] Jan, [facility] [address] [id number] [address] [place] [id number] 05 Jan, 2015 [facility] [address] [id number] [address] [place] [address], [place] [address] Jan, [facility] [address] [id number] [address] [place] [address], [place] [address] Dec, [facility] [address] [id number] [address] [place] [address] Dec, [facility] [address] [id number] [address] [place] [address] [place] [address] Sep, [facility] [address] [id number] [address] [place] [address], [place] [address] Sep, [facility] [address] [id number] [address] [place] [address], [place] [address] Sep, [facility] [address] [id number] [address] [place] [address], [place] [address] Sep, [facility] [address] [id number] [address] [place] [address], [place] [address] Sep, [facility] [address] [id number] [address] [place] [address], [place] [address] Sep, [facility] [address] [id number] [address] [place] [address], [place] [address] Aug, [facility] [address] [id number] [address] [place] [address], [place] [address] Aug, [facility] [address] [id number] [address] [place] [address], [place] [address] Aug, [facility] [address] [id number] [address] [place] [address], [place] [address] Aug, [facility] [address] [id number] [address] [place] [address], [place] [address] Jul, [facility] [address] [id number] [address] [place] [address], [place] [address] Jul, [facility] [address] [id number] [address] [place] [address], [place] [address] Jun, [facility] [address] [id number] [address] [place] [address], [place] [address] Jun, [facility] [address] [id number] [address] [place] [address], [place] [address] May, [facility] [address] [id number] [address] [place] [address], [place] [address] May, [facility] [address] [id number] [facility] [place] [address] May, [facility] [address] [id number] [address] [place] [address], [place] [address] May, [facility] [address] [id number] [address] [place] [address], [place] [address] Apr, [facility] [address] [id number] [address] [place] [address], [place] [address] Apr, [facility] [address] [id number] [address] [place] [address], [place] [address] Apr, [facility] [address] [id number] [address] [place] [address], [place] [address] Apr, [facility] [address] [id number] [address] [place] [address], [place] [address] March, [facility] [address] [id number] [address] [place] [address], [place] [address] March, [facility] [address] [id number] [address] [place] [address], [place] [address] Feb, [facility] [address] [id number] [address] [place] [address], [place] [address] Feb, [facility] [address] [id number] [address] [place] [address], [place] [address] Feb, [facility] [address] [id number] [address] [place] [address], [place] [address] Feb, [facility] [address] [id number] [address] [place] [address], [place] [address] Feb, [facility] [address] [id number] [address] [place] [address], [place] [address] Feb, [facility] [address] [id number] [address] [place] [address], [place] [address] Feb, [facility] [address] [id number] [address] [place] [address], [place] [address] Feb, [facility] [address] [id number] [facility] [place] [address] Jan, [facility] [address] [id number] [facility] [address] Jan, [facility] [address] [id number] [facility] [address] Jan, [facility] [address] [id number] [address] [place] [address], [place] [address] Jan, [facility] [address] [id number] [facility] [address] Jan, [facility] [address] [id number] [address] [place] [address], [place] [address] Jan, [facility] [address] [id number] [address] [place] [address], [place] [address] Jan, [facility] [address] [id number] [address] [place] [address], [place] [address] Jan, [facility] [address] [id number] [address] [place] [address], [place] [address] Jan, [facility] [address] [id number] [address] [place] [address], [place] [address] Jan, [facility] [address] [id number] [address] [place] [address], [place] [address] Jan, [facility] [address] [id number] [address] [place] [address], [place] [address] Jan, [facility] [address] [id number] [address] [place] [address], [place] [address] Jan, [facility] [address] [id number] [address] [place] [address], [place] [address] Jan, [facility] [address] [id number] [address] [place] [address], [place] [address] Dec, [facility] [address] [id number] [address] [place] [address] 13 Dec, 2013 [facility] [address] [id number] [address] [place] [address] Nov, [facility] [address] [id number] [address] [place] [address] Nov, [facility] [address] [id number] [address] [place] [address] Nov, [facility] [address] [id number] [address] [place] [address] Nov, [facility] [address] [id number] [address] [place] [address] Nov, [facility] [address] [id number] [address] [place] [address] Nov, [facility] [address] [id number] [address] [place] [address] Oct, [facility] [address] [id number] [address] [place] [address] Oct, [facility] [address] [id number] [address] [place] [id number] 14 Sep, 2013 [facility] [address] [id number] [address] [place] [id number] 14 Sep, 2013 [facility] [address] [id number] [address] [place] [address] Sep, [facility] [address] [id number] [address] [place] [address] Sep, [facility] [address] [id number] [address] [place] [id number] Aug, [facility] [address] [id number] [address] [place] [address] Aug, IMMUNIZATIONS No Known Immunizations SOCIAL HISTORY Never Assessed REASON FOR VISIT PLAN OF CARE VITAL SIGNS Blood pressure systolic 128 mmHg 2013-12-18 Blood pressure diastolic 90 mmHg 2013-12-18 MEDICATIONS Unknown Medications RESULTS No Results PROCEDURES Procedure Date Ordered Result Body Site BLOOD PRESSURE, MEASURED Dec 18, 2013 INSTRUCTIONS MEDICATIONS ADMINISTERED No Known Medications MEDICAL [...]
--- OUTSIDE RECORDS SUMMARY | 2020-05-23 21:57 | XMS REPORT ---
Author Author Maurice Krause Organization [facility] Address [address] [place] [address] Care Team Providers Care Artificial Foliage Arranger Name Role Phone LASHAUN Krause Unavailable PROBLEMS Type Condition ICD9-CM Code KQF73-DX Code Onset Dates Condition S tatus SNOMED Code Problem Hyperlipidemia E78.5 Active 84335 004 Problem COPD (chronic obstructive pulmonary disease) J44.9 Active 61788863 Problem Hypertension I10 Active 1735798 3 Problem Shortness of breath R06.02 Active 532200628 Problem History of CVA (cerebrovascular accident) Z86.73 Active [id number] ALLERGIES No Information ENCOUNTERS Encounter Location Date Diagnosis [place] [address] [place] [id number] [address] [place] [id number] May, [facility] [address] [place] [address] May, Acute idiopathic gout, unspe cified site M10.00 and Dehydration E86.0 [facility] [address] [id number] [address] [place] [address] May, Swelling of right knee joint M25.461 and Right ankle swelling M25.471 [facility] [address] [id number] [address] [place] [address] Apr, Ankle swelling, right M25.47 1 [facility] [address] [place] [phone] Apr, [facility] [address] [place], [place] [id number] [address] [place] [address] Feb, Establishing care with nick guzman, encounter for Z71.89 ; COPD (chronic obstructive pulmonary disease) J44.9 ; History of CVA (cerebrovascular accident) Z86.73 ; Hypertension I10 and Hyperlipidemia E78.5 [place] [address] [facility] [id number] [address] [place] [address] Oct, Shortness of breath R06.02 [facility] [address] [facility] [id number] [address] [place] [address] Oct, Hyperlipidemia E78.5 [place] [address] [place] [id number] [place] [address] Oct, Shortness of breath R06.02 [place] [address] [place] [id number] [address] [place] [address] Oct, Other and unspecified hyperl ipidemia 272.4 [place] [address] [place] [id number] [place] [address] Oct, Hypertension I10 ; Hyperlipi demia E78.5 and Shortness of breath R06.02 [place] [address] [place] [id number] [address] [place] [address] Jul, Other and unspecified hyperl ipidemia 272.4 [place] [address] [place] [id number] [place] [phone] Jul, Essential hypertension, carl gnant 401.0 and Other and unspecified hyperlipidemia 272.4 [place] [address] [place] [id number] [place] [address] May, [place] [address] [place] [id number] [address] [place] [address] May, Essential hypertension, carl gnant 401.0 and Other and unspecified hyperlipidemia 272.4 [place] [address] [place] [id number] [address] [place] [id number] Apr, [place] [address] [facility] [id number] [address] [place] [phone] Apr, Other and unspecified hyperl ipidemia 272.4 ; Essential hypertension, malignant 401.0 and Shortness of breath 786.05 [facility] [address] [id number] [address] [place] [address], [place] [address] 03 Apr, 2015 [facility] [address] [id number] [address] [place] [address], [place] [address] 14 Feb, 2015 [facility] [address] [id number] [address] [place] [address], [place] [address] 13 Feb, 2015 [facility] [address] [id number] [address] [place] [address], [place] [address] 21 Jan, 2015 [facility] [address] [id number] [address] [place] [address], [place] [address] Jan, [facility] [address] [id number] [address] [place] [address], [place] [address] Jan, [facility] [address] [id number] [address] [place] [address], [place] [address] Jan, [facility] [address] [id number] [address] [place] [address], [place] [address] 18 Jan, 2015 [facility] [address] [id number] [address] [place] [address], [place] [address] Jan, [facility] [address] [id number] [address] [place] [address], [place] [address] Jan, [facility] [address] [id number] [address] [place] [address], [place] [address] Jan, [facility] [address] [id number] [address] [place] [id number] 05 Jan, 2015 [facility] [address] [id number] [address] [place] [address], [place] [address] Jan, [facility] [address] [id number] [address] [place] [address], [place] [address] Dec, [facility] [address] [id number] [address] [place] [id number] Dec, [facility] [address] [id number] [address] [place] [address] [place] [address] Sep, [facility] [address] [id number] [address] [place] [address], [place] [address] Sep, [facility] [address] [id number] [address] [place] [address], [place] [address] Sep, [facility] [address] [id number] [address] [place] [address], [place] [address] Sep, [facility] [address] [id number] [address] [place] [address], [place] [address] Sep, [facility] [address] [id number] [address] [place] [address], [place] [address] Sep, [facility] [address] [id number] [address] [place] [address], [place] [address] Aug, [facility] [address] [id number] [address] [place] [address], [place] [address] Aug, [facility] [address] [id number] [address] [place] [address], [place] [address] Aug, [facility] [address] [id number] [address] [place] [address], [place] [address] Aug, [facility] [address] [id number] [address] [place] [address], [place] [address] Jul, [facility] [address] [id number] [address] [place] [address], [place] [address] Jul, [facility] [address] [id number] [address] [place] [address], [place] [address] Jun, [facility] [address] [id number] [address] [place] [address], [place] [address] Jun, [facility] [address] [id number] [address] [place] [address], [place] [address] May, [facility] [address] [id number] [address] [place] [address], [place] [address] May, [facility] [address] [id number] [facility] [address] May, [facility] [address] [id number] [address] [place] [address], [place] [address] May, [facility] [address] [id number] [address] [place] [address], [place] [address] Apr, [facility] [address] [id number] [address] [place] [address], [place] [address] Apr, [facility] [address] [id number] [address] [place] [address], [place] [address] Apr, [facility] [address] [id number] [address] [place] [address], [place] [address] Apr, [facility] [address] [id number] [address] [place] [address], [place] [address] March, [facility] [address] [id number] [address] [place] [address], [place] [address] March, [facility] [address] [id number] [address] [place] [address], [place] [address] Feb, [facility] [address] [id number] [address] [place] [address], [place] [address] Feb, [facility] [address] [id number] [address] [place] [address], [place] [address] Feb, [facility] [address] [id number] [address] [place] [address], [place] [address] Feb, [facility] [address] [id number] [address] [place] [address], [place] [address] Feb, [facility] [address] [id number] [address] [place] [address], [place] [address] Feb, [facility] [address] [id number] [address] [place] [address], [place] [address] Feb, [facility] [address] [id number] [address] [place] [address], [place] [address] Feb, [facility] [address] [id number] [facility] [address] Jan, [facility] [address] [id number] [facility] [place] [address] Jan, [facility] [address] [id number] [facility] [place] [address] Jan, [facility] [address] [id number] [address] [place] [address], [place] [address] Jan, [facility] [address] [id number] [facility] [place] [address] Jan, [facility] [address] [id number] [address] [place] [address], [place] [address] Jan, [facility] [address] [id number] [address] [place] [address], [place] [address] Jan, [facility] [address] [id number] [address] [place] [address], [place] [address] Jan, [facility] [address] [id number] [address] [place] [address], [place] [address] Jan, [facility] [address] [id number] [address] [place] [address], [place] [address] Jan, [facility] [address] [id number] [address] [place] [address], [place] [address] Jan, [facility] [address] [id number] [address] [place] [address], [place] [address] Jan, [facility] [address] [id number] [address] [place] [address], [place] [address] Jan, [facility] [address] [id number] [address] [place] [address], [place] [address] Jan, [facility] [address] [id number] [address] [place] [address], [place] [address] Dec, [facility] [address] [id number] [address] [place] [id number] 13 Dec, 2013 [facility] [address] [id number] [address] [place] [address] Nov, [facility] [address] [id number] [address] [place] [address] Nov, [facility] [address] [id number] [address] [place] [address] Nov, [facility] [address] [id number] [address] [place] [address] Nov, [facility] [address] [id number] [address] [place] [address] Nov, [facility] [address] [id number] [address] [place] [address] Nov, [facility] [address] [id number] [address] [place] [id number] Oct, [facility] [address] [id number] [address] [place] [id number] Oct, [facility] [address] [id number] [address] [place] [id number] Sep, [facility] [address] [id number] [address] [place] [id number] 14 Sep, 2013 [facility] [address] [id number] [address] [place] [id number] Sep, [facility] [address] [id number] [address] [place] [id number] Sep, [facility] [address] [id number] [address] [place] [address] Aug, [facility] [address] [id number] [address] [place] [id number] Aug, IMMUNIZATIONS No Known Immunizations SOCIAL HISTORY [...] History Stroke Had poor equilibrium Was at [facility] 08/28/2013 Hospitalization History staph infection Hospitalization History Gout 06/05/16
--- OUTSIDE RECORDS SUMMARY | 2020-05-23 21:57 | XMS REPORT ---
Author Author Maurice Krause Organization [facility], [place] Address [address] [place] [address] Care Team Providers Care Licensed Occupational Therapist Name Role Phone LASHAUN Krause Unavailable PROBLEMS Type Condition ICD9-CM Code QZU41-SB Code Onset Dates Condition S tatus SNOMED Code Problem Hyperlipidemia E78.5 Active 15961 004 Problem COPD (chronic obstructive pulmonary disease) J44.9 Active 83192318 Problem Hypertension I10 Active 5596167 3 Problem Shortness of breath R06.02 Active 047024017 Problem History of CVA (cerebrovascular accident) Z86.73 Active 766991835 ALLERGIES No Information ENCOUNTERS Encounter Location Date Diagnosis [place] [address] [place] [id number] [address] [place] [id number] May, [facility] [place] [address] [place] [address] May, Acute idiopathic gout, unspe cified site M10.00 and Dehydration E86.0 [facility] [address] [place] [id number] [address] [place] [address] May, Swelling of right knee joint M25.461 and Right ankle swelling M25.471 [facility] [address] [place] [id number] [address] [place] [address] Apr, Ankle swelling, right M25.47 1 [facility] [place] [address] [place] [address] Apr, [facility] [place] [address] [place], [place] [id number] [address] [place] [address] Feb, Establishing care with nick guzman, encounter for Z71.89 ; COPD (chronic obstructive pulmonary disease) J44.9 ; History of CVA (cerebrovascular accident) Z86.73 ; Hypertension I10 and Hyperlipidemia E78.5 [place] [address] [facility] [id number] [address] [place] [address] Oct, Shortness of breath R06.02 [facility] [place] [address] [facility] [id number] [address] [place] [address] Oct, Hyperlipidemia E78.5 [place] [address] [place] [id number] [place] [address] Oct, Shortness of breath R06.02 [place] [address] [place] [id number] [address] [place] [address] Oct, Other and unspecified hyperl ipidemia 272.4 [place] [address] [place] [id number] [place] [address] Oct, Hypertension I10 ; Hyperlipi demia E78.5 and Shortness of breath R06.02 [place] [address] [place] [id number] [address] [place] [address] Jul, Other and unspecified hyperl ipidemia 272.4 [place] [address] [place] [id number] [place] [address] Jul, Essential hypertension, carl gnant 401.0 and Other and unspecified hyperlipidemia 272.4 [place] [address] [place] [id number] [address] [place] [address] May, [place] [address] [place] [id number] [address] [place] [address] May, Essential hypertension, carl gnant 401.0 and Other and unspecified hyperlipidemia 272.4 [place] [address] [place] [id number] [address] [place] [id number] Apr, [place] [address] [facility] [id number] [address] [place] [address] Apr, Other and unspecified hyperl ipidemia 272.4 ; Essential hypertension, malignant 401.0 and Shortness of breath 786.05 [facility] [address] [id number] [address] [place] [address], [place] [address] 03 Apr, 2015 [facility] [address] [id number] [address] [place] [address], [place] [address] 14 Feb, 2015 [facility] [address] [id number] [address] [place] [address], [place] [address] 13 Feb, 2015 [facility] [address] [id number] [address] [place] [address], [place] [address] 21 Jan, 2015 [facility] [address] [id number] [address] [place] [address], [place] [address] Jan, [facility] [address] [id number] [address] [place] [address], [place] [address] Jan, [facility] [address] [id number] [address] [place] [address], [place] [address] Jan, [facility] [address] [id number] [address] [place] [address], [place] [address] 18 Jan, 2015 [facility] [address] [id number] [address] [place] [address], [place] [address] Jan, [facility] [address] [id number] [address] [place] [address], [place] [address] Jan, [facility] [address] [id number] [address] [place] [address], [place] [address] Jan, [facility] [address] [id number] [address] [place] [id number] 05 Jan, 2015 [facility] [place] [facility] [address] [id number] [address] [place] [address], [place] [address] Jan, [facility] [place] [facility] [address] [id number] [address] [place] [address], [place] [address] Dec, [facility] [place] [facility] [address] [id number] [address] [place] [phone] Dec, [facility] [address] [id number] [address] [place] [address] [place] [address] Sep, [facility] [place] [facility] [address] [id number] [address] [place] [address], [place] [address] Sep, [facility] [place] [facility] [address] [id number] [address] [place] [address], [place] [address] Sep, [facility] [place] [facility] [address] [id number] [address] [place] [address], [place] [address] Sep, [facility] [place] [facility] [address] [id number] [address] [place] [address], [place] [address] Sep, [facility] [place] [facility] [address] [id number] [address] [place] [address], [place] [address] Sep, [facility] [place] [facility] [address] [id number] [address] [place] [address], [place] [address] Aug, [facility] [place] [facility] [address] [id number] [address] [place] [address], [place] [address] Aug, [facility] [place] [facility] [address] [id number] [address] [place] [address], [place] [address] Aug, [facility] [place] [facility] [address] [id number] [address] [place] [address], [place] [address] Aug, [facility] [place] [facility] [address] [id number] [address] [place] [address], [place] [address] Jul, [facility] [place] [facility] [address] [id number] [address] [place] [address], [place] [address] Jul, [facility] [place] [facility] [address] [id number] [address] [place] [address], [place] [address] Jun, [facility] [place] [facility] [address] [id number] [address] [place] [address], [place] [address] Jun, [facility] [place] [facility] [address] [id number] [address] [place] [address], [place] [address] May, [facility] [place] [facility] [address] [id number] [address] [place] [address], [place] [address] May, [facility] [place] [facility] [address] [id number] [facility] [place] [address] May, [facility] [place] [facility] [address] [id number] [address] [place] [address], [place] [address] May, [facility] [place] [facility] [address] [id number] [address] [place] [address], [place] [address] Apr, [facility] [place] [facility] [address] [id number] [address] [place] [address], [place] [address] Apr, [facility] [place] [facility] [address] [id number] [address] [place] [address], [place] [address] Apr, [facility] [place] [facility] [address] [id number] [address] [place] [address], [place] [address] Apr, [facility] [address] [id number] [address] [place] [address], [place] [address] March, [facility] [place] [facility] [address] [id number] [address] [place] [address], [place] [address] March, [facility] [address] [id number] [address] [place] [address], [place] [address] Feb, [facility] [place] [facility] [address] [id number] [address] [place] [address], [place] [address] Feb, [facility] [address] [id number] [address] [place] [address], [place] [address] Feb, [facility] [place] [facility] [address] [id number] [address] [place] [address], [place] [address] Feb, [facility] [place] [facility] [address] [id number] [address] [place] [address], [place] [address] Feb, [facility] [place] [facility] [address] [id number] [address] [place] [address], [place] [address] Feb, [facility] [place] [facility] [address] [id number] [address] [place] [address], [place] [address] Feb, [facility] [place] [facility] [address] [id number] [address] [place] [address], [place] [address] Feb, [facility] [address] [id number] [facility] [place] [address] Jan, [facility] [place] [facility] [address] [id number] [facility] [place] [address] Jan, [facility] [address] [id number] [facility] [place] [address] Jan, [facility] [place] [facility] [address] [id number] [address] [place] [address], [place] [address] Jan, [facility] [address] [id number] [facility] [place] [address] Jan, [facility] [address] [id number] [address] [place] [address], [place] [address] Jan, [facility] [address] [id number] [address] [place] [address], [place] [address] Jan, [facility] [place] [facility] [address] [id number] [address] [place] [address], [place] [address] Jan, [facility] [address] [id number] [address] [place] [address], [place] [address] Jan, [facility] [place] [facility] [address] [id number] [address] [place] [address], [place] [address] Jan, [facility] [place] [facility] [address] [id number] [address] [place] [address], [place] [address] Jan, [facility] [place] [facility] [address] [id number] [address] [place] [address], [place] [address] Jan, [facility] [place] [facility] [address] [id number] [address] [place] [address], [place] [address] Jan, [facility] [place] [facility] [address] [id number] [address] [place] [address], [place] [address] Jan, [facility] [place] [facility] [address] [id number] [address] [place] [address], [place] [address] Dec, [facility] [place] [facility] [address] [id number] [address] [place] [address] 13 Dec, 2013 [facility] [place] [address] [id number] [address] [place] [address] Nov, [facility] [place] [address] [id number] [address] [place] [address] Nov, [facility] [place] [address] [id number] [address] [place] [address] Nov, [facility] [place] [address] [id number] [address] [place] [address] Nov, [facility] [place] [address] [id number] [address] [place] [id number] Nov, [facility] [place] [address] [id number] [address] [place] [address] Nov, [facility] [place] [address] [id number] [address] [place] [id number] Oct, [facility] [place] [address] [id number] [address] [place] [address] Oct, [facility] [place] [address] [id number] [address] [place] [id number] Sep, [facility] [place] [address] [id number] [address] [place] [address] 14 Sep, 2013 [facility] [place] [address] [id number] [address] [place] [address] Sep, [facility] [place] [address] [id number] [address] [place] [id number] Sep, [facility] [place] [address] [id number] [address] [place] [id number] Aug, [facility] [place] [address] [id number] [address] [place] [id number] Aug, IMMUNIZATIONS No Known Immunizations SOCIAL HISTORY [...] Stroke Had poor equilibrium Was at [facility] 08/28/2013 Hospitalization History staph infection Hospitalization History Gout 06/05/16
--- OUTSIDE RECORDS SUMMARY | 2020-05-23 21:58 | XMS REPORT ---
Author Author Maurice Krause Organization [facility] [place] Address [address] [place] [address] Care Team Providers Care Public Health Director Name Role Phone LASHAUN Krause Unavailable PROBLEMS Type Condition ICD9-CM Code HNG26-GT Code Onset Dates Condition S tatus SNOMED Code Problem Hyperlipidemia E78.5 Active 94154 004 Problem COPD (chronic obstructive pulmonary disease) J44.9 Active 27091956 Problem Hypertension I10 Active 7571921 3 Problem Shortness of breath R06.02 Active 341438065 Problem History of CVA (cerebrovascular accident) Z86.73 Active 244010622 ALLERGIES No Information ENCOUNTERS Encounter Location Date Diagnosis [place] [address] [address] May, [address] [address] May, Acute idiopathic gout, unspecified site M10.00 and Dehydration E86.0 [facility] [address] [place], [place] [id number] [address] [place] [address] May, Swelling of right knee joint M25.461 and Right ankle swelling M25.471 [facility] [address] [place], [place] [id number] [address] [place] [address] Apr, Ankle swelling, right M25.47 1 [place] [address] [address] Apr, [place] [address] [address] Feb, Establishing care with new doctor, samira gaxiola for Z71.89 ; COPD (chronic obstructive pulmonary disease) J44.9 ; History of CVA (cerebrovascular accident) Z86.73 ; Hypertension I10 and Hyperlipidemia E78.5 [facility] [place] [address] [place] [id number] [place] [address] Oct, Shortness of breath R06.02 [facility] [place] [address] [address] Oct, Hyperlipidemia E78.5 [facility] [place] [address] [address] Oct, Shortness of breath R06.02 [facility] [place] [address] [address] Oct, Other and unspecified hyperlipidemia 272 .4 [place] [address] [address] Oct, Hypertension I10 ; Hyperlipidemia E78.5 and Shortness of breath R06.02 [place] [address] [address] Jul, Other and unspecified hyperlipidemia 272 .4 [place] [address] [address] Jul, Essential hypertension, malignant 401.0 and Other and unspecified hyperlipidemia 272.4 [place] [address] [address] May, [facility] [place] [address] [address] May, Essential hypertension, malignant 401.0 and Other and unspecified hyperlipidemia 272.4 [place] [address] [place] [id number] [place] [address] Apr, [place] [address] [address] Apr, Other and unspecified hyperlipidemia 272 .4 ; Essential hypertension, malignant 401.0 and Shortness of breath 786.05 [place] [address] [place] [id number] [place] [address] Apr, [place] [address] [address] 14 Feb, 2014 [facility] [place] [facility] [address] [facility] [id number] [facility] [address] 13 Feb, 2015 [facility] [place] [facility] [address] [facility] [id number] [facility] [place] [address] 21 Jan, 2015 [facility] [place] [facility] [address] [id number] [facility] [place] [address] 21 Jan, 2015 [facility] [place] [facility] [address] [id number] [place] [address] 20 Jan, 2015 [facility] [place] [facility] [address] [facility] [id number] [place] [address] 20 Jan, 2015 [facility] [place] [facility] [address] [id number] [place] [address] 18 Jan, 2015 [facility] [place] [facility] [address] [id number] [facility] [place] [address] 18 Jan, 2015 [facility] [place] [facility] [address] [id number] [facility] [place] [address] 10 Jan, 2014 [facility] [place] [facility] [address] [id number] [facility] [place] [address] 10 Jan, 2015 [facility] [place] [facility] [address] [id number] [facility] [place] [address] 05 Jan, 2014 [facility] [place] [facility] [address] [id number] [place] [address] 05 Jan, 2014 [facility] [place] [facility] [address] [id number] [place] [address] 03 Dec, 2014 [facility] [place] [facility] [address] [facility] [id number] [facility] [place] [address] 03 Dec, 2014 [facility] [place] [facility] [address] [id number] [place] [address] 18 Sep, 2014 [facility] [place] [facility] [address] [id number] [facility] [place] [address] 18 Sep, 2014 [facility] [place] [facility] [address] [id number] [place] [address] Sep, [facility] [place] [facility] [address] [id number] [place] [address] Sep, [facility] [place] [facility] [address] [id number] [place] [address] Sep, [facility] [place] [facility] [address] [id number] [place] [address] Sep, [facility] [place] [facility] [address] [id number] [place] [address] Aug, [facility] [place] [facility] [address] [id number] [place] [address] Aug, [facility] [place] [facility] [address] [id number] [place] [address] Aug, [facility] [place] [facility] [address] [id number] [place] [address] Aug, [facility] [place] [facility] [address] [id number] [place] [address] Jul, [facility] [place] [facility] [address] [id number] [place] [address] Jul, [facility] [place] [facility] [address] [id number] [place] [address] Jun, [facility] [place] [facility] [address] [id number] [place] [address] Jun, [facility] [place] [facility] [address] [id number] [place] [address] May, [facility] [place] [facility] [address] [id number] [place] [address] May, [facility] [place] [facility] [address] [id number] [place] [address] May, [facility] [place] [facility] [address] [id number] [place] [address] May, [facility] [place] [facility] [address] [id number] [place] [address] Apr, [facility] [place] [facility] [address] [id number] [place] [address] Apr, [facility] [place] [facility] [address] [facility] [id number] [place] [address] Apr, [facility] [place] [facility] [address] [facility] [id number] [place] [address] Apr, [facility] [place] [facility] [address] [id number] [place] [address] March, [facility] [place] [facility] [address] [id number] [place] [address] March, [facility] [place] [facility] [address] [facility] [id number] [place] [address] Feb, [facility] [place] [facility] [address] [id number] [place] [address] Feb, [facility] [place] [facility] [address] [id number] [place] [address] Feb, [facility] [place] [facility] [address] [id number] [place] [address] Feb, [facility] [place] [facility] [address] [id number] [place] [address] Feb, [facility] [place] [facility] [address] [id number] [place] [address] Feb, [facility] [place] [facility] [address] [id number] [place] [address] Feb, [facility] [place] [facility] [address] [id number] [place] [address] Feb, [facility] [place] [facility] [address] [facility] [id number] [place] [address] Jan, [facility] [address] [facility] [address] [id number] [place] [address] Jan, [facility] [id number] [place] [address] Jan, [facility] [address] [id number] [place] [address] Jan, [facility] [address] [id number] [place] [address] Jan, [facility] [address] [facility] [id number] [place] [address] Jan, [facility] [address] [facility] [id number] [place] [address] Jan, [facility] [address] [facility] [id number] [place] [address] Jan, [facility] [address] [facility] [address] [id number] [place] [address] Jan, [facility] [address] [facility] [id number] [place] [address] Jan, [facility] [address] [id number] [place] [address] Jan, [facility] [address] [facility] [address] [id number] [place] [address] Jan, [facility] [address] [facility] [address] [id number] [place] [address] Jan, [facility] [address] [facility] [address] [id number] [place] [address] Jan, [facility] [address] [facility] [id number] [place] [address] Dec, [facility] [address] [facility] [address] [id number] [place] [address] Dec, [facility] [address] [id number] [place] [address] Nov, [facility] [address] [facility] [id number] [place] [address] Nov, [facility] [address] [id number] [place] [address] Nov, [facility] [address] [facility] [id number] [place] [address] Nov, [facility] [address] [id number] [place] [address] Nov, [facility] [address] [facility] [id number] [place] [address] Nov, [facility], [place] [id number] [place] [address] Oct, [facility], [place] [id number] [place] [address] Oct, [facility], [place] [id number] [place] [address] Sep, [facility], [place] [id number] [place] [address] Sep, [facility], [place] [address] [address] Sep, [facility], [place] [id number] [place] [address] Sep, [facility], [place] [id number] [place] [address] Aug, [facility], [place] [id number] [place] [address] Aug, IMMUNIZATIONS No Known Immunizations SOCIAL HISTORY [...] Stroke Had poor equilibrium Was at [facility] 08/28/2013 Hospitalization History staph infection Hospitalization History Gout 06/05/16
--- OUTSIDE RECORDS SUMMARY | 2020-05-23 21:58 | XMS REPORT ---
Author Author Maurice Krause Organization [facility] Address [address] [place] [address] Care Team Providers Care Boarder Machine Name Role Phone LASHAUN Krause Unavailable PROBLEMS Type Condition ICD9-CM Code [id number] Code Onset Dates Condition S tatus SNOMED Code Problem Hyperlipidemia E78.5 Active 59105 004 Problem COPD (chronic obstructive pulmonary disease) J44.9 Active 14948627 Problem Hypertension I10 Active 1637863 3 Problem Shortness of breath R06.02 Active 004890047 Problem History of CVA (cerebrovascular accident) Z86.73 Active 327316229 ALLERGIES No Information ENCOUNTERS Encounter Location Date Diagnosis [place] [address] [address] May, [address] [address] May, Acute idiopathic gout, unspecified site M10.[address] [facility] [address] [place] [id number] [address] [place] [address] May, Swelling of right knee joint M25.461 and Right ankle swelling M25.471 [facility] [address] [place], [place] [id number] [address] [place] [address] Apr, Ankle swelling, right M25.47 1 [place] [address] [address] Apr, [place] [address] [address] Feb, Establishing care with new doctor, samira gaxiola for Z71.89 ; COPD (chronic obstructive pulmonary disease) J44.9 ; History of CVA (cerebrovascular accident) Z86.73 ; Hypertension I10 and Hyperlipidemia E78.5 [facility] [address] [place] [id number] [place] [address] Oct, Shortness of breath R06.02 [facility] [address] [address] Oct, Hyperlipidemia E[address].5 [facility] [address] [address] Oct, Shortness of breath R06.02 [facility] [address] [address] Oct, Other and unspecified hyperlipidemia 272 .4 [place] [address] [address] Oct, Hypertension I10 ; Hyperlipidemia E78.5 and Shortness of breath R06.02 [place] [address] [address] Jul, Other and unspecified hyperlipidemia 272 .4 [place] [address] [address] Jul, Essential hypertension, malignant 401.0 and Other and unspecified hyperlipidemia 272.4 [place] [address] [address] May, [facility] [address] [address] May, Essential hypertension, malignant 401.0 and Other and unspecified hyperlipidemia 272.4 [place] [address] [place] [id number] [place] [address] Apr, [place] [address] [address] Apr, Other and unspecified hyperlipidemia 272 .4 ; Essential hypertension, malignant 401.0 and Shortness of breath 786.05 [place] [address] [id number] [place] [address] Apr, [place] [address] [address] 14 Feb, 2014 [facility] [place] [facility] [address] [facility] [id number] [facility] [place] [address] 13 Feb, 2015 [facility] [place] [facility] [address] [facility] [id number] [facility] [place] [address] 21 Jan, 2015 [facility] [place] [facility] [address] [id number] [facility] [address] 21 Jan, 2015 [facility] [place] [facility] [address] [id number] [place] [address] 20 Jan, 2015 [facility] [place] [facility] [address] [facility] [id number] [place] [address] 20 Jan, 2015 [facility] [place] [facility] [address] [id number] [place] [address] 18 Jan, 2015 [facility] [place] [facility] [address] [id number] [facility] [place] [address] 18 Jan, 2015 [facility] [place] [facility] [address] [id number] [facility] [place] [address] 10 Jan, 2014 [facility] [place] [facility] [address] [id number] [facility] [place] [address] 10 Jan, 2015 [facility] [place] [facility] [address] [id number] [facility] [place] [address] 05 Jan, 2014 [facility] [place] [facility] [address] [id number] [place] [address] 05 Jan, 2014 [facility] [place] [facility] [address] [id number] [place] [address] 03 Dec, 2014 [facility] [place] [facility] [address] [facility] [id number] [facility] [place] [address] 03 Dec, 2014 [facility] [place] [facility] [address] [id number] [place] [address] 18 Sep, 2014 [facility] [place] [facility] [address] [id number] [facility] [place] [address] 18 Sep, 2014 [facility] [place] [facility] [address] [id number] [place] [address] Sep, [facility] [place] [facility] [address] [id number] [place] [address] Sep, [facility] [place] [facility] [address] [id number] [place] [address] Sep, [facility] [place] [facility] [address] [id number] [place] [address] Sep, [facility] [place] [facility] [address] [id number] [place] [address] Aug, [facility] [place] [facility] [address] [id number] [place] [address] Aug, [facility] [place] [facility] [address] [id number] [place] [address] Aug, [facility] [place] [facility] [address] [id number] [place] [address] Aug, [facility] [place] [facility] [address] [id number] [place] [address] Jul, [facility] [place] [facility] [address] [id number] [place] [address] Jul, [facility] [place] [facility] [address] [id number] [place] [address] Jun, [facility] [place] [facility] [address] [id number] [place] [address] Jun, [facility] [place] [facility] [address] [id number] [place] [address] May, [facility] [place] [facility] [address] [id number] [place] [address] May, [facility] [place] [facility] [address] [id number] [place] [address] May, [facility] [place] [facility] [address] [id number] [place] [address] May, [facility] [place] [facility] [address] [id number] [place] [address] Apr, [facility] [place] [facility] [address] [id number] [place] [address] Apr, [facility] [place] [facility] [address] [facility] [id number] [place] [address] Apr, [facility] [place] [facility] [address] [facility] [id number] [place] [address] Apr, [facility] [place] [facility] [address] [id number] [place] [address] March, [facility] [place] [facility] [address] [id number] [place] [address] March, [facility] [place] [facility] [address] [facility] [id number] [place] [address] Feb, [facility] [place] [facility] [address] [id number] [place] [address] Feb, [facility] [place] [facility] [address] [id number] [place] [address] Feb, [facility] [place] [facility] [address] [id number] [place] [address] Feb, [facility] [place] [facility] [address] [id number] [place] [address] Feb, [facility] [place] [facility] [address] [id number] [place] [address] Feb, [facility] [place] [facility] [address] [id number] [place] [address] Feb, [facility] [place] [facility] [address] [id number] [place] [address] Feb, [facility] [place] [facility] [address] [id number] [place] [address] Jan, [facility] [place] [facility] [address] [id number] [place] [address] Jan, [facility] [place] [facility] [address] [id number] [place] [address] Jan, [facility] [place] [facility] [address] [id number] [place] [address] Jan, [facility] [place] [facility] [address] [id number] [place] [address] Jan, [facility] [place] [facility] [address] [facility] [id number] [place] [address] Jan, [facility] [place] [facility] [address] [facility] [id number] [place] [address] Jan, [facility] [place] [facility] [address] [id number] [place] [address] Jan, [facility] [place] [facility] [address] [id number] [place] [address] Jan, [facility] [place] [facility] [address] [facility] [id number] [place] [address] Jan, [facility] [place] [facility] [address] [id number] [place] [address] Jan, [facility] [place] [facility] [address] [id number] [place] [address] Jan, [facility] [place] [facility] [address] [id number] [place] [address] Jan, [facility] [place] [facility] [address] [id number] [place] [address] Jan, [facility] [place] [facility] [address] [id number] [place] [address] Dec, [facility] [place] [facility] [address] [id number] [place] [address] Dec, [facility] [place] [facility] [address] [id number] [place] [address] Nov, [facility] [place] [facility] [address] [facility] [id number] [place] [address] Nov, [facility] [place] [facility] [address] [id number] [place] [address] Nov, [facility] [place] [facility] [address] [id number] [place] [address] Nov, [facility] [place] [facility] [address] [id number] [place] [address] Nov, [facility] [place] [facility] [address] [id number] [place] [address] 15 Nov, 2013 [facility] [address] [id number] [place] [address] Oct, [facility] [address] [id number] [place] [address] Oct, [facility] [address] [place] [id number] [place] [address] [address], [address] [facility] [address] [place] [id number] [place] [address] Sep, [facility] [address] [place] [id number] [place] [address] Sep, [facility] [address] [place] [id number] [place] [address] Sep, [facility] [address] [place] [id number] [place] [address] Aug, [facility] [address] [place] [id number] [place] [address] Aug, IMMUNIZATIONS No Known Immunizations SOCIAL HISTORY Never Assessed REASON FOR VISIT PLAN OF CARE VITAL SIGNS Blood pressure systolic 166 mmHg 2014-02-05 Blood pressure diastolic 100 mmHg 2014-02-05 MEDICATIONS Unknown Medications RESULTS No Results PROCEDURES Procedure Date Ordered Result Body Site BLOOD PRESSURE, MEASURED February 05, 2014 INSTRUCTIONS MEDICATIONS ADMINISTERED No Known Medications MEDICAL (GENERAL) HISTORY Type Description Date Medical History Stroke 08/2013 Medical History Hypertension Medical History Hyperlipidemia Medical History whooping cough as a child Medical History rheumatic fever as a child Medical History echocardiogram--10/2015--Dr. Daniel Ibarra--Normal repeat in 5 years Medical History Gout Hospitalization History Stroke Had poor equilibrium Was at [facility] 08/28/2013 Hospitalization History staph infection Hospitalization History Gout 06/05/16
--- OUTSIDE RECORDS SUMMARY | 2020-05-23 21:58 | XMS REPORT ---
Author Author Mauriec Krause Organization [facility] Address [address] [place] [address] Care Team Providers Care Supervisor Tank House Name Role Phone LASHAUN Krause Unavailable PROBLEMS Type Condition ICD9-CM Code [id number] Code Onset Dates Condition S tatus SNOMED Code Problem Hyperlipidemia E78.5 Active 84317 004 Problem COPD (chronic obstructive pulmonary disease) J44.9 Active 66270331 Problem Hypertension I10 Active 3937009 3 Problem Shortness of breath R06.02 Active 904532665 Problem History of CVA (cerebrovascular accident) Z86.73 Active 782416616 ALLERGIES No Information ENCOUNTERS Encounter Location Date Diagnosis [place] [address] [address] May, [address] [address] May, Acute idiopathic gout, unspecified site M10.00 and Dehydration E86.0 [facility] [address] [place] [id number] [address] [place] [address] May, Swelling of right knee joint M25.461 and Right ankle swelling M25.471 [facility] [address] [place], [place] [id number] [address] [place] [address] Apr, Ankle swelling, right M25.47 1 [place] [address] [address] Apr, [place] [address] [address] Feb, Establishing care with new doctor, samira gaxiola for Z71.89 ; COPD (chronic obstructive pulmonary disease) J44.9 ; History of CVA (cerebrovascular accident) Z86.73 ; Hypertension I10 and Hyperlipidemia E78.5 [facility] [address] [place] [id number] [place] [address] Oct, Shortness of breath R06.02 [facility] [address] [address] Oct, Hyper[address] E[address]5 [facility] [address] [address] Oct, Shortness of breath R06.02 [facility] [address] [address] Oct, Other and unspecified hyperlipidemia 272 .4 [place] [address] [address] Oct, Hypertension I10 ; Hyperlipidemia E78.5 and Shortness of breath R06.02 [place] [address] [address] Jul, Other and unspecified hyperlipidemia 272 .4 [place] [address] [address] Jul, Essential hypertension, malignant 401.0 and Other and unspecified hyperlipidemia 272.4 [place] [address] [address] May, [facility] [address] [address] May, Essential hypertension, malignant 401.0 and Other and unspecified hyperlipidemia 272.4 [place] [address] [place] [id number] [place] [address] Apr, [place] [address] [address] Apr, Other and unspecified hyperlipidemia 272 .4 ; Essential hypertension, malignant 401.0 and Shortness of breath 786.05 [place] [address] [place] [id number] [place] [address] Apr, [place] [address] [address] 14 Feb, 2014 [facility] [place] [facility] [address] [facility] [id number] [facility] [place] [address] 13 Feb, 2015 [facility] [place] [facility] [address] [facility] [id number] [facility] [place] [address] 21 Jan, 2015 [facility] [place] [facility] [address] [id number] [facility] [place] [address] 21 Jan, 2015 [facility] [place] [facility] [address] [id number] [place] [address] 20 Jan, 2015 [facility] [place] [facility] [address] [facility] [id number] [place] [address] 20 Jan, 2015 [facility] [place] [facility] [address] [id number] [place] [address] 18 Jan, 2015 [facility] [place] [facility] [address] [id number] [facility] [place] [address] 18 Jan, 2015 [facility] [place] [facility] [address] [id number] [facility] [place] [address] 10 Jan, 2014 [facility] [place] [facility] [address] [id number] [facility] [place] [address] 10 Jan, 2015 [facility] [place] [facility] [address] [id number] [facility] [place] [address] 05 Jan, 2014 [facility] [place] [facility] [address] [id number] [place] [address] 05 Jan, 2014 [facility] [place] [facility] [address] [id number] [place] [address] 03 Dec, 2014 [facility] [place] [facility] [address] [facility] [id number] [facility] [place] [address] 03 Dec, 2014 [facility] [place] [facility] [address] [id number] [place] [address] 18 Sep, 2014 [facility] [place] [facility] [address] [id number] [facility] [place] [address] 18 Sep, 2014 [facility] [place] [facility] [address] [id number] [place] [address] Sep, [facility] [place] [facility] [address] [id number] [place] [address] Sep, [facility] [place] [facility] [address] [id number] [place] [address] Sep, [facility] [place] [facility] [address] [id number] [place] [address] Sep, [facility] [place] [facility] [address] [id number] [place] [address] Aug, [facility] [place] [facility] [address] [id number] [place] [address] Aug, [facility] [place] [facility] [address] [id number] [place] [address] Aug, [facility] [place] [facility] [address] [id number] [place] [address] Aug, [facility] [place] [facility] [address] [id number] [place] [address] Jul, [facility] [place] [facility] [address] [id number] [place] [address] Jul, [facility] [place] [facility] [address] [id number] [place] [address] Jun, [facility] [place] [facility] [address] [id number] [place] [address] Jun, [facility] [place] [facility] [address] [id number] [place] [address] May, [facility] [place] [facility] [address] [id number] [place] [address] May, [facility] [place] [facility] [address] [id number] [place] [address] May, [facility] [place] [facility] [address] [id number] [place] [address] May, [facility] [place] [facility] [address] [id number] [place] [address] Apr, [facility] [place] [facility] [address] [id number] [place] [address] Apr, [facility] [place] [facility] [address] [facility] [id number] [place] [address] Apr, [facility] [place] [facility] [address] [facility] [id number] [place] [address] Apr, [facility] [place] [facility] [address] [id number] [place] [address] March, [facility] [place] [facility] [address] [id number] [place] [address] March, [facility] [place] [facility] [address] [facility] [id number] [place] [address] Feb, [facility] [place] [facility] [address] [id number] [place] [address] Feb, [facility] [place] [facility] [address] [id number] [place] [address] Feb, [facility] [place] [facility] [address] [id number] [place] [address] Feb, [facility] [place] [facility] [address] [id number] [place] [address] Feb, [facility] [place] [facility] [address] [id number] [place] [address] Feb, [facility] [place] [facility] [address] [id number] [place] [address] Feb, [facility] [place] [facility] [address] [id number] [place] [address] Feb, [facility] [place] [facility] [address] [id number] [place] [address] Jan, [facility] [place] [facility] [address] [id number] [place] [address] Jan, [facility] [place] [facility] [address] [id number] [place] [address] Jan, [facility] [place] [facility] [address] [id number] [place] [address] Jan, [facility] [place] [facility] [address] [id number] [place] [address] Jan, [facility] [place] [facility] [address] [facility] [id number] [place] [address] Jan, [facility] [place] [facility] [address] [facility] [id number] [place] [address] Jan, [facility] [place] [facility] [address] [id number] [place] [address] Jan, [facility] [place] [facility] [address] [id number] [place] [address] Jan, [facility] [place] [facility] [address] [facility] [id number] [place] [address] Jan, [facility] [place] [facility] [address] [id number] [place] [address] Jan, [facility] [place] [facility] [address] [id number] [place] [address] Jan, [facility] [place] [facility] [address] [id number] [place] [address] Jan, [facility] [place] [facility] [address] [id number] [place] [address] Jan, [facility] [address] [id number] [place] [address] Dec, [facility] [address] [id number] [place] [address] Dec, [facility] [address] [id number] [place] [address] Nov, [facility] [address] [facility] [id number] [place] [address] Nov, [facility] [address] [id number] [place] [address] Nov, [facility] [address] [id number] [place] [address] Nov, [facility] [address] [id number] [place] [address] Nov, [facility] [address] [id number] [place] [address] Nov, [facility] [id number] [place] [address] Oct, [facility] [address] [id number] [place] [address] Oct, [facility] [address] [id number] [place] [address] Sep, [facility] [id number] [place] [address] Sep, [facility] [address] [address] Sep, [facility] [address] [id number] [place] [address] Sep, [facility] [id number] [place] [address] Aug, [facility] [address] [id number] [place] [address] Aug, IMMUNIZATIONS No Known Immunizations SOCIAL HISTORY [...] History Stroke Had poor equilibrium Was at [facility] 08/28/2013 Hospitalization History staph infection Hospitalization History Gout 06/05/16
--- OUTSIDE RECORDS SUMMARY | 2020-05-23 21:58 | XMS REPORT ---
Author Author Maurice Krause Organization [facility] Address [address] [place] [address] Care Team Providers Care Canvas Worker Name Role Phone LASHAUN Krause Unavailable PROBLEMS Type Condition ICD9-CM Code WNV81-AG Code Onset Dates Condition S tatus SNOMED Code Problem Hyperlipidemia E78.5 Active 46720 004 Problem COPD (chronic obstructive pulmonary disease) J44.9 Active 81332161 Problem Hypertension I10 Active 4072569 3 Problem Shortness of breath R06.02 Active 362976985 Problem History of CVA (cerebrovascular accident) Z86.73 Active 242713601 ALLERGIES No Information ENCOUNTERS Encounter Location Date Diagnosis [place] [address] [place] [id number] [place] [address] May, [facility] [address] [place] [address] May, Acute idiopathic gout, unspe cified site M10.00 and Dehydration E86.0 [facility] [address] [place] [id number] [address] [place] [address] May, Swelling of right knee joint M25.461 and Right ankle swelling M25.471 [facility] [address] [place] [id number] [address] [place] [address] Apr, Ankle swelling, right M25.47 1 [facility] [address] [place] [address] Apr, [place] [id number] [address] [place] [address] Feb, Establishing care with nick guzman, encounter for Z71.89 ; COPD (chronic obstructive pulmonary disease) J44.9 ; History of CVA (cerebrovascular accident) Z86.73 ; Hypertension I10 and Hyperlipidemia E78.5 [place] [address] [facility] [id number] [address] [place] [address] Oct, Shortness of breath R06.02 [facility] [address] [facility] [id number] [address] [place] [address] Oct, Hyperlipidemia E78.5 [place] [address] [place] [id number] [place] [address] Oct, Shortness of breath R06.02 [place] [address] [place] [id number] [address] [place] [address] Oct, Other and unspecified hyperl ipidemia 272.4 [place] [address] [place] [id number] [place] [address] Oct, Hypertension I10 ; Hyperlipi demia E78.5 and Shortness of breath R06.02 [place] [address] [place] [id number] [address] [place] [address] Jul, Other and unspecified hyperl ipidemia 272.4 [place] [address] [place] [id number] [place] [address] Jul, Essential hypertension, carl gnant 401.0 and Other and unspecified hyperlipidemia 272.4 [place] [address] [place] [id number] [address] [place] [address] May, [place] [address] [place] [id number] [address] [place] [address] May, Essential hypertension, carl gnant 401.0 and Other and unspecified hyperlipidemia 272.4 [place] [address] [place] [id number] [address] [place] [address] Apr, [place] [address] [facility] [id number] [address] [place] [address] Apr, Other and unspecified hyperl ipidemia 272.4 ; Essential hypertension, malignant 401.0 and Shortness of breath 786.05 [facility] [address] [id number] [address] [place] [address], [place] [address] 03 Apr, 2015 [facility] [address] [id number] [address] [place] [address], [place] [address] 14 Feb, 2015 [facility] [address] [id number] [address] [place] [address], [place] [address] 13 Feb, 2015 [facility] [address] [id number] [address] [place] [address], [place] [address] 21 Jan, 2015 [facility] [address] [id number] [address] [place] [address], [place] [address] Jan, [facility] [address] [id number] [address] [place] [address], [place] [address] Jan, [facility] [address] [id number] [address] [place] [address], [place] [address] Jan, [facility] [address] [id number] [address] [place] [address], [place] [address] 18 Jan, 2015 [facility] [address] [id number] [address] [place] [address], [place] [address] Jan, [facility] [address] [id number] [address] [place] [address], [place] [address] Jan, [facility] [address] [id number] [address] [place] [address], [place] [address] Jan, [facility] [address] [id number] [address] [place] [id number] 05 Jan, 2015 [facility] [address] [id number] [address] [place] [address], [place] [address] Jan, [facility] [address] [id number] [address] [place] [address], [place] [address] Dec, [facility] [address] [id number] [address] [place] [address] Dec, [facility] [address] [id number] [address] [place] [address] [place] [address] Sep, [facility] [address] [id number] [address] [place] [address], [place] [address] Sep, [facility] [address] [id number] [address] [place] [address], [place] [address] Sep, [facility] [address] [id number] [address] [place] [address], [place] [address] Sep, [facility] [address] [id number] [address] [place] [address], [place] [address] Sep, [facility] [address] [id number] [address] [place] [address], [place] [address] Sep, [facility] [address] [id number] [address] [place] [address], [place] [address] Aug, [facility] [address] [id number] [address] [place] [address], [place] [address] Aug, [facility] [address] [id number] [address] [place] [address], [place] [address] Aug, [facility] [address] [id number] [address] [place] [address], [place] [address] Aug, [facility] [address] [id number] [address] [place] [address], [place] [address] Jul, [facility] [address] [id number] [address] [place] [address], [place] [address] Jul, [facility] [address] [id number] [address] [place] [address], [place] [address] Jun, [facility] [address] [id number] [address] [place] [address], [place] [address] Jun, [facility] [address] [id number] [address] [place] [address], [place] [address] May, [facility] [address] [id number] [address] [place] [address], [place] [address] May, [facility] [address] [id number] [facility] [place] [address] May, [facility] [address] [id number] [address] [place] [address], [place] [address] May, [facility] [address] [id number] [address] [place] [address], [place] [address] Apr, [facility] [address] [id number] [address] [place] [address], [place] [address] Apr, [facility] [address] [id number] [address] [place] [address], [place] [address] Apr, [facility] [address] [id number] [address] [place] [address], [place] [address] Apr, [facility] [address] [id number] [address] [place] [address], [place] [address] March, [facility] [address] [id number] [address] [place] [address], [place] [address] March, [facility] [address] [id number] [address] [place] [address], [place] [address] Feb, [facility] [address] [id number] [address] [place] [address], [place] [address] Feb, [facility] [address] [id number] [address] [place] [address], [place] [address] Feb, [facility] [address] [id number] [address] [place] [address], [place] [address] Feb, [facility] [address] [id number] [address] [place] [address], [place] [address] Feb, [facility] [address] [id number] [address] [place] [address], [place] [address] Feb, [facility] [address] [id number] [address] [place] [address], [place] [address] Feb, [facility] [address] [id number] [address] [place] [address], [place] [address] Feb, [facility] [address] [id number] [facility] [place] [address] Jan, [facility] [address] [id number] [facility] [place] [address] Jan, [facility] [address] [id number] [facility] [place] [address] Jan, [facility] [address] [id number] [address] [place] [address], [place] [address] Jan, [facility] [address] [id number] [facility] [place] [address] Jan, [facility] [address] [id number] [address] [place] [address], [place] [address] Jan, [facility] [address] [id number] [address] [place] [address], [place] [address] Jan, [facility] [address] [id number] [address] [place] [address], [place] [address] Jan, [facility] [address] [id number] [address] [place] [address], [place] [address] Jan, [facility] [address] [id number] [address] [place] [address], [place] [address] Jan, [facility] [address] [id number] [address] [place] [address], [place] [address] Jan, [facility] [address] [id number] [address] [place] [address], [place] [address] Jan, [facility] [address] [id number] [address] [place] [address], [place] [address] Jan, [facility] [address] [id number] [address] [place] [address], [place] [address] Jan, [facility] [address] [id number] [address] [place] [address], [place] [address] Dec, [facility] [address] [id number] [address] [place] [address] 13 Dec, 2013 [facility] [address] [id number] [address] [place] [address] Nov, [facility] [address] [id number] [address] [place] [address] Nov, [facility] [address] [id number] [address] [place] [address] Nov, [facility] [address] [id number] [address] [place] [address] Nov, [facility] [address] [id number] [address] [place] [address] Nov, [facility] [address] [id number] [address] [place] [address] Nov, [facility] [address] [id number] [address] [place] [address] Oct, [facility] [address] [id number] [address] [place] [address] Oct, [facility] [address] [id number] [address] [place] [address] Sep, [facility] [address] [id number] [address] [place] [address] 14 Sep, 2013 [facility] [address] [id number] [address] [place] [address] Sep, [facility] [address] [id number] [address] [place] [address] Sep, [facility] [address] [id number] [address] [place] [address] Aug, [facility] [address] [id number] [address] [place] [address] Aug, IMMUNIZATIONS No Known Immunizations SOCIAL HISTORY Never Assessed REASON FOR VISIT PLAN OF CARE VITAL SIGNS Height 69 in 2013-12-13 Weight 210.6 lbs 2013-12-13 Temperature 98.6 degrees Fahrenheit 2013-12-13 Heart Rate 88 bpm 2013-12-13 Respiratory Rate 18 2013-12-13 Blood pressure systolic 156 mmHg 2013-12-13 Blood pressure diastolic 90 mmHg 2013-12-13 MEDICATIONS Unknown Medications RESULTS No Results PROCEDURES [...] History Stroke Had poor equilibrium Was at [facility] 08/28/2013 Hospitalization History staph infection Hospitalization History Gout 06/05/16
--- OUTSIDE RECORDS SUMMARY | 2020-05-23 21:58 | XMS REPORT ---
Author Author Maurice Krause Organization [facility] Address [address] [place] [address] Care Team Providers Care Manager [employer] Name Role Phone LASHAUN Krause Unavailable PROBLEMS Type Condition ICD9-CM Code [id number] Code Onset Dates Condition S tatus SNOMED Code Problem Hyperlipidemia E78.5 Active 14029 004 Problem COPD (chronic obstructive pulmonary disease) J44.9 Active 71478195 Problem Hypertension I10 Active 0797540 3 Problem Shortness of breath R06.02 Active 849688220 Problem History of CVA (cerebrovascular accident) Z86.73 Active 261048154 ALLERGIES No Information ENCOUNTERS Encounter Location Date Diagnosis [place] [address] [place] [id number] [address] [place] [address] May, [facility] [address] [place] [address] May, Acute idiopathic gout, unspe cified site M10.00 and Dehydration E86.0 [facility] [address] [place] [id number] [address] [place] [address] May, Swelling of right knee joint M25.461 and Right ankle swelling M25.471 [facility] [address] [place] [id number] [address] [place] [address] Apr, Ankle swelling, right M25.47 1 [facility] [address] [place] [address] Apr, [place] [id number] [address] [place] [address] Feb, Establishing care with nick guzman, encounter for Z71.89 ; COPD (chronic obstructive pulmonary disease) J44.9 ; History of CVA (cerebrovascular accident) Z86.73 ; Hypertension I10 and Hyperlipidemia E78.5 [place] [address] [facility] [id number] [address] [place] [address] Oct, Shortness of breath R06.02 [facility] [address] [facility] [id number] [address] [place] [address] Oct, Hyperlipidemia E78.5 [place] [address] [place] [id number] [place] [address] Oct, Shortness of breath R06.02 [place] [address] [place] [id number] [address] [place] [address] Oct, Other and unspecified hyperl ipidemia 272.4 [place] [address] [place] [id number] [place] [address] Oct, Hypertension I10 ; Hyperlipi demia E78.5 and Shortness of breath R06.02 [place] [address] [place] [id number] [address] [place] [address] Jul, Other and unspecified hyperl ipidemia 272.4 [place] [address] [place] [id number] [place] [address] Jul, Essential hypertension, carl gnant 401.0 and Other and unspecified hyperlipidemia 272.4 [place] [address] [place] [id number] [address] [place] [address] May, [place] [address] [place] [id number] [address] [place] [address] May, Essential hypertension, carl gnant 401.0 and Other and unspecified hyperlipidemia 272.4 [place] [address] [place] [id number] [address] [place] [address] Apr, [place] [address] [facility] [id number] [address] [place] [address] Apr, Other and unspecified hyperl ipidemia 272.4 ; Essential hypertension, malignant 401.0 and Shortness of breath 786.05 [facility] [address] [id number] [address] [place] [address], [place] [address] 03 Apr, 2015 [facility] [address] [id number] [address] [place] [address], [place] [address] 14 Feb, 2015 [facility] [address] [id number] [address] [place] [address], [place] [address] 13 Feb, 2015 [facility] [address] [id number] [address] [place] [address], [place] [address] 21 Jan, 2015 [facility] [address] [id number] [address] [place] [address], [place] [address] Jan, [facility] [address] [id number] [address] [place] [address], [place] [address] Jan, [facility] [address] [id number] [address] [place] [address], [place] [address] Jan, [facility] [address] [id number] [address] [place] [address], [place] [address] 18 Jan, 2015 [facility] [address] [id number] [address] [place] [address], [place] [address] Jan, [facility] [address] [id number] [address] [place] [address], [place] [address] Jan, [facility] [address] [id number] [address] [place] [address], [place] [address] Jan, [facility] [address] [id number] [address] [place] [address] 05 Jan, 2015 [facility] [place] [facility] [address] [id number] [address] [place] [address], [place] [address] Jan, [facility] [place] [facility] [address] [id number] [address] [place] [address], [place] [address] Dec, [facility] [place] [facility] [address] [id number] [address] [place] [address] Dec, [facility] [address] [id number] [address] [place] [address] [place] [address] Sep, [facility] [place] [facility] [address] [id number] [address] [place] [address], [place] [address] Sep, [facility] [place] [facility] [address] [id number] [address] [place] [address], [place] [address] Sep, [facility] [place] [facility] [address] [id number] [address] [place] [address], [place] [address] Sep, [facility] [place] [facility] [address] [id number] [address] [place] [address], [place] [address] Sep, [facility] [place] [facility] [address] [id number] [address] [place] [address], [place] [address] Sep, [facility] [place] [facility] [address] [id number] [address] [place] [address], [place] [address] Aug, [facility] [place] [facility] [address] [id number] [address] [place] [address], [place] [address] Aug, [facility] [place] [facility] [address] [id number] [address] [place] [address], [place] [address] Aug, [facility] [place] [facility] [address] [id number] [address] [place] [address], [place] [address] Aug, [facility] [place] [facility] [address] [id number] [address] [place] [address], [place] [address] Jul, [facility] [place] [facility] [address] [id number] [address] [place] [address], [place] [address] Jul, [facility] [place] [facility] [address] [id number] [address] [place] [address], [place] [address] Jun, [facility] [place] [facility] [address] [id number] [address] [place] [address], [place] [address] Jun, [facility] [place] [facility] [address] [id number] [address] [place] [address], [place] [address] May, [facility] [place] [facility] [address] [id number] [address] [place] [address], [place] [address] May, [facility] [place] [facility] [address] [id number] [facility] [place] [address] May, [facility] [place] [facility] [address] [id number] [address] [place] [address], [place] [address] May, [facility] [place] [facility] [address] [id number] [address] [place] [address], [place] [address] Apr, [facility] [place] [facility] [address] [id number] [address] [place] [address], [place] [address] Apr, [facility] [place] [facility] [address] [id number] [address] [place] [address], [place] [address] Apr, [facility] [place] [facility] [address] [id number] [address] [place] [address], [place] [address] Apr, [facility] [address] [id number] [address] [place] [address], [place] [address] March, [facility] [place] [facility] [address] [id number] [address] [place] [address], [place] [address] March, [facility] [address] [id number] [address] [place] [address], [place] [address] Feb, [facility] [place] [facility] [address] [id number] [address] [place] [address], [place] [address] Feb, [facility] [address] [id number] [address] [place] [address], [place] [address] Feb, [facility] [place] [facility] [address] [id number] [address] [place] [address], [place] [address] Feb, [facility] [place] [facility] [address] [id number] [address] [place] [address], [place] [address] Feb, [facility] [place] [facility] [address] [id number] [address] [place] [address], [place] [address] Feb, [facility] [place] [facility] [address] [id number] [address] [place] [address], [place] [address] Feb, [facility] [place] [facility] [address] [id number] [address] [place] [address], [place] [address] Feb, [facility] [address] [id number] [facility] [place] [address] Jan, [facility] [place] [facility] [address] [id number] [facility] [place] [address] Jan, [facility] [address] [id number] [facility] [place] [address] Jan, [facility] [place] [facility] [address] [id number] [address] [place] [address], [place] [address] Jan, [facility] [address] [id number] [facility] [place] [address] Jan, [facility] [address] [id number] [address] [place] [address], [place] [address] Jan, [facility] [address] [id number] [address] [place] [address], [place] [address] Jan, [facility] [place] [facility] [address] [id number] [address] [place] [address], [place] [address] Jan, [facility] [address] [id number] [address] [place] [address], [place] [address] Jan, [facility] [place] [facility] [address] [id number] [address] [place] [address], [place] [address] Jan, [facility] [place] [facility] [address] [id number] [address] [place] [address], [place] [address] Jan, [facility] [place] [facility] [address] [id number] [address] [place] [address], [place] [address] Jan, [facility] [place] [facility] [address] [id number] [address] [place] [address], [place] [address] Jan, [facility] [place] [facility] [address] [id number] [address] [place] [address], [place] [address] Jan, [facility] [place] [facility] [address] [id number] [address] [place] [address], [place] [address] Dec, [facility] [place] [facility] [address] [id number] [address] [place] [address] 13 Dec, 2013 [facility] [address] [id number] [address] [place] [address] Nov, [facility] [address] [id number] [address] [place] [address] Nov, [facility] [address] [id number] [address] [place] [address] Nov, [facility] [address] [id number] [address] [place] [address] Nov, [facility] [address] [id number] [address] [place] [address] Nov, [facility] [address] [id number] [address] [place] [address] Nov, [facility] [address] [id number] [address] [place] [address] Oct, [facility] [address] [id number] [address] [place] [address] Oct, [facility] [address] [id number] [address] [place] [address] Sep, [facility] [address] [id number] [address] [place] [address] 14 Sep, 2013 [facility] [address] [id number] [address] [place] [address] Sep, [facility] [address] [id number] [address] [place] [address] Sep, [facility] [address] [id number] [address] [place] [address] Aug, [facility] [address] [id number] [address] [place] [address] Aug, IMMUNIZATIONS No Known Immunizations SOCIAL HISTORY [...] History Stroke Had poor equilibrium Was at [facility] 08/28/2013 Hospitalization History staph infection Hospitalization History Gout 06/05/16
--- OUTSIDE RECORDS SUMMARY | 2020-05-23 21:58 | XMS REPORT ---
Author Author Maurice Krause Organization [facility] Address [address] [place] [address] Care Team Providers Care Ur Coordinator Name Role Phone LASHAUN Krause Unavailable PROBLEMS Type Condition ICD9-CM Code [id number] Code Onset Dates Condition S tatus SNOMED Code Problem Hyperlipidemia E78.5 Active 78541 004 Problem COPD (chronic obstructive pulmonary disease) J44.9 Active 22517338 Problem Hypertension I10 Active 5104716 3 Problem Shortness of breath R06.02 Active 156804461 Problem History of CVA (cerebrovascular accident) Z86.73 Active [id number] ALLERGIES No Information ENCOUNTERS Encounter Location Date Diagnosis [place] [address] [address] May, [address] [address] May, Acute idiopathic gout, unspecified site M10.00 and Dehydration E86.0 [facility] [address] [place] [id number] [address] [place] [address] May, Swelling of right knee joint M25.461 and Right ankle swelling M25.471 [facility] [address] [place], [place] [id number] [address] [place] [address] Apr, Ankle swelling, right M25.47 1 [place] [address] [address] Apr, [place] [address] [address] Feb, Establishing care with new doctor, samira gaxiola for Z71.89 ; COPD (chronic obstructive pulmonary disease) J44.9 ; History of CVA (cerebrovascular accident) Z86.73 ; Hypertension I10 and Hyperlipidemia E78.5 [facility] [address] [place] [id number] [place] [address] Oct, Shortness of breath R06.02 [facility] [address] [address] Oct, Hyperlipidemia E78.5 [facility] [address] [address] Oct, Shortness of breath R06.02 [facility] [address] [address] Oct, Other and unspecified hyperlipidemia 272 .4 [place] [address] [address] Oct, Hypertension I10 ; Hyperlipidemia E78.5 and Shortness of breath R06.02 [place] [address] [address] Jul, Other and unspecified hyperlipidemia 272 .4 [place] [address] [address] Jul, Essential hypertension, malignant 401.0 and Other and unspecified hyperlipidemia 272.4 [place] [address] [address] May, [facility] [address] [address] May, Essential hypertension, malignant 401.0 and Other and unspecified hyperlipidemia 272.4 [place] [address] [place] [id number] [place] [address] Apr, [place] [address] [address] Apr, Other and unspecified hyperlipidemia 272 .4 ; Essential hypertension, malignant 401.0 and Shortness of breath 786.05 [place] [address] [place] [id number] [place] [address] Apr, [place] [address] [address] 14 Feb, 2014 [facility] [place] [facility] [address] [facility] [id number] [facility] [place] [address] 13 Feb, 2015 [facility] [place] [facility] [address] [facility] [id number] [facility] [place] [address] 21 Jan, 2015 [facility] [place] [facility] [address] [id number] [facility] [place] [address] 21 Jan, 2015 [facility] [place] [facility] [address] [id number] [place] [address] 20 Jan, 2015 [facility] [place] [facility] [address] [facility] [id number] [place] [address] 20 Jan, 2015 [facility] [place] [facility] [address] [id number] [place] [address] 18 Jan, 2015 [facility] [place] [facility] [address] [id number] [facility] [place] [address] 18 Jan, 2015 [facility] [place] [facility] [address] [id number] [facility] [place] [address] 10 Jan, 2014 [facility] [place] [facility] [address] [id number] [facility] [place] [address] 10 Jan, 2015 [facility] [place] [facility] [address] [id number] [facility] [place] [address] 05 Jan, 2014 [facility] [place] [facility] [address] [id number] [place] [address] 05 Jan, 2014 [facility] [place] [facility] [address] [id number] [place] [address] 03 Dec, 2014 [facility] [place] [facility] [address] [facility] [id number] [facility] [place] [address] 03 Dec, 2014 [facility] [place] [facility] [address] [id number] [place] [address] 18 Sep, 2014 [facility] [place] [facility] [address] [id number] [facility] [place] [address] 18 Sep, 2014 [facility] [place] [facility] [address] [id number] [place] [address] Sep, [facility] [place] [facility] [address] [id number] [place] [address] Sep, [facility] [place] [facility] [address] [id number] [place] [address] Sep, [facility] [place] [facility] [address] [id number] [place] [address] Sep, [facility] [place] [facility] [address] [id number] [place] [address] Aug, [facility] [place] [facility] [address] [id number] [place] [address] Aug, [facility] [place] [facility] [address] [id number] [place] [address] Aug, [facility] [place] [facility] [address] [id number] [place] [address] Aug, [facility] [place] [facility] [address] [id number] [place] [address] Jul, [facility] [place] [facility] [address] [id number] [place] [address] Jul, [facility] [place] [facility] [address] [id number] [place] [address] Jun, [facility] [place] [facility] [address] [id number] [place] [address] Jun, [facility] [place] [facility] [address] [id number] [place] [address] May, [facility] [place] [facility] [address] [id number] [place] [address] May, [facility] [place] [facility] [address] [id number] [place] [address] May, [facility] [place] [facility] [address] [id number] [place] [address] May, [facility] [place] [facility] [address] [id number] [place] [address] Apr, [facility] [place] [facility] [address] [id number] [place] [address] Apr, [facility] [place] [facility] [address] [facility] [id number] [place] [address] Apr, [facility] [place] [facility] [address] [facility] [id number] [place] [address] Apr, [facility] [place] [facility] [address] [id number] [place] [address] March, [facility] [place] [facility] [address] [id number] [place] [address] March, [facility] [place] [facility] [address] [facility] [id number] [place] [address] Feb, [facility] [place] [facility] [address] [id number] [place] [address] Feb, [facility] [place] [facility] [address] [id number] [place] [address] Feb, [facility] [place] [facility] [address] [id number] [place] [address] Feb, [facility] [place] [facility] [address] [id number] [place] [address] Feb, [facility] [place] [facility] [address] [id number] [place] [address] Feb, [facility] [place] [facility] [address] [id number] [place] [address] Feb, [facility] [address] [id number] [place] [address] Feb, [facility] [address] [id number] [place] [address] Jan, [facility] [address] [id number] [place] [address] Jan, [facility] [address] [id number] [place] [address] Jan, [facility] [address] [id number] [place] [address] Jan, [facility] [address] [id number] [place] [address] Jan, [facility] [address] [facility] [id number] [place] [address] Jan, [facility] [address] [facility] [id number] [place] [address] Jan, [facility] [address] [id number] [place] [address] Jan, [facility] [address] [id number] [place] [address] Jan, [facility] [address] [facility] [id number] [place] [address] Jan, [facility] [address] [id number] [place] [address] Jan, [facility] [address] [id number] [place] [address] Jan, [facility] [address] [id number] [place] [address] Jan, [facility] [address] [id number] [place] [address] Jan, [facility] [address] [id number] [place] [address] Dec, [facility] [address] [id number] [place] [address] Dec, [facility] [address] [id number] [place] [address] Nov, [facility] [address] [facility] [id number] [place] [address] Nov, [facility] [address] [id number] [place] [address] Nov, [facility] [address] [id number] [place] [address] Nov, [facility] [address] [id number] [place] [address] Nov, [facility] [address] [id number] [place] [address] Nov, [facility] [address] [id number] [place] [address] Oct, [facility] [address] [id number] [place] [address] Oct, [facility] [id number] [place] [address] Sep, [facility] [id number] [place] [address] Sep, [facility] [id number] [place] [address] Sep, [facility] [id number] [place] [address] Sep, [facility] [address] [id number] [place] [address] Aug, [facility] [address] [id number] [place] [address] Aug, IMMUNIZATIONS No Known Immunizations SOCIAL HISTORY Never Assessed REASON FOR VISIT PLAN OF CARE VITAL SIGNS Height 69 in 2014-01-23 Weight 222.2 lbs 2014-01-23 Temperature 97 degrees Fahrenheit 2014-01-23 Heart Rate 78 bpm 2014-01-23 Respiratory Rate 20 2014-01-23 Blood pressure systolic 160 mmHg 2014-01-23 Blood pressure diastolic 88 mmHg 2014-01-23 MEDICATIONS Unknown Medications RESULTS No Results PROCEDURES [...] History Stroke Had poor equilibrium Was at [facility] 08/28/2013 Hospitalization History staph infection Hospitalization History Gout 06/05/16
--- OUTSIDE RECORDS SUMMARY | 2020-05-23 21:58 | XMS REPORT ---
Author Author Maurice Krause Organization [facility] Address [address] [place] [address] Care Team Providers Care Electrician Helper Name Role Phone LASHAUN Krause Unavailable PROBLEMS Type Condition ICD9-CM Code VZU81-PM Code Onset Dates Condition S tatus SNOMED Code Problem Hyperlipidemia E78.5 Active 28569 004 Problem COPD (chronic obstructive pulmonary disease) J44.9 Active 18387766 Problem Hypertension I10 Active 5451379 3 Problem Shortness of breath R06.02 Active 010416312 Problem History of CVA (cerebrovascular accident) Z86.73 Active 339933556 ALLERGIES No Information ENCOUNTERS Encounter Location Date Diagnosis [place] [address] [address] May, [address] [address] May, Acute idiopathic gout, unspecified site M10.00 and Dehydration E86.0 [facility] [address] [place] [id number] [address] [place] [address] May, Swelling of right knee joint M25.461 and Right ankle swelling M25.471 [facility] [address] [place], [place] [id number] [address] [place] [address] Apr, Ankle swelling, right M25.47 1 [place] [address] [address] Apr, [place] [address] [address] Feb, Establishing care with new doctor, samira gaxiola for Z71.89 ; COPD (chronic obstructive pulmonary disease) J44.9 ; History of CVA (cerebrovascular accident) Z86.73 ; Hypertension I10 and Hyperlipidemia E78.5 [facility] [address] [place] [id number] [place] [address] Oct, Shortness of breath R06.02 [facility] [address] [address] Oct, Hyperlipidemia E78.5 [facility] [address] [address] Oct, Shortness of breath R06.02 [facility] [address] [address] Oct, Other and unspecified hyperlipidemia 272 .4 [place] [address] [address] Oct, Hypertension I10 ; Hyperlipidemia E78.5 and Shortness of breath R06.02 [place] [address] [address] Jul, Other and unspecified hyperlipidemia 272 .4 [place] [address] [address] Jul, Essential hypertension, malignant 401.0 and Other and unspecified hyperlipidemia 272.4 [place] [address] [address] May, [facility] [address] [address] May, Essential hypertension, malignant 401.0 and Other and unspecified hyperlipidemia 272.4 [place] [address] [place] [address] [address] [place] [address] Apr, [place] [address] [address] Apr, Other and unspecified hyperlipidemia 272 .4 ; Essential hypertension, malignant 401.0 and Shortness of breath 786.05 [place] [address] [place] [id number] [place] [address] Apr, [place] [address] [address] 14 Feb, 2014 [facility] [place] [facility] [address] [facility] [id number] [place] [address] 13 Feb, 2015 [facility] [place] [facility] [address] [facility] [id number] [place] [address] 21 Jan, 2015 [facility] [place] [facility] [address] [id number] [place] [address] 21 Jan, 2015 [facility] [place] [facility] [address] [id number] [place] [address] 20 Jan, 2015 [facility] [place] [facility] [address] [facility] [id number] [place] [address] 20 Jan, 2015 [facility] [place] [facility] [address] [id number] [place] [address] 18 Jan, 2015 [facility] [place] [facility] [address] [id number] [place] [address] 18 Jan, 2015 [facility] [place] [facility] [address] [id number] [place] [address] 10 Jan, 2014 [facility] [place] [facility] [address] [id number] [place] [address] 10 Jan, 2015 [facility] [place] [facility] [address] [id number] [place] [address] 05 Jan, 2014 [facility] [place] [facility] [address] [id number] [place] [address] 05 Jan, 2014 [facility] [place] [facility] [address] [id number] [place] [address] 03 Dec, 2014 [facility] [place] [facility] [address] [facility] [id number] [place] [address] 03 Dec, 2014 [facility] [place] [facility] [address] [id number] [place] [address] 18 Sep, 2014 [facility] [place] [facility] [address] [id number] [place] [address] 18 Sep, 2014 [facility] [place] [facility] [address] [id number] [place] [address] Sep, [facility] [place] [facility] [address] [id number] [place] [address] Sep, [facility] [place] [facility] [address] [id number] [place] [address] Sep, [facility] [place] [facility] [address] [id number] [place] [address] Sep, [facility] [place] [facility] [address] [id number] [place] [address] Aug, [facility] [place] [facility] [address] [id number] [place] [address] Aug, [facility] [place] [facility] [address] [id number] [place] [address] Aug, [facility] [place] [facility] [address] [id number] [place] [address] Aug, [facility] [place] [facility] [address] [id number] [place] [address] Jul, [facility] [place] [facility] [address] [id number] [place] [address] Jul, [facility] [place] [facility] [address] [id number] [place] [address] Jun, [facility] [place] [facility] [address] [id number] [place] [address] Jun, [facility] [place] [facility] [address] [id number] [place] [address] May, [facility] [place] [facility] [address] [id number] [place] [address] May, [facility] [place] [facility] [address] [id number] [place] [address] May, [facility] [place] [facility] [address] [id number] [place] [address] May, [facility] [place] [facility] [address] [id number] [place] [address] Apr, [facility] [place] [facility] [address] [id number] [place] [address] Apr, [facility] [place] [facility] [address] [facility] [id number] [place] [address] Apr, [facility] [place] [facility] [address] [facility] [id number] [place] [address] Apr, [facility] [place] [facility] [address] [id number] [place] [address] March, [facility] [place] [facility] [address] [id number] [place] [address] March, [facility] [place] [facility] [address] [facility] [id number] [place] [address] Feb, [facility] [place] [facility] [address] [id number] [place] [address] Feb, [facility] [place] [facility] [address] [id number] [place] [address] Feb, [facility] [place] [facility] [address] [id number] [place] [address] Feb, [facility] [place] [facility] [address] [id number] [place] [address] Feb, [facility] [place] [facility] [address] [id number] [place] [address] Feb, [facility] [place] [facility] [address] [id number] [place] [address] Feb, [facility] [place] [facility] [address] [id number] [place] [address] Feb, [facility] [place] [facility] [address] [id number] [place] [address] Jan, [facility] [place] [facility] [address] [id number] [place] [address] Jan, [facility] [place] [facility] [address] [id number] [place] [address] Jan, [facility] [place] [facility] [address] [id number] [place] [address] Jan, [facility] [place] [facility] [address] [id number] [place] [address] Jan, [facility] [place] [facility] [address] [facility] [id number] [place] [address] Jan, [facility] [place] [facility] [address] [facility] [id number] [place] [address] Jan, [facility] [place] [facility] [address] [id number] [place] [address] Jan, [facility] [place] [facility] [address] [id number] [place] [address] Jan, [facility] [place] [facility] [address] [facility] [id number] [place] [address] Jan, [facility] [place] [facility] [address] [id number] [place] [address] Jan, [facility] [place] [facility] [address] [id number] [place] [address] Jan, [facility] [place] [facility] [address] [id number] [place] [address] Jan, [facility] [place] [facility] [address] [id number] [place] [address] Jan, [facility] [place] [facility] [address] [id number] [place] [address] Dec, [facility] [place] [facility] [address] [id number] [place] [address] Dec, [facility] [place] [facility] [address] [id number] [place] [address] Nov, [facility] [place] [facility] [address] [facility] [id number] [place] [address] Nov, [facility] [place] [facility] [address] [id number] [place] [address] Nov, [facility] [place] [facility] [address] [id number] [place] [address] Nov, [facility] [place] [facility] [address] [id number] [place] [address] Nov, [facility] [place] [facility] [address] [id number] [place] [address] Nov, [facility] [address] [place] [address] [id number] [place] [address] Oct, [facility] [address] [place] [address] [id number] [place] [address] Oct, [facility] [address] [place] [id number] [place] [address] Sep, [facility] [address] [place] [id number] [place] [address] Sep, [facility] [address] [address] Sep, [facility] [address] [place] [id number] [place] [address] Sep, [facility] [address] [place] [id number] [place] [address] Aug, [facility] [address] [place] [id number] [place] [address] Aug, IMMUNIZATIONS No Known Immunizations SOCIAL HISTORY [...] History Stroke Had poor equilibrium Was at [facility] 08/28/2013 Hospitalization History staph infection Hospitalization History Gout 06/05/16
--- OUTSIDE RECORDS SUMMARY | 2020-05-23 21:58 | XMS REPORT ---
Author Author Maurice Krause Organization [facility] Address [address] [place] [address] Care Team Providers Care Behavioral School Counselors Name Role Phone LASHAUN Krause Unavailable PROBLEMS Type Condition ICD9-CM Code FKO22-WA Code Onset Dates Condition S tatus SNOMED Code Problem Hyperlipidemia E78.5 Active 51732 004 Problem COPD (chronic obstructive pulmonary disease) J44.9 Active 46322297 Problem Hypertension I10 Active 1818669 3 Problem Shortness of breath R06.02 Active 496622568 Problem History of CVA (cerebrovascular accident) Z86.73 Active 088215885 ALLERGIES No Information ENCOUNTERS Encounter Location Date Diagnosis [place] [address] [address] May, [address] [address] May, Acute idiopathic gout, unspecified site M10.00 and Dehydration E86.0 [facility] [address] [place] [id number] [address] [place] [address] May, Swelling of right knee joint M25.461 and Right ankle swelling M25.471 [facility] [address] [place], [place] [id number] [address] [place] [address] Apr, Ankle swelling, right M25.47 1 [place] [address] [address] Apr, [place] [address] [address] Feb, Establishing care with new doctor, samira gaxiola for Z71.89 ; COPD (chronic obstructive pulmonary disease) J44.9 ; History of CVA (cerebrovascular accident) Z86.73 ; Hypertension I10 and Hyperlipidemia E78.5 [facility] [address] [place] [id number] [place] [address] Oct, Shortness of breath R06.02 [facility] [address] [address] Oct, Hyperlipidemia E78.5 [facility] [address] [address] Oct, Shortness of breath R06.02 [facility] [address] [address] Oct, Other and unspecified hyperlipidemia 272 .4 [place] [address] [address] Oct, Hypertension I10 ; Hyperlipidemia E78.5 and Shortness of breath R06.02 [place] [address] [address] Jul, Other and unspecified hyperlipidemia 272 .4 [place] [address] [address] Jul, Essential hypertension, malignant 401.0 and Other and unspecified hyperlipidemia 272.4 [place] [address] [address] May, [facility] [address] [address] May, Essential hypertension, malignant 401.0 and Other and unspecified hyperlipidemia 272.4 [place] [address] [place] [id number] [place] [address] Apr, [place] [address] [address] Apr, Other and unspecified hyperlipidemia 272 .4 ; Essential hypertension, malignant 401.0 and Shortness of breath 786.05 [place] [address] [place] [id number] [place] [address] Apr, [place] [address] [address] 14 Feb, 2014 [facility] [place] [facility] [address] [facility] [id number] [facility] [place] [address] 13 Feb, 2015 [facility] [place] [facility] [address] [facility] [id number] [facility] [place] [address] 21 Jan, 2015 [facility] [place] [facility] [address] [id number] [facility] [place] [address] 21 Jan, 2015 [facility] [place] [facility] [address] [id number] [place] [address] 20 Jan, 2015 [facility] [place] [facility] [address] [facility] [id number] [place] [address] 20 Jan, 2015 [facility] [place] [facility] [address] [id number] [place] [address] 18 Jan, 2015 [facility] [place] [facility] [address] [id number] [facility] [place] [address] 18 Jan, 2015 [facility] [place] [facility] [address] [id number] [facility] [place] [address] 10 Jan, 2014 [facility] [place] [facility] [address] [id number] [facility] [place] [address] 10 Jan, 2015 [facility] [place] [facility] [address] [id number] [facility] [place] [address] 05 Jan, 2014 [facility] [place] [facility] [address] [id number] [place] [address] 05 Jan, 2014 [facility] [place] [facility] [address] [id number] [place] [address] 03 Dec, 2014 [facility] [place] [facility] [address] [facility] [id number] [facility] [place] [address] 03 Dec, 2014 [facility] [place] [facility] [address] [id number] [place] [address] 18 Sep, 2014 [facility] [place] [facility] [address] [id number] [facility] [place] [address] 18 Sep, 2014 [facility] [place] [facility] [address] [id number] [place] [address] Sep, [facility] [place] [facility] [address] [id number] [place] [address] Sep, [facility] [place] [facility] [address] [id number] [place] [address] Sep, [facility] [place] [facility] [address] [id number] [place] [address] Sep, [facility] [place] [facility] [address] [id number] [place] [address] Aug, [facility] [place] [facility] [address] [id number] [place] [address] Aug, [facility] [place] [facility] [address] [id number] [place] [address] Aug, [facility] [place] [facility] [address] [id number] [place] [address] Aug, [facility] [place] [facility] [address] [id number] [place] [address] Jul, [facility] [place] [facility] [address] [id number] [place] [address] Jul, [facility] [place] [facility] [address] [id number] [place] [address] Jun, [facility] [place] [facility] [address] [id number] [place] [address] Jun, [facility] [place] [facility] [address] [id number] [place] [address] May, [facility] [place] [facility] [address] [id number] [place] [address] May, [facility] [place] [facility] [address] [id number] [place] [address] May, [facility] [place] [facility] [address] [id number] [place] [address] May, [facility] [place] [facility] [address] [id number] [place] [address] Apr, [facility] [place] [facility] [address] [id number] [place] [address] Apr, [facility] [place] [facility] [address] [facility] [id number] [place] [address] Apr, [facility] [place] [facility] [address] [facility] [id number] [place] [address] Apr, [facility] [place] [facility] [address] [id number] [place] [address] March, [facility] [place] [facility] [address] [id number] [place] [address] March, [facility] [place] [facility] [address] [facility] [id number] [place] [address] Feb, [facility] [place] [facility] [address] [id number] [place] [address] Feb, [facility] [place] [facility] [address] [id number] [place] [address] Feb, [facility] [place] [facility] [address] [id number] [place] [address] Feb, [facility] [place] [facility] [address] [id number] [place] [address] Feb, [facility] [place] [facility] [address] [id number] [place] [address] Feb, [facility] [place] [facility] [address] [id number] [place] [address] Feb, [facility] [place] [facility] [address] [id number] [place] [address] Feb, [facility] [place] [facility] [address] [id number] [place] [address] Jan, [facility] [place] [facility] [address] [id number] [place] [address] Jan, [facility] [place] [facility] [address] [id number] [place] [address] Jan, [facility] [place] [facility] [address] [id number] [place] [address] Jan, [facility] [place] [facility] [address] [id number] [place] [address] Jan, [facility] [place] [facility] [address] [facility] [id number] [place] [address] Jan, [facility] [place] [facility] [address] [facility] [id number] [place] [address] Jan, [facility] [place] [facility] [address] [id number] [place] [address] Jan, [facility] [place] [facility] [address] [id number] [place] [address] Jan, [facility] [place] [facility] [address] [facility] [id number] [place] [address] Jan, [facility] [place] [facility] [address] [id number] [place] [address] Jan, [facility] [place] [facility] [address] [id number] [place] [address] Jan, [facility] [place] [facility] [address] [id number] [place] [address] Jan, [facility] [place] [facility] [address] [id number] [place] [address] Jan, [facility] [place] [facility] [address] [id number] [place] [address] Dec, [facility] [place] [facility] [address] [id number] [place] [address] Dec, [facility] [place] [facility] [address] [id number] [place] [address] Nov, [facility] [place] [facility] [address] [facility] [id number] [place] [address] Nov, [facility] [place] [facility] [address] [id number] [place] [address] Nov, [facility] [place] [facility] [address] [id number] [place] [address] Nov, [facility] [place] [facility] [address] [id number] [place] [address] Nov, [facility] [place] [facility] [address] [id number] [place] [address] 15 Nov, 2013 [facility] [address] [id number] [place] [address] Oct, [facility] [address] [id number] [place] [address] Oct, [facility] [id number] [place] [address] Sep, [facility] [id number] [place] [address] Sep, [facility] [id number] [place] [address] Sep, [facility] [id number] [place] [address] Sep, [facility] [id number] [place] [address] Aug, [facility] [id number] [place] [address] Aug, IMMUNIZATIONS No Known Immunizations SOCIAL HISTORY Never Assessed REASON FOR VISIT PLAN OF CARE VITAL SIGNS Blood pressure systolic 142 mmHg 2014-01-28 Blood pressure diastolic 90 mmHg 2014-01-28 MEDICATIONS Unknown Medications RESULTS No Results PROCEDURES [...]
--- OUTSIDE RECORDS SUMMARY | 2020-05-23 21:59 | XMS REPORT ---
Author Author Maurice Krause Organization [facility] Address [address] [place] [address] Care Team Providers Care Padder Cushion Name Role Phone LASHAUN Krause Unavailable PROBLEMS Type Condition ICD9-CM Code YBV35-NQ Code Onset Dates Condition S tatus SNOMED Code Problem Hyperlipidemia E78.5 Active 99519 004 Problem COPD (chronic obstructive pulmonary disease) J44.9 Active 23246948 Problem Hypertension I10 Active 1965418 3 Problem Shortness of breath R06.02 Active 948215349 Problem History of CVA (cerebrovascular accident) Z86.73 Active 498202641 ALLERGIES No Information ENCOUNTERS Encounter Location Date Diagnosis [place] [address] [address] May, [address] [address] May, Acute idiopathic gout, unspecified site M10.00 and Dehydration E86.0 [facility] [address] [place] [id number] [address] [place] [address] May, Swelling of right knee joint M25.461 and Right ankle swelling M25.471 [facility] [address] [place], [place] [id number] [address] [place] [address] Apr, Ankle swelling, right M25.47 1 [place] [address] [address] Apr, [place] [address] [address] Feb, Establishing care with new doctor, samira gaxiola for Z71.89 ; COPD (chronic obstructive pulmonary disease) J44.9 ; History of CVA (cerebrovascular accident) Z86.73 ; Hypertension I10 and Hyperlipidemia E78.5 [facility] [address] [place] [id number] [place] [address] Oct, Shortness of breath R06.02 [facility] [address] [address] Oct, Hyperlipidemia E78.5 [facility] [address] [address] Oct, Shortness of breath R06.02 [facility] [address] [address] Oct, Other and unspecified hyperlipidemia 272 .4 [place] [address] [address] Oct, Hypertension I10 ; Hyperlipidemia E78.5 and Shortness of breath R06.02 [place] [address] [address] Jul, Other and unspecified hyperlipidemia 272 .4 [place] [address] [address] Jul, Essential hypertension, malignant 401.0 and Other and unspecified hyperlipidemia 272.4 [place] [address] [address] May, [facility] [address] [address] May, Essential hypertension, malignant 401.0 and Other and unspecified hyperlipidemia 272.4 [place] [address] [id number] [place] [address] Apr, [place] [address] [address] Apr, Other and unspecified hyperlipidemia 272 .4 ; Essential hypertension, malignant 401.0 and Shortness of breath 786.05 [place] [address] [place] [id number] [place] [address] Apr, [place] [address] [address] 14 Feb, 2014 [facility] [place] [facility] [address] [facility] [id number] [facility] [place] [address] 13 Feb, 2015 [facility] [place] [facility] [address] [facility] [id number] [facility] [place] [address] 21 Jan, 2015 [facility] [place] [facility] [address] [id number] [facility] [place] [address] 21 Jan, 2015 [facility] [place] [facility] [address] [id number] [place] [address] 20 Jan, 2015 [facility] [place] [facility] [address] [facility] [id number] [place] [address] 20 Jan, 2015 [facility] [place] [facility] [address] [id number] [place] [address] 18 Jan, 2015 [facility] [place] [facility] [address] [id number] [facility] [place] [address] 18 Jan, 2015 [facility] [place] [facility] [address] [id number] [facility] [place] [address] 10 Jan, 2014 [facility] [place] [facility] [address] [id number] [facility] [place] [address] 10 Jan, 2015 [facility] [place] [facility] [address] [id number] [facility] [place] [address] 05 Jan, 2014 [facility] [place] [facility] [address] [id number] [place] [address] 05 Jan, 2014 [facility] [place] [facility] [address] [id number] [place] [address] 03 Dec, 2014 [facility] [place] [facility] [address] [facility] [id number] [facility] [place] [address] 03 Dec, 2014 [facility] [place] [facility] [address] [id number] [place] [address] 18 Sep, 2014 [facility] [place] [facility] [address] [id number] [facility] [place] [address] 18 Sep, 2014 [facility] [place] [facility] [address] [id number] [place] [address] Sep, [facility] [place] [facility] [address] [id number] [place] [address] Sep, [facility] [place] [facility] [address] [id number] [place] [address] Sep, [facility] [place] [facility] [address] [id number] [place] [address] Sep, [facility] [place] [facility] [address] [id number] [place] [address] Aug, [facility] [place] [facility] [address] [id number] [place] [address] Aug, [facility] [place] [facility] [address] [id number] [place] [address] Aug, [facility] [place] [facility] [address] [id number] [place] [address] Aug, [facility] [place] [facility] [address] [id number] [place] [address] Jul, [facility] [place] [facility] [address] [id number] [place] [address] Jul, [facility] [place] [facility] [address] [id number] [place] [address] Jun, [facility] [place] [facility] [address] [id number] [place] [address] Jun, [facility] [place] [facility] [address] [id number] [place] [address] May, [facility] [place] [facility] [address] [id number] [place] [address] May, [facility] [place] [facility] [address] [id number] [place] [address] May, [facility] [place] [facility] [address] [id number] [place] [address] May, [facility] [place] [facility] [address] [id number] [place] [address] Apr, [facility] [place] [facility] [address] [id number] [place] [address] Apr, [facility] [place] [facility] [address] [facility] [id number] [place] [address] Apr, [facility] [place] [facility] [address] [facility] [id number] [place] [address] Apr, [facility] [place] [facility] [address] [id number] [place] [address] March, [facility] [place] [facility] [address] [id number] [place] [address] March, [facility] [place] [facility] [address] [facility] [id number] [place] [address] Feb, [facility] [place] [facility] [address] [id number] [place] [address] Feb, [facility] [place] [facility] [address] [id number] [place] [address] Feb, [facility] [place] [facility] [address] [id number] [place] [address] Feb, [facility] [place] [facility] [address] [id number] [place] [address] Feb, [facility] [place] [facility] [address] [id number] [place] [address] Feb, [facility] [place] [facility] [address] [id number] [place] [address] Feb, [facility] [place] [facility] [address] [id number] [place] [address] Feb, [facility] [place] [facility] [address] [id number] [place] [address] Jan, [facility] [place] [facility] [address] [id number] [place] [address] Jan, [facility] [place] [facility] [address] [id number] [place] [address] Jan, [facility] [place] [facility] [address] [id number] [place] [address] Jan, [facility] [place] [facility] [address] [id number] [place] [address] Jan, [facility] [place] [facility] [address] [facility] [id number] [place] [address] Jan, [facility] [place] [facility] [address] [facility] [id number] [place] [address] Jan, [facility] [place] [facility] [address] [id number] [place] [address] Jan, [facility] [place] [facility] [address] [id number] [place] [address] Jan, [facility] [place] [facility] [address] [facility] [id number] [place] [address] Jan, [facility] [place] [facility] [address] [id number] [place] [address] Jan, [facility] [place] [facility] [address] [id number] [place] [address] Jan, [facility] [place] [facility] [address] [id number] [place] [address] Jan, [facility] [place] [facility] [address] [id number] [place] [address] Jan, [facility] [place] [facility] [address] [id number] [place] [address] Dec, [facility] [place] [facility] [address] [id number] [place] [address] Dec, [facility] [place] [facility] [address] [id number] [place] [address] Nov, [facility] [place] [facility] [address] [facility] [id number] [place] [address] Nov, [facility] [place] [facility] [address] [id number] [place] [address] Nov, [facility] [place] [facility] [address] [id number] [place] [address] Nov, [facility] [place] [facility] [address] [id number] [place] [address] Nov, [facility] [place] [facility] [address] [id number] [place] [address] Nov, [facility] [address] [id number] [place] [address] Oct, [facility] [address] [id number] [place] [address] Oct, [facility] [address] [place] [id number] [place] [address] Sep, [facility] [address] [place] [address] [id number] [place] [address] Sep, [facility] [address] [place] [id number] [place] [address] Sep, [facility] [address] [place] [id number] [place] [address] Sep, [facility] [address] [place] [id number] [place] [address] Aug, [facility] [address] [place] [id number] [place] [address] Aug, IMMUNIZATIONS No Known Immunizations SOCIAL HISTORY Never Assessed REASON FOR VISIT PLAN OF CARE VITAL SIGNS Blood pressure systolic 126 mmHg 2014-02-19 Blood pressure diastolic 90 mmHg 2014-02-19 MEDICATIONS Unknown Medications RESULTS No Results PROCEDURES Procedure Date Ordered Result Body Site BLOOD PRESSURE, MEASURED February 19, 2014 INSTRUCTIONS MEDICATIONS ADMINISTERED No Known Medications MEDICAL (GENERAL) HISTORY Type Description Date Medical History Stroke 08/2013 Medical History Hypertension Medical History Hyperlipidemia Medical History whooping cough as a child Medical History rheumatic fever as a child Medical History echocardiogram--10/2015--Dr. Daniel Ibarra--Normal repeat in 5 years Medical History Gout Hospitalization History Stroke Had poor equilibrium Was at [facility] 08/28/2013 Hospitalization History staph infection Hospitalization History Gout 06/05/16
--- OUTSIDE RECORDS SUMMARY | 2020-05-23 21:59 | XMS REPORT ---
Author Author Maurice Krause Organization [facility] Address [address] [place] [address] Care Team Providers Care Oil Heater Installer Name Role Phone LASHAUN Krause Unavailable PROBLEMS Type Condition ICD9-CM Code JNE25-DB Code Onset Dates Condition S tatus SNOMED Code Problem Hyperlipidemia E78.5 Active 66339 004 Problem COPD (chronic obstructive pulmonary disease) J44.9 Active 41606710 Problem Hypertension I10 Active 3601547 3 Problem Shortness of breath R06.02 Active 453396696 Problem History of CVA (cerebrovascular accident) Z86.73 Active 564869559 ALLERGIES No Information ENCOUNTERS Encounter Location Date Diagnosis [place] [address] [address] May, [address] [address] May, Acute idiopathic gout, unspecified site M10.00 and Dehydration E86.0 [facility] [address] [place] [id number] [address] [place] [address] May, Swelling of right knee joint M25.461 and Right ankle swelling M25.471 [facility] [address] [place], [place] [id number] [address] [place] [address] Apr, Ankle swelling, right M25.47 1 [place] [address] [address] Apr, [place] [address] [address] Feb, Establishing care with new doctor, samira gaxiola for Z71.89 ; COPD (chronic obstructive pulmonary disease) J44.9 ; History of CVA (cerebrovascular accident) Z86.73 ; Hypertension I10 and Hyperlipidemia E78.5 [facility] [address] [place] [id number] [place] [address] Oct, Shortness of breath R06.02 [facility] [address] [address] Oct, Hyperlipidemia E78.5 [facility] [address] [address] Oct, Shortness of breath R06.02 [facility] [address] [address] Oct, Other and unspecified hyperlipidemia 272 .4 [place] [address] [address] Oct, Hypertension I10 ; Hyperlipidemia E78.5 and Shortness of breath R06.02 [place] [address] [address] Jul, Other and unspecified hyperlipidemia 272 .4 [place] [address] [address] Jul, Essential hypertension, malignant 401.0 and Other and unspecified hyperlipidemia 272.4 [place] [address] [address] May, [facility] [address] [address] May, Essential hypertension, malignant 401.0 and Other and unspecified hyperlipidemia 272.4 [place] [address] [place] [id number] [place] [address] Apr, [place] [address] [address] Apr, Other and unspecified hyperlipidemia 272 .4 ; Essential hypertension, malignant 401.0 and Shortness of breath 786.05 [place] [address] [id number] [place] [address] Apr, [place] [address] [address] 14 Feb, 2014 [facility] [place] [facility] [address] [facility] [id number] [facility] [address] 13 Feb, 2015 [facility] [place] [facility] [address] [facility] [id number] [facility] [address] 21 Jan, 2015 [facility] [place] [facility] [address] [id number] [facility] [address] 21 Jan, 2015 [facility] [place] [facility] [address] [id number] [place] [address] 20 Jan, 2015 [facility] [place] [facility] [address] [facility] [id number] [place] [address] 20 Jan, 2015 [facility] [place] [facility] [address] [id number] [place] [address] 18 Jan, 2015 [facility] [place] [facility] [address] [id number] [facility] [address] 18 Jan, 2015 [facility] [place] [facility] [address] [id number] [facility] [address] 10 Jan, 2014 [facility] [place] [facility] [address] [id number] [facility] [address] 10 Jan, 2015 [facility] [place] [facility] [address] [id number] [facility] [address] 05 Jan, 2014 [facility] [place] [facility] [address] [id number] [place] [address] 05 Jan, 2014 [facility] [place] [facility] [address] [id number] [place] [address] 03 Dec, 2014 [facility] [place] [facility] [address] [facility] [id number] [facility] [address] 03 Dec, 2014 [facility] [place] [facility] [address] [id number] [place] [address] 18 Sep, 2014 [facility] [place] [facility] [address] [id number] [place] [address] 18 Sep, 2014 [facility] [place] [facility] [address] [id number] [place] [address] Sep, [facility] [place] [facility] [address] [id number] [place] [address] Sep, [facility] [place] [facility] [address] [id number] [place] [address] Sep, [facility] [place] [facility] [address] [id number] [place] [address] Sep, [facility] [place] [facility] [address] [id number] [place] [address] Aug, [facility] [place] [facility] [address] [id number] [place] [address] Aug, [facility] [place] [facility] [address] [id number] [place] [address] Aug, [facility] [place] [facility] [address] [id number] [place] [address] Aug, [facility] [place] [facility] [address] [id number] [place] [address] Jul, [facility] [place] [facility] [address] [id number] [place] [address] Jul, [facility] [place] [facility] [address] [id number] [place] [address] Jun, [facility] [place] [facility] [address] [id number] [place] [address] Jun, [facility] [place] [facility] [address] [id number] [place] [address] May, [facility] [place] [facility] [address] [id number] [place] [address] May, [facility] [place] [facility] [address] [id number] [place] [address] May, [facility] [place] [facility] [address] [id number] [place] [address] May, [facility] [place] [facility] [address] [id number] [place] [address] Apr, [facility] [place] [facility] [address] [id number] [place] [address] Apr, [facility] [place] [facility] [address] [facility] [id number] [place] [address] Apr, [facility] [place] [facility] [address] [facility] [id number] [place] [address] Apr, [facility] [place] [facility] [address] [id number] [place] [address] March, [facility] [place] [facility] [address] [id number] [place] [address] March, [facility] [place] [facility] [address] [facility] [id number] [place] [address] Feb, [facility] [place] [facility] [address] [id number] [place] [address] Feb, [facility] [place] [facility] [address] [id number] [place] [address] Feb, [facility] [place] [facility] [address] [id number] [place] [address] Feb, [facility] [place] [facility] [address] [id number] [place] [address] Feb, [facility] [place] [facility] [address] [id number] [place] [address] Feb, [facility] [place] [facility] [address] [id number] [place] [address] Feb, [facility] [place] [facility] [address] [id number] [place] [address] Feb, [facility] [place] [facility] [address] [id number] [place] [address] Jan, [facility] [place] [facility] [address] [id number] [place] [address] Jan, [facility] [place] [facility] [address] [id number] [place] [address] Jan, [facility] [place] [facility] [address] [id number] [place] [address] Jan, [facility] [place] [facility] [address] [id number] [place] [address] Jan, [facility] [place] [facility] [address] [facility] [id number] [place] [address] Jan, [facility] [place] [facility] [address] [facility] [id number] [place] [address] Jan, [facility] [place] [facility] [address] [id number] [place] [address] Jan, [facility] [place] [facility] [address] [id number] [place] [address] Jan, [facility] [place] [facility] [address] [facility] [id number] [place] [address] Jan, [facility] [place] [facility] [address] [id number] [place] [address] Jan, [facility] [place] [facility] [address] [id number] [place] [address] Jan, [facility] [place] [facility] [address] [id number] [place] [address] Jan, [facility] [place] [facility] [address] [id number] [place] [address] Jan, [facility] [place] [address] [id number] [place] [address] Dec, [facility] [place] [address] [id number] [place] [address] Dec, [facility] [place] [address] [id number] [place] [address] Nov, [facility] [place] [facility] [address] [facility] [id number] [place] [address] Nov, [facility] [place] [facility] [address] [id number] [place] [address] Nov, [facility] [place] [address] [id number] [place] [address] Nov, [facility] [place] [address] [id number] [place] [address] Nov, [facility] [address] [id number] [place] [address] 15 Nov, 2013 [facility] [address] [id number] [place] [address] Oct, [facility] [address] [id number] [place] [address] Oct, [facility] [id number] [place] [address] 14 Sep, 2013 [facility] [id number] [place] [address] Sep, [facility] [id number] [place] [address] Sep, [facility] [id number] [place] [address] Sep, [facility] [address] [id number] [place] [address] Aug, [facility] [address] [id number] [place] [address] Aug, IMMUNIZATIONS No Known Immunizations SOCIAL HISTORY Never Assessed REASON FOR VISIT PLAN OF CARE VITAL SIGNS Heart Rate 70 bpm 2014-02-28 Blood pressure systolic 124 mmHg 2014-02-28 Blood pressure diastolic 90 mmHg 2014-02-28 MEDICATIONS Unknown Medications RESULTS No Results PROCEDURES Procedure Date Ordered Result Body Site BLOOD PRESSURE, MEASURED February 28, 2014 INSTRUCTIONS MEDICATIONS ADMINISTERED No Known Medications [...]
--- OUTSIDE RECORDS SUMMARY | 2020-05-23 21:59 | XMS REPORT ---
Author Author Maurice Krause Organization [facility] Address [address] [place] [address] Care Team Providers Care Janitor Name Role Phone LASHAUN Krause Unavailable PROBLEMS Type Condition ICD9-CM Code RWO16-MZ Code Onset Dates Condition S tatus SNOMED Code Problem Hyperlipidemia E78.5 Active 96303 004 Problem COPD (chronic obstructive pulmonary disease) J44.9 Active 76315660 Problem Hypertension I10 Active 3075518 3 Problem Shortness of breath R06.02 Active 249622675 Problem History of CVA (cerebrovascular accident) Z86.73 Active 703496745 ALLERGIES No Information ENCOUNTERS Encounter Location Date Diagnosis [place] [address] [address] May, [address] [address] May, Acute idiopathic gout, unspecified site M10.00 and Dehydration E86.0 [facility] [address] [place] [place] [id number] [address] [place] [address] May, Swelling of right knee joint M25.461 and Right ankle swelling M25.471 [facility] [address] [place], [place] [id number] [address] [place] [address] Apr, Ankle swelling, right M25.47 1 [place] [address] [address] Apr, [place] [address] [address] Feb, Establishing care with new doctor, samira gaxiola for Z71.89 ; COPD (chronic obstructive pulmonary disease) J44.9 ; History of CVA (cerebrovascular accident) Z86.73 ; Hypertension I10 and Hyperlipidemia E78.5 [facility] [address] [place] [address] [id number] [place] [address] Oct, Shortness of breath R06.02 [facility] [address] [address] Oct, Hyperlipidemia E78.5 [facility] [address] [address] Oct, Shortness of breath R06.02 [facility] [address] [address] Oct, Other and unspecified hyperlipidemia 272 .4 [place] [address] [address] Oct, Hypertension I10 ; Hyperlipidemia E78.5 and Shortness of breath R06.02 [place] [address] [address] Jul, Other and unspecified hyperlipidemia 272 .4 [place] [address] [address] Jul, Essential hypertension, malignant 401.0 and Other and unspecified hyperlipidemia 272.4 [place] [address] [address] May, [facility] [address] [address] May, Essential hypertension, malignant 401.0 and Other and unspecified hyperlipidemia 272.4 [place] [address] [place] [address] [id number] [place] [address] Apr, [place] [address] [address] Apr, Other and unspecified hyperlipidemia 272 .4 ; Essential hypertension, malignant 401.0 and Shortness of breath 786.05 [place] [address] [place] [address] [id number] [place] [address] Apr, [place] [address] [address] 14 Feb, 2014 [facility] [place] [facility] [address] [facility]NOTE 3] [id number] [facility] [place] [address] 13 Feb, 2015 [facility] [place] [facility] [address] [facility][NOTE 3] [id number] [facility] [place] [address] 21 Jan, 2015 [facility] [place] [facility] [address] [id number] [facility] [place] [address] 21 Jan, 2015 [facility] [place] [facility] [address] [id number] [place] [address] 20 Jan, 2015 [facility] [place] [facility] [address] [facility]NOTE 3] [id number] [place] [address] 20 Jan, 2015 [facility] [place] [facility] [address] [id number] [place] [address] 18 Jan, 2015 [facility] [place] [facility] [address] [id number] [facility] [place] [address] 18 Jan, 2015 [facility] [place] [facility] [address] [id number] [facility] [place] [address] 10 Jan, 2014 [facility] [place] [facility] [address] [id number] [facility] [place] [address] 10 Jan, 2015 [facility] [place] [facility] [address] [id number] [facility] [place] [address] 05 Jan, 2014 [facility] [place] [facility] [address] [id number] [place] [address] 05 Jan, 2014 [facility] [place] [facility] [address] [id number] [place] [address] 03 Dec, 2014 [facility] [place] [facility] [address] [facility]NOTE 3] [id number] [facility] [place] [address] 03 Dec, 2014 [facility] [place] [facility] [address] [id number] [place] [address] 18 Sep, 2014 [facility] [place] [facility] [address] [id number] [facility] [place] [address] 18 Sep, 2014 [facility] [place] [facility] [address] [id number] [place] [address] Sep, [facility] [place] [facility] [address] [id number] [place] [address] Sep, [facility] [place] [facility] [address] [id number] [place] [address] Sep, [facility] [place] [facility] [address] [id number] [place] [address] Sep, [facility] [place] [facility] [address] [id number] [place] [address] Aug, [facility] [place] [facility] [address] [id number] [place] [address] Aug, [facility] [place] [facility] [address] [id number] [place] [address] Aug, [facility] [place] [facility] [address] [id number] [place] [address] Aug, [facility] [place] [facility] [address] [id number] [place] [address] Jul, [facility] [place] [facility] [address] [id number] [place] [address] Jul, [facility] [place] [facility] [address] [id number] [place] [address] Jun, [facility] [place] [facility] [address] [id number] [place] [address] Jun, [facility] [place] [facility] [address] [id number] [place] [address] May, [facility] [place] [facility] [address] [id number] [place] [address] May, [facility] [place] [facility] [address] [id number] [place] [address] May, [facility] [place] [facility] [address] [id number] [place] [address] May, [facility] [place] [facility] [address] [id number] [place] [address] Apr, [facility] [place] [facility] [address] [id number] [place] [address] Apr, [facility] [place] [facility] [address] [facility][NOTE 3] [id number] [place] [address] Apr, [facility] [place] [facility] [address] [facility][NOTE 3] [id number] [place] [address] Apr, [facility] [place] [facility] [address] [id number] [place] [address] March, [facility] [place] [facility] [address] [id number] [place] [address] March, [facility] [place] [facility] [address] [facility][NOTE 3] [id number] [place] [address] Feb, [facility] [place] [facility] [address] [id number] [place] [address] Feb, [facility] [place] [facility] [address] [id number] [place] [address] Feb, [facility] [place] [facility] [address] [id number] [place] [address] Feb, [facility] [place] [facility] [address] [id number] [place] [address] Feb, [facility] [place] [facility] [address] [id number] [place] [address] Feb, [facility] [place] [facility] [address] [id number] [place] [address] Feb, [facility] [place] [facility] [address] [id number] [place] [address] Feb, [facility] [place] [facility] [address] [id number] [place] [address] Jan, [facility] [place] [facility] [address] [id number] [place] [address] Jan, [facility] [place] [facility] [address] [id number] [place] [address] Jan, [facility] [place] [facility] [address] [id number] [place] [address] Jan, [facility] [place] [facility] [address] [id number] [place] [address] Jan, [facility] [place] [facility] [address] [facility][NOTE 3] [id number] [place] [address] Jan, [facility] [place] [facility] [address] [facility][NOTE 3] [id number] [place] [address] Jan, [facility] [place] [facility] [address] [id number] [place] [address] Jan, [facility] [place] [facility] [address] [id number] [place] [address] Jan, [facility] [place] [facility] [address] [facility][NOTE 3] [id number] [place] [address] Jan, [facility] [place] [facility] [address] [id number] [place] [address] Jan, [facility] [place] [facility] [address] [id number] [place] [address] Jan, [facility] [place] [facility] [address] [id number] [place] [address] Jan, [facility] [place] [facility] [address] [id number] [place] [address] Jan, [facility] [place] [facility] [address] [id number] [place] [address] Dec, [facility] [place] [facility] [address] [id number] [place] [address] Dec, [facility] [place] [facility] [address] [id number] [place] [address] Nov, [facility] [place] [facility] [address] [facility][NOTE 3] [id number] [place] [address] Nov, [facility] [place] [facility] [address] [id number] [place] [address] Nov, [facility] [place] [facility] [address] [id number] [place] [address] Nov, [facility] [place] [facility] [address] [id number] [place] [address] Nov, [facility] [place] [facility] [address] [id number] [place] [address] 15 Nov, 2013 [facility] [address] [id number] [place] [address] Oct, [facility] [address] [id number] [place] [address] Oct, [facility] [address] [place] [id number] [place] [address] 14 Sep, 2013 [facility] [address] [place] [address] [id number] [place] [address] Sep, [facility] [address] [place] [address] [id number] [place] [address] Sep, [facility] [address] [place] [address] [id number] [place] [address] Sep, [facility] [address] [place] [address] [id number] [place] [address] Aug, [facility] [address] [place] [address] [id number] [place] [address] Aug, IMMUNIZATIONS No Known Immunizations SOCIAL HISTORY Never Assessed REASON FOR VISIT PLAN OF CARE VITAL SIGNS Blood pressure systolic 132 mmHg 2014-02-07 Blood pressure diastolic 90 mmHg 2014-02-07 MEDICATIONS Unknown Medications RESULTS No Results PROCEDURES Procedure Date Ordered Result Body Site BLOOD PRESSURE, MEASURED February 07, 2014 INSTRUCTIONS MEDICATIONS ADMINISTERED No Known Medications [...]
--- OUTSIDE RECORDS SUMMARY | 2020-05-23 21:59 | XMS REPORT ---
Author Author Maurice Krause Organization [facility] Address [address] [place] [address] Care Team Providers Care Scrap Burner Name Role Phone LASHAUN Krause Unavailable PROBLEMS Type Condition ICD9-CM Code EHG59-FG Code Onset Dates Condition S tatus SNOMED Code Problem Hyperlipidemia E78.5 Active 04329 004 Problem COPD (chronic obstructive pulmonary disease) J44.9 Active 89318625 Problem Hypertension I10 Active 0300721 3 Problem Shortness of breath R06.02 Active 172438656 Problem History of CVA (cerebrovascular accident) Z86.73 Active 202255213 ALLERGIES No Information ENCOUNTERS Encounter Location Date Diagnosis [place] [address] [address] May, [address] [address] May, Acute idiopathic gout, unspecified site M10.00 and Dehydration E86.0 [facility] [address] [address] [place] [id number] [address] [place] [address] May, Swelling of right knee joint M25.461 and Right ankle swelling M25.471 [facility] [address] [place], [place] [id number] [address] [place] [address] Apr, Ankle swelling, right M25.47 1 [place] [address] [address] Apr, [place] [address] [address] Feb, Establishing care with new doctor, samira gaxiola for Z71.89 ; COPD (chronic obstructive pulmonary disease) J44.9 ; History of CVA (cerebrovascular accident) Z86.73 ; Hypertension I10 and Hyperlipidemia E78.5 [facility] [address] [place] [id number] [place] [address] Oct, Shortness of breath R06.02 [facility] [address] [address] Oct, Hyperlipidemia E78.5 [facility] [address] [address] Oct, Shortness of breath R06.02 [facility] [address] [address] Oct, Other and unspecified hyperlipidemia 272 .4 [place] [address] [address] Oct, Hypertension I10 ; Hyperlipidemia E78.5 and Shortness of breath R06.02 [place] [address] [address] Jul, Other and unspecified hyperlipidemia 272 .4 [place] [address] [address] Jul, Essential hypertension, malignant 401.0 and Other and unspecified hyperlipidemia 272.4 [place] [address] [address] May, [facility] [address] [address] May, Essential hypertension, malignant 401.0 and Other and unspecified hyperlipidemia 272.4 [place] [address] [place] [id number] [place] [address] Apr, [place] [address] [address] Apr, Other and unspecified hyperlipidemia 272 .4 ; Essential hypertension, malignant 401.0 and Shortness of breath 786.05 [place] [address] [place] [id number] [place] [address] Apr, [place] [address] [address] 14 Feb, 2014 [facility] [place] [facility] [address] [facility] [id number] [place] [address] 13 Feb, 2015 [facility] [place] [facility] [address] [facility] [id number] [place] [address] 21 Jan, 2015 [facility] [place] [facility] [address] [id number] [place] [address] 21 Jan, 2015 [facility] [place] [facility] [address] [id number] [place] [address] 20 Jan, 2015 [facility] [place] [facility] [address] [facility] [id number] [place] [address] 20 Jan, 2015 [facility] [place] [facility] [address] [id number] [place] [address] 18 Jan, 2015 [facility] [place] [facility] [address] [id number] [place] [address] 18 Jan, 2015 [facility] [place] [facility] [address] [id number] [place] [address] 10 Jan, 2014 [facility] [place] [facility] [address] [id number] [place] [address] 10 Jan, 2015 [facility] [place] [facility] [address] [id number] [place] [address] 05 Jan, 2014 [facility] [place] [facility] [address] [id number] [place] [address] 05 Jan, 2014 [facility] [place] [facility] [address] [id number] [place] [address] 03 Dec, 2014 [facility] [place] [facility] [address] [facility] [id number] [place] [address] 03 Dec, 2014 [facility] [place] [facility] [address] [id number] [place] [address] 18 Sep, 2014 [facility] [place] [facility] [address] [id number] [place] [address] 18 Sep, 2014 [facility] [place] [facility] [address] [id number] [place] [address] Sep, [facility] [place] [facility] [address] [id number] [place] [address] Sep, [facility] [place] [facility] [address] [id number] [place] [address] Sep, [facility] [place] [facility] [address] [id number] [place] [address] Sep, [facility] [place] [facility] [address] [id number] [place] [address] Aug, [facility] [place] [facility] [address] [id number] [place] [address] Aug, [facility] [place] [facility] [address] [id number] [place] [address] Aug, [facility] [place] [facility] [address] [id number] [place] [address] Aug, [facility] [place] [facility] [address] [id number] [place] [address] Jul, [facility] [place] [facility] [address] [id number] [place] [address] Jul, [facility] [place] [facility] [address] [id number] [place] [address] Jun, [facility] [place] [facility] [address] [id number] [place] [address] Jun, [facility] [place] [facility] [address] [id number] [place] [address] May, [facility] [place] [facility] [address] [id number] [place] [address] May, [facility] [place] [facility] [address] [id number] [place] [address] May, [facility] [place] [facility] [address] [id number] [place] [address] May, [facility] [place] [facility] [address] [id number] [place] [address] Apr, [facility] [place] [facility] [address] [id number] [place] [address] Apr, [facility] [place] [facility] [address] [facility] [id number] [place] [address] Apr, [facility] [place] [facility] [address] [facility] [id number] [place] [address] Apr, [facility] [place] [facility] [address] [id number] [place] [address] March, [facility] [place] [facility] [address] [id number] [place] [address] March, [facility] [place] [facility] [address] [facility] [id number] [place] [address] Feb, [facility] [place] [facility] [address] [id number] [place] [address] Feb, [facility] [place] [facility] [address] [id number] [place] [address] Feb, [facility] [place] [facility] [address] [id number] [place] [address] Feb, [facility] [place] [facility] [address] [id number] [place] [address] Feb, [facility] [place] [facility] [address] [id number] [place] [address] Feb, [facility] [place] [facility] [address] [id number] [place] [address] Feb, [facility] [place] [facility] [address] [id number] [place] [address] Feb, [facility] [place] [facility] [address] [id number] [place] [address] Jan, [facility] [place] [facility] [address] [id number] [place] [address] Jan, [facility] [place] [facility] [address] [id number] [place] [address] Jan, [facility] [place] [facility] [address] [id number] [place] [address] Jan, [facility] [place] [facility] [address] [id number] [place] [address] Jan, [facility] [place] [facility] [address] [facility] [id number] [place] [address] Jan, [facility] [place] [facility] [address] [facility] [id number] [place] [address] Jan, [facility] [place] [facility] [address] [id number] [place] [address] Jan, [facility] [place] [facility] [address] [id number] [place] [address] Jan, [facility] [place] [facility] [address] [facility] [id number] [place] [address] Jan, [facility] [address] [id number] [place] [address] Jan, [facility] [address] [id number] [place] [address] Jan, [facility] [address] [id number] [place] [address] Jan, [facility] [address] [id number] [place] [address] Jan, [facility] [address] [id number] [place] [address] Dec, [facility] [address] [id number] [place] [address] Dec, [facility] [address] [id number] [place] [address] Nov, [facility] [address] [facility] [id number] [place] [address] Nov, [facility] [address] [id number] [place] [address] Nov, [facility] [address] [id number] [place] [address] Nov, [facility] [address] [id number] [place] [address] Nov, [facility] [address] [id number] [place] [address] Nov, [facility] [id number] [place] [address] Oct, [facility] [id number] [place] [address] Oct, [facility] [id number] [place] [address] Sep, [facility] [address] [id number] [place] [address] Sep, [facility] [address] [address] Sep, [facility] [id number] [place] [address] Sep, [facility] [id number] [place] [address] Aug, [facility] [id number] [place] [address] Aug, IMMUNIZATIONS No Known Immunizations SOCIAL HISTORY [...] History Stroke Had poor equilibrium Was at [facility] 08/28/2013 Hospitalization History staph infection Hospitalization History Gout 06/05/16
--- OUTSIDE RECORDS SUMMARY | 2020-05-23 21:59 | XMS REPORT ---
Author Author Maurice Krause Organization [facility] Address [address] [place] [address] Care Team Providers Care Social Media Director Name Role Phone LASHAUN Krause Unavailable PROBLEMS Type Condition ICD9-CM Code VVC41-VD Code Onset Dates Condition S tatus SNOMED Code Problem Hyperlipidemia E78.5 Active 23957 004 Problem COPD (chronic obstructive pulmonary disease) J44.9 Active 20891098 Problem Hypertension I10 Active 2485692 3 Problem Shortness of breath R06.02 Active 136263456 Problem History of CVA (cerebrovascular accident) Z86.73 Active [id number] ALLERGIES No Information ENCOUNTERS Encounter Location Date Diagnosis [place] [address] [address] May, [address] [address] May, Acute idiopathic gout, unspecified site M10.00 and Dehydration E86.0 [facility] [address] [place] [place] [id number] [address] [place] [address] May, Swelling of right knee joint M25.461 and Right ankle swelling M25.471 [facility] [address] [place], [place] [id number] [address] [place] [address] Apr, Ankle swelling, right M25.47 [address] [place] [address] [address] Apr, [place] [address] [address] Feb, Establishing care with new doctor, samira gaxiola for Z71.89 ; COPD (chronic obstructive pulmonary disease) J44.9 ; History of CVA (cerebrovascular accident) Z86.73 ; Hypertension I10 and Hyperlipidemia E78.5 [facility] [address] [place] [id number] [place] [address] Oct, Shortness of breath R06.02 [facility] [address] [address] Oct, Hyperlipidemia E78.5 [facility] [address] [address] Oct, Shortness of breath R06.02 [facility] [address] [address] Oct, Other and unspecified hyperlipidemia 272 .4 [place] [address] [address] Oct, Hypertension I10 ; Hyperlipidemia E78.5 and Shortness of breath R06.02 [place] [address] [address] Jul, Other and unspecified hyperlipidemia 272 .4 [place] [address] [address] Jul, Essential hypertension, malignant 401.0 and Other and unspecified hyperlipidemia 272.4 [place] [address] [address] May, [facility] [address] [address] May, Essential hypertension, malignant 401.0 and Other and unspecified hyperlipidemia 272.4 [place] [address] [place] [id number] [place] [address] Apr, [place] [address] [address] Apr, Other and unspecified hyperlipidemia 272 .4 ; Essential hypertension, malignant 401.0 and Shortness of breath 786.05 [place] [address] [place] [id number] [place] [address] Apr, [place] [address] [address] 14 Feb, 2014 [facility] [place] [facility] [address] [facility] [id number] [facility] [place] [address] 13 Feb, 2015 [facility] [place] [facility] [address] [facility] [id number] [facility] [place] [address] 21 Jan, 2015 [facility] [place] [facility] [address] [id number] [facility] [place] [address] 21 Jan, 2015 [facility] [place] [facility] [address] [id number] [place] [address] 20 Jan, 2015 [facility] [place] [facility] [address] [facility] [id number] [place] [address] 20 Jan, 2015 [facility] [place] [facility] [address] [id number] [place] [address] 18 Jan, 2015 [facility] [place] [facility] [address] [id number] [facility] [address] 18 Jan, 2015 [facility] [place] [facility] [address] [id number] [place] [address] 10 Jan, 2014 [facility] [place] [facility] [address] [id number] [facility] [address] 10 Jan, 2015 [facility] [place] [facility] [address] [id number] [place] [address] 05 Jan, 2014 [facility] [place] [facility] [address] [id number] [place] [address] 05 Jan, 2014 [facility] [place] [facility] [address] [id number] [place] [address] 03 Dec, 2014 [facility] [place] [facility] [address] [facility] [id number] [facility] [place] [address] 03 Dec, 2014 [facility] [place] [facility] [address] [id number] [place] [address] 18 Sep, 2014 [facility] [place] [facility] [address] [id number] [facility] [address] 18 Sep, 2014 [facility] [place] [facility] [address] [id number] [place] [address] Sep, [facility] [place] [facility] [address] [id number] [place] [address] Sep, [facility] [place] [facility] [address] [id number] [place] [address] Sep, [facility] [place] [facility] [address] [id number] [place] [address] Sep, [facility] [place] [facility] [address] [id number] [place] [address] Aug, [facility] [place] [facility] [address] [id number] [place] [address] Aug, [facility] [place] [facility] [address] [id number] [place] [address] Aug, [facility] [place] [facility] [address] [id number] [place] [address] Aug, [facility] [place] [facility] [address] [id number] [place] [address] Jul, [facility] [place] [facility] [address] [id number] [place] [address] Jul, [facility] [place] [facility] [address] [id number] [place] [address] Jun, [facility] [place] [facility] [address] [id number] [place] [address] Jun, [facility] [place] [facility] [address] [id number] [place] [address] May, [facility] [place] [facility] [address] [id number] [place] [address] May, [facility] [place] [facility] [address] [id number] [place] [address] May, [facility] [place] [facility] [address] [id number] [place] [address] May, [facility] [place] [facility] [address] [id number] [place] [address] Apr, [facility] [place] [facility] [address] [id number] [place] [address] Apr, [facility] [place] [facility] [address] [facility] [id number] [place] [address] Apr, [facility] [place] [facility] [address] [facility] [id number] [place] [address] Apr, [facility] [place] [facility] [address] [id number] [place] [address] March, [facility] [place] [facility] [address] [id number] [place] [address] March, [facility] [place] [facility] [address] [facility] [id number] [place] [address] Feb, [facility] [place] [facility] [address] [id number] [place] [address] Feb, [facility] [place] [facility] [address] [id number] [place] [address] Feb, [facility] [place] [facility] [address] [id number] [place] [address] Feb, [facility] [place] [facility] [address] [id number] [place] [address] Feb, [facility] [place] [facility] [address] [id number] [place] [address] Feb, [facility] [place] [facility] [address] [id number] [place] [address] Feb, [facility] [place] [facility] [address] [id number] [place] [address] Feb, [facility] [place] [facility] [address] [id number] [place] [address] Jan, [facility] [place] [facility] [address] [id number] [place] [address] Jan, [facility] [place] [facility] [address] [id number] [place] [address] Jan, [facility] [place] [facility] [address] [id number] [place] [address] Jan, [facility] [place] [facility] [address] [id number] [place] [address] Jan, [facility] [place] [facility] [address] [facility] [id number] [place] [address] Jan, [facility] [place] [facility] [address] [facility] [id number] [place] [address] Jan, [facility] [place] [facility] [address] [id number] [place] [address] Jan, [facility] [place] [facility] [address] [id number] [place] [address] Jan, [facility] [place] [facility] [address] [facility] [id number] [place] [address] Jan, [facility] [place] [facility] [address] [id number] [place] [address] Jan, [facility] [place] [facility] [address] [id number] [place] [address] Jan, [facility] [place] [facility] [address] [id number] [place] [address] Jan, [facility] [place] [facility] [address] [id number] [place] [address] Jan, [facility] [place] [facility] [address] [id number] [place] [address] Dec, [facility] [place] [facility] [address] [id number] [place] [address] Dec, [facility] [place] [facility] [address] [id number] [place] [address] Nov, [facility] [place] [facility] [address] [facility] [id number] [place] [address] Nov, [facility] [place] [facility] [address] [id number] [place] [address] Nov, [facility] [place] [facility] [address] [id number] [place] [address] Nov, [facility] [place] [facility] [address] [id number] [place] [address] Nov, [facility] [place] [facility] [address] [id number] [place] [address] Nov, [facility] [address] [place] [id number] [place] [address] Oct, [facility] [address] [place] [id number] [place] [address] Oct, [facility] [address] [place] [id number] [place] [address] Sep, [facility] [address] [place] [id number] [place] [address] Sep, [facility] [address] [address] Sep, [facility] [address] [place] [id number] [place] [address] Sep, [facility] [address] [place] [id number] [place] [address] Aug, [facility] [address] [place] [address] [id number] [place] [address] Aug, IMMUNIZATIONS No Known Immunizations SOCIAL HISTORY [...] History Stroke Had poor equilibrium Was at [facility] 08/28/2013 Hospitalization History staph infection Hospitalization History Gout 06/05/16
--- OUTSIDE RECORDS SUMMARY | 2020-05-23 21:59 | XMS REPORT ---
Author Author Maurice Velazquez Doctor Organization [facility] Address Unknown Phone Unavailable Care Team Providers Care In Flight Technician Name Role Phone Migration, Doctor Unavailable Unavailable PROBLEMS Type Condition ICD9-CM Code ERY41-XY Code Onset Dates Condition S tatus SNOMED Code Problem Hyperlipidemia E78.5 Active 32012 004 Problem COPD (chronic obstructive pulmonary disease) J44.9 Active 52854565 Problem Hypertension I10 Active 6824368 3 Problem Shortness of breath R06.02 Active 041019876 Problem History of CVA (cerebrovascular accident) Z86.73 Active [id number] ALLERGIES No Information ENCOUNTERS Encounter Location Date Diagnosis [address] [address] May, [address] [address] May, Acute idiopathic gout, unspecified site M10.00 and Dehydration E86.0 [facility] [address] [place] [address] May, Swelling of right knee joint M25.461 and Right ankle swelling M25.471 [facility] [address] [address] Apr, Ankle swelling, right M25.47 [address] [place] [address] [address] Apr, [address] [address] Feb, Establishing care with new doctorsamira for Z71.89 ; COPD (chronic obstructive pulmonary disease) J44.9 ; History of CVA (cerebrovascular accident) Z86.73 ; Hypertension I10 and Hyperlipidemia E78.[address] [address] Oct, Shortness of breath R06.02 [facility] [address] [address] Oct, Hyperlipidemia E78.5 [facility] [address] [address] Oct, Shortness of breath R06.02 [place] [address] [address] Oct, Other and unspecified hyperlipidemia 272 .4 [place] [address] [address] Oct, Hypertension I10 ; Hyperlipidemia E78.5 and Shortness of breath R06.02 [place] [address] [address] Jul, Other and unspecified hyperlipidemia 272 .4 [place] [address] [address] Jul, Essential hypertension, malignant 401.0 and Other and unspecified hyperlipidemia 272.4 [place] [address] [address] May, [place] [address] [address] May, Essential hypertension, malignant 401.0 and Other and unspecified hyperlipidemia 272.4 [place] [address] [address] Apr, [place] [address] [address] Apr, Other and unspecified hyperlipidemia 272 .4 ; Essential hypertension, malignant 401.0 and Shortness of breath 786.05 [place] [address] [address] Apr, [place] [address] [address] 14 Feb, 2015 [place] [address] [address] 13 Feb, 2015 [facility] [place] [facility] [address] [facility] [id number] [place] [address] Jan, [facility] [place] [facility] [address] [facility] [id number] [place] [address] Jan, [facility] [place] [facility] [address] [id number] [place] [address] Jan, [facility] [place] [facility] [address] [id number] [place] [address] 20 Jan, 2015 [facility] [place] [facility] [address] [facility] [id number] [place] [address] 18 Jan, 2015 [facility] [place] [facility] [address] [id number] [place] [address] 18 Jan, 2015 [facility] [place] [facility] [address] [id number] [place] [address] Jan, [facility] [place] [facility] [address] [id number] [place] [address] 10 Jan, 2015 [facility] [place] [facility] [address] [id number] [place] [address] Jan, [facility] [place] [facility] [address] [id number] [place] [address] 05 Jan, 2014 [facility] [place] [facility] [address] [id number] [place] [address] Dec, 2014 [facility] [place] [facility] [address] [id number] [place] [address] Dec, 2014 [facility] [place] [facility] [address] [id number] [place] [address] Sep, [facility] [place] [facility] [address] [id number] [place] [address] Sep, [facility] [place] [facility] [address] [id number] [place] [address] Sep, [facility] [place] [facility] [address] [id number] [place] [address] Sep, [facility] [place] [facility] [address] [id number] [place] [address] Sep, [facility] [place] [facility] [address] [facility] [id number] [place] [address] Sep, [facility] [place] [facility] [address] [id number] [place] [address] Aug, [facility] [place] [facility] [address] [id number] [place] [address] Aug, [facility] [place] [facility] [address] [id number] [place] [address] Aug, [facility] [place] [facility] [address] [id number] [place] [address] Aug, [facility] [place] [facility] [address] [id number] [place] [address] Jul, [facility] [place] [facility] [address] [id number] [place] [address] Jul, [facility] [place] [facility] [address] [id number] [place] [address] Jun, [facility] [place] [facility] [address] [id number] [place] [address] Jun, [facility] [place] [facility] [address] [id number] [place] [address] May, [facility] [place] [facility] [address] [id number] [place] [address] May, [facility] [place] [facility] [address] [id number] [place] [address] May, [facility] [place] [facility] [address] [id number] [place] [address] May, [facility] [place] [facility] [address] [id number] [place] [address] Apr, [facility] [place] [facility] [address] [id number] [place] [address] Apr, [facility] [place] [facility] [address] [id number] [place] [address] Apr, [facility] [place] [facility] [address] [facility] [id number] [place] [address] Apr, [facility] [place] [facility] [address] [facility] [id number] [place] [address] March, [facility] [place] [facility] [address] [facility] [id number] [place] [address] March, [facility] [place] [facility] [address] [id number] [place] [address] Feb, [facility] [place] [facility] [address] [facility] [id number] [place] [address] Feb, [facility] [place] [facility] [address] [id number] [place] [address] Feb, [facility] [place] [facility] [address] [id number] [place] [address] Feb, [facility] [place] [facility] [address] [id number] [place] [address] Feb, [facility] [place] [facility] [address] [id number] [place] [address] Feb, [facility] [place] [facility] [address] [id number] [place] [address] Feb, [facility] [place] [facility] [address] [id number] [place] [address] Feb, [facility] [place] [facility] [address] [id number] [place] [address] Jan, [facility] [place] [facility] [address] [id number] [place] [address] Jan, [facility] [place] [facility] [address] [facility] [id number] [place] [address] Jan, [facility] [place] [facility] [address] [id number] [place] [address] Jan, [facility] [place] [facility] [address] [id number] [place] [address] Jan, [facility] [place] [facility] [address] [id number] [place] [address] Jan, [facility] [place] [facility] [address] [id number] [place] [address] Jan, [facility] [place] [facility] [address] [id number] [facility] [place] [address] Jan, [facility] [place] [facility] [address] [id number] [place] [address] Jan, [facility] [place] [facility] [address] [id number] [place] [address] Jan, [facility] [place] [facility] [address] [id number] [place] [address] Jan, [facility] [place] [facility] [address] [id number] [place] [address] Jan, [facility] [place] [facility] [address] [id number] [place] [address] Jan, [facility] [place] [facility] [address] [id number] [place] [address] Jan, [facility] [place] [facility] [address] [id number] [place] [address] Dec, [facility] [place] [facility] [address] [id number] [place] [address] Dec, [facility] [place] [facility] [address] [id number] [place] [address] Nov, [facility] [place] [facility] [address] [id number] [place] [address] Nov, [facility] [place] [facility] [address] [id number] [place] [address] Nov, [facility] [place] [facility] [address] [id number] [place] [address] Nov, [facility] [place] [facility] [address] [id number] [place] [address] Nov, [facility] [place] [facility] [address] [id number] [place] [address] Nov, [facility] [address] [id number] [place] [address] Oct, [facility] [address] [id number] [place] [address] Oct, [facility] [id number] [place] [address] Sep, [facility] [id number] [place] [address] Sep, [facility] [id number] [place] [address] Sep, [facility] [id number] [place] [address] Sep, [facility] [id number] [place] [address] Aug, [facility] [id number] [place] [address] Aug, IMMUNIZATIONS No Known Immunizations SOCIAL HISTORY [...] Stroke Had poor equilibrium Was at [facility] 08/28/2013 Hospitalization History staph infection Hospitalization History Gout 06/05/16
--- OUTSIDE RECORDS SUMMARY | 2020-05-23 21:59 | XMS REPORT ---
Author Author Maurice Krause Organization [facility] Address [address] [place] [address] Care Team Providers Care Infrastructure Engineer Name Role Phone LASHAUN Krause Unavailable PROBLEMS Type Condition ICD9-CM Code PDA44-BB Code Onset Dates Condition S tatus SNOMED Code Problem Hyperlipidemia E78.5 Active 89673 004 Problem COPD (chronic obstructive pulmonary disease) J44.9 Active 27759323 Problem Hypertension I10 Active 4876991 3 Problem Shortness of breath R06.02 Active 658230804 Problem History of CVA (cerebrovascular accident) Z86.73 Active 628596830 ALLERGIES No Information ENCOUNTERS Encounter Location Date Diagnosis [place] [address] [address] May, [address] [address] May, Acute idiopathic gout, unspecified site M10.00 and Dehydration E86.0 [facility] [address] [place] [id number] [address] [place] [address] May, Swelling of right knee joint M25.461 and Right ankle swelling M25.471 [facility] [address] [place], [place] [id number] [address] [place] [address] Apr, Ankle swelling, right M25.47 1 [place] [address] [address] Apr, [place] [address] [address] Feb, Establishing care with new doctor, samira gaxiola for Z71.89 ; COPD (chronic obstructive pulmonary disease) J44.9 ; History of CVA (cerebrovascular accident) Z86.73 ; Hypertension I10 and Hyperlipidemia E78.5 [facility] [address] [place] [id number] [place] [address] Oct, Shortness of breath R06.02 [facility] [address] [address] Oct, Hyperlipidemia E78.5 [facility] [address] [address] Oct, Shortness of breath R06.02 [facility] [address] [address] Oct, Other and unspecified hyperlipidemia 272 .4 [place] [address] [address] Oct, Hypertension I10 ; Hyperlipidemia E78.5 and Shortness of breath R06.02 [place] [address] [address] Jul, Other and unspecified hyperlipidemia 272 .4 [place] [address] [address] Jul, Essential hypertension, malignant 401.0 and Other and unspecified hyperlipidemia 272.4 [place] [address] [address] May, [facility] [address] [address] May, Essential hypertension, malignant 401.0 and Other and unspecified hyperlipidemia 272.4 [place] [address] [place] [id number] [place] [address] Apr, [place] [address] [address] Apr, Other and unspecified hyperlipidemia 272 .4 ; Essential hypertension, malignant 401.0 and Shortness of breath 786.05 [place] [address] [place] [id number] [place] [address] Apr, [place] [address] [address] 14 Feb, 2014 [facility] [place] [facility] [address] [facility] [id number] [facility] [place] [address] 13 Feb, 2015 [facility] [place] [facility] [address] [facility] [id number] [facility] [place] [address] 21 Jan, 2015 [facility] [place] [facility] [address] [id number] [facility] [place] [address] 21 Jan, 2015 [facility] [place] [facility] [address] [id number] [place] [address] 20 Jan, 2015 [facility] [place] [facility] [address] [facility] [id number] [place] [address] 20 Jan, 2015 [facility] [place] [facility] [address] [id number] [place] [address] 18 Jan, 2015 [facility] [place] [facility] [address] [id number] [facility] [place] [address] 18 Jan, 2015 [facility] [place] [facility] [address] [id number] [facility] [place] [address] 10 Jan, 2014 [facility] [place] [facility] [address] [id number] [facility] [place] [address] 10 Jan, 2015 [facility] [place] [facility] [address] [id number] [facility] [place] [address] 05 Jan, 2014 [facility] [place] [facility] [address] [id number] [place] [address] 05 Jan, 2014 [facility] [place] [facility] [address] [id number] [place] [address] 03 Dec, 2014 [facility] [place] [facility] [address] [facility] [id number] [facility] [place] [address] 03 Dec, 2014 [facility] [place] [facility] [address] [id number] [place] [address] 18 Sep, 2014 [facility] [place] [facility] [address] [id number] [facility] [place] [address] 18 Sep, 2014 [facility] [place] [facility] [address] [id number] [place] [address] Sep, [facility] [place] [facility] [address] [id number] [place] [address] Sep, [facility] [place] [facility] [address] [id number] [place] [address] Sep, [facility] [place] [facility] [address] [id number] [place] [address] Sep, [facility] [place] [facility] [address] [id number] [place] [address] Aug, [facility] [place] [facility] [address] [id number] [place] [address] Aug, [facility] [place] [facility] [address] [id number] [place] [address] Aug, [facility] [place] [facility] [address] [id number] [place] [address] Aug, [facility] [place] [facility] [address] [id number] [place] [address] Jul, [facility] [place] [facility] [address] [id number] [place] [address] Jul, [facility] [place] [facility] [address] [id number] [place] [address] Jun, [facility] [place] [facility] [address] [id number] [place] [address] Jun, [facility] [place] [facility] [address] [id number] [place] [address] May, [facility] [place] [facility] [address] [id number] [place] [address] May, [facility] [place] [facility] [address] [id number] [place] [address] May, [facility] [place] [facility] [address] [id number] [place] [address] May, [facility] [place] [facility] [address] [id number] [place] [address] Apr, [facility] [place] [facility] [address] [id number] [place] [address] Apr, [facility] [place] [facility] [address] [facility] [id number] [place] [address] Apr, [facility] [place] [facility] [address] [facility] [id number] [place] [address] Apr, [facility] [place] [facility] [address] [id number] [place] [address] March, [facility] [place] [facility] [address] [id number] [place] [address] March, [facility] [place] [facility] [address] [facility] [id number] [place] [address] Feb, [facility] [place] [facility] [address] [id number] [place] [address] Feb, [facility] [place] [facility] [address] [id number] [place] [address] Feb, [facility] [place] [facility] [address] [id number] [place] [address] Feb, [facility] [place] [facility] [address] [id number] [place] [address] Feb, [facility] [place] [facility] [address] [id number] [place] [address] Feb, [facility] [place] [facility] [address] [id number] [place] [address] Feb, [facility] [place] [facility] [address] [id number] [place] [address] Feb, [facility] [place] [facility] [address] [id number] [place] [address] Jan, [facility] [place] [facility] [address] [id number] [place] [address] Jan, [facility] [place] [facility] [address] [id number] [place] [address] Jan, [facility] [place] [facility] [address] [id number] [place] [address] Jan, [facility] [place] [facility] [address] [id number] [place] [address] Jan, [facility] [place] [facility] [address] [facility] [id number] [place] [address] Jan, [facility] [place] [facility] [address] [facility] [id number] [place] [address] Jan, [facility] [place] [facility] [address] [id number] [place] [address] Jan, [facility] [place] [facility] [address] [id number] [place] [address] Jan, [facility] [place] [facility] [address] [facility] [id number] [place] [address] Jan, [facility] [place] [facility] [address] [id number] [place] [address] Jan, [facility] [place] [facility] [address] [id number] [place] [address] Jan, [facility] [place] [facility] [address] [id number] [place] [address] Jan, [facility] [place] [facility] [address] [id number] [place] [address] Jan, [facility] [place] [facility] [address] [id number] [place] [address] Dec, [facility] [place] [facility] [address] [id number] [place] [address] Dec, [facility] [place] [facility] [address] [id number] [place] [address] Nov, [facility] [place] [facility] [address] [facility] [id number] [place] [address] Nov, [facility] [place] [facility] [address] [id number] [place] [address] Nov, [facility] [place] [facility] [address] [id number] [place] [address] Nov, [facility] [place] [facility] [address] [id number] [place] [address] Nov, [facility] [place] [facility] [address] [id number] [place] [address] Nov, [facility] [address] [id number] [place] [address] Oct, [facility] [address] [id number] [place] [address] Oct, [facility] [address] [place] [id number] [place] [address] Sep, [facility] [address] [place] [id number] [place] [address] Sep, [facility] [address] [place] [id number] [place] [address] Sep, [facility] [address] [place] [id number] [place] [address] Sep, [facility] [address] [id number] [place] [address] Aug, [facility] [address] [id number] [place] [address] Aug, IMMUNIZATIONS No Known Immunizations SOCIAL HISTORY Never Assessed REASON FOR VISIT PLAN OF CARE VITAL SIGNS Height 69 in 2014-02-14 Weight 220.59 lbs 2014-02-14 Temperature 97.4 degrees Fahrenheit 2014-02-14 Heart Rate 76 bpm 2014-02-14 Respiratory Rate 16 2014-02-14 Blood pressure systolic 126 mmHg 2014-02-14 Blood pressure diastolic 90 mmHg 2014-02-14 MEDICATIONS Unknown Medications RESULTS No Results PROCEDURES [...] History Stroke Had poor equilibrium Was at [facility] 08/28/2013 Hospitalization History staph infection Hospitalization History Gout 06/05/16
--- OUTSIDE RECORDS SUMMARY | 2020-05-23 21:59 | XMS REPORT ---
Author Author Maurice Krause Organization [facility] Address [address] [place] [address] Care Team Providers Care At Risk Specialist Name Role Phone LASHAUN Krause Unavailable PROBLEMS Type Condition ICD9-CM Code MND82-CL Code Onset Dates Condition S tatus SNOMED Code Problem Shortness of breath R06.02 Active 108425141 Problem COPD (chronic obstructive pulmonary disease) J44.9 Active 10528673 Problem History of CVA (cerebrovascular accident) Z86.73 Active 829373192 Problem Hyperlipidemia E78.5 Active 41057 004 Problem Hypertension I10 Active 1001019 3 ALLERGIES No Information ENCOUNTERS Encounter Location Date Diagnosis [place] [address] [address] May, [address] [address] May, Acute idiopathic gout, unspecified site M10.00 and Dehydration E86.0 [facility] [address] [place], [place] [id number] [address] [place] [address] May, Swelling of right knee joint M25.461 and Right ankle swelling M25.471 [facility] [address] [place], [place] [id number] [address] [place] [address] Apr, Ankle swelling, right M25.47 1 [place] [address] [address] Apr, [place] [address] [address] Feb, Establishing care with new doctor, samira gaxiola for Z71.89 ; COPD (chronic obstructive pulmonary disease) J44.9 ; History of CVA (cerebrovascular accident) Z86.73 ; Hypertension I10 and Hyperlipidemia E78.5 [facility] [address] [place] [id number] [place] [address] Oct, Shortness of breath R06.02 [facility] [address] [address] Oct, Hyperlipidemia E78.5 [facility] [address] [address] Oct, Shortness of breath R06.02 [facility] [address] [address] Oct, Other and unspecified hyperlipidemia 272 .4 [place] [address] [address] Oct, Hypertension I10 ; Hyperlipidemia E78.5 and Shortness of breath R06.02 [place] [address] [address] Jul, Other and unspecified hyperlipidemia 272 .4 [place] [address] [address] Jul, Essential hypertension, malignant 401.0 and Other and unspecified hyperlipidemia 272.4 [place] [address] [address] May, [facility] [address] [address] May, Essential hypertension, malignant 401.0 and Other and unspecified hyperlipidemia 272.4 [place] [address] [place] [id number] [place] [address] Apr, [place] [address] [address] Apr, Other and unspecified hyperlipidemia 272 .4 ; Essential hypertension, malignant 401.0 and Shortness of breath 786.05 [place] [address] [place] [id number] [place] [address] Apr, [place] [address] [address] 14 Feb, 2014 [facility] [place] [facility] [address] [facility] [id number] [facility] [address] 13 Feb, 2015 [facility] [place] [facility] [address] [facility] [id number] [facility] [address] 21 Jan, 2015 [facility] [place] [facility] [address] [id number] [facility] [address] 21 Jan, 2015 [facility] [place] [facility] [address] [id number] [place] [address] 20 Jan, 2015 [facility] [place] [facility] [address] [facility] [id number] [place] [address] 20 Jan, 2015 [facility] [place] [facility] [address] [id number] [place] [address] 18 Jan, 2015 [facility] [place] [facility] [address] [id number] [facility] [address] 18 Jan, 2015 [facility] [place] [facility] [address] [id number] [facility] [address] 10 Jan, 2014 [facility] [place] [facility] [address] [id number] [facility] [address] 10 Jan, 2015 [facility] [place] [facility] [address] [id number] [facility] [address] 05 Jan, 2014 [facility] [place] [facility] [address] [id number] [place] [address] 05 Jan, 2014 [facility] [place] [facility] [address] [id number] [place] [address] 03 Dec, 2014 [facility] [place] [facility] [address] [facility] [id number] [facility] [address] 03 Dec, 2014 [facility] [place] [facility] [address] [id number] [place] [address] 18 Sep, 2014 [facility] [place] [facility] [address] [id number] [facility] [address] 18 Sep, 2014 [facility] [place] [facility] [address] [id number] [place] [address] Sep, [facility] [place] [facility] [address] [id number] [place] [address] Sep, [facility] [place] [facility] [address] [id number] [place] [address] Sep, [facility] [place] [facility] [address] [id number] [place] [address] Sep, [facility] [place] [facility] [address] [id number] [place] [id number] Aug, [facility] [place] [facility] [address] [id number] [place] [address] Aug, [facility] [place] [facility] [address] [id number] [place] [address] Aug, [facility] [place] [facility] [address] [id number] [place] [address] Aug, [facility] [place] [facility] [address] [id number] [place] [address] Jul, [facility] [place] [facility] [address] [id number] [place] [address] Jul, [facility] [place] [facility] [address] [id number] [place] [address] Jun, [facility] [place] [facility] [address] [id number] [place] [address] Jun, [facility] [place] [facility] [address] [id number] [place] [address] May, [facility] [place] [facility] [address] [id number] [place] [address] May, [facility] [place] [facility] [address] [id number] [place] [address] May, [facility] [place] [facility] [address] [id number] [place] [address] May, [facility] [place] [facility] [address] [id number] [place] [address] Apr, [facility] [place] [facility] [address] [id number] [place] [address] Apr, [facility] [place] [facility] [address] [facility] [id number] [place] [address] Apr, [facility] [place] [facility] [address] [facility] [id number] [place] [id number] Apr, [facility] [place] [facility] [address] [id number] [place] [id number] March, [facility] [place] [facility] [address] [id number] [place] [address] March, [facility] [place] [facility] [address] [facility] [id number] [place] [address] Feb, [facility] [place] [facility] [address] [id number] [place] [address] Feb, [facility] [place] [facility] [address] [id number] [place] [address] Feb, [facility] [place] [facility] [address] [id number] [place] [address] Feb, [facility] [place] [facility] [address] [id number] [place] [id number] Feb, [facility] [place] [facility] [address] [id number] [place] [address] Feb, [facility] [place] [facility] [address] [id number] [place] [address] Feb, [facility] [place] [facility] [address] [id number] [place] [address] Feb, [facility] [place] [facility] [address] [id number] [place] [address] Jan, [facility] [place] [facility] [address] [id number] [place] [id number] Jan, [facility] [place] [facility] [address] [id number] [place] [address] Jan, [facility] [place] [facility] [address] [id number] [place] [address] Jan, [facility] [place] [facility] [address] [id number] [place] [id number] Jan, [facility] [place] [facility] [address] [facility] [id number] [place] [id number] Jan, [facility] [address] [facility] [id number] [place] [id number] Jan, [facility] [address] [id number] [place] [id number] Jan, [facility] [address] [id number] [place] [id number] Jan, [facility] [address] [facility] [id number] [place] [address] Jan, [facility] [address] [id number] [place] [id number] Jan, [facility] [address] [id number] [place] [id number] Jan, [facility] [address] [id number] [place] [id number] Jan, [facility] [address] [id number] [place] [id number] Jan, [facility] [address] [id number] [place] [id number] Dec, [facility] [address] [id number] [place] [id number] Dec, [facility] [address] [id number] [place] [id number] Nov, [facility] [address] [facility] [id number] [place] [id number] Nov, [facility] [address] [id number] [place] [id number] Nov, [facility] [address] [id number] [place] [id number] Nov, [facility] [address] [id number] [place] [id number] Nov, [facility] [address] [id number] [place] [address] Nov, [facility] [id number] [place] [address] Oct, [facility] [id number] [place] [address] Oct, [facility] [id number] [place] [address] Sep, [facility] [id number] [place] [address] Sep, [facility] [address] [id number] Sep, [facility] [id number] [place] [address] Sep, [facility] [id number] [place] [address] Aug, [facility] [id number] [place] [address] Aug, IMMUNIZATIONS No Known Immunizations SOCIAL HISTORY [...]
--- OUTSIDE RECORDS SUMMARY | 2020-05-23 22:00 | XMS REPORT | Continuity of Care Document ---
Author Organization Unknown Address Unknown Phone Unavailable Allergies Active Description Code Type Severity Reaction Onset Reported/Identified Relationship to Patient Clinical Status Yes No Known Drug Allergies [id number] Drug Allergy Unknown N/A 08/28/2013 Medications There is no data. 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 09/19/2013 NAZ JOB PLACEMENT OFFICER, LASHAUN R V04.81 FLU SHOT 09/19/2013 NAZ JOB PLACEMENT OFFICER, LASHAUN R V12.54 PERSONAL HISTORY OF TRANSIENT ISCHEMIC A TTACK (TIA) AND CEREBRAL INFARCTION WITHOUT RESIDUAL DEFICITS 09/19/2013 NAZ JOB PLACEMENT OFFICER, LASHAUN R V04.81 FLU SHOT 09/19/2013 NAZ JOB PLACEMENT OFFICER, LASHAUN R V12.54 PERSONAL HISTORY OF TRANSIENT ISCHEMIC A TTACK (TIA) AND CEREBRAL INFARCTION WITHOUT RESIDUAL DEFICITS 09/19/2013 DILIP KELLY MIKE K V04.81 FLU SHOT 09/19/2013 CHERRY DO MIKE K 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 09/19/2013 NAZ JOB PLACEMENT OFFICER, LASHAUN R V04.81 FLU SHOT 09/19/2013 NAZ SIMMS, LASHAUN R V12.54 PERSONAL HISTORY OF TRANSIENT ISCHEMIC A TTACK (TIA) AND CEREBRAL INFARCTION WITHOUT RESIDUAL DEFICITS 09/19/2013 NAZ JOB PLACEMENT OFFICER, LASHAUN R V04.81 FLU SHOT 09/19/2013 NAZ JOB PLACEMENT OFFICER, LASHAUN R V12.54 PERSONAL HISTORY OF TRANSIENT ISCHEMIC A TTACK (TIA) AND CEREBRAL INFARCTION WITHOUT RESIDUAL DEFICITS 09/19/2013 CHERRY DO MIKE K V04.81 FLU SHOT 09/19/2013 CHERRY DO MIKE K 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 09/19/2013 NAZ JOB PLACEMENT OFFICER, LASHAUN R V04.81 FLU SHOT 09/19/2013 NAZ JOB PLACEMENT OFFICER, LASHAUN R V12.54 PERSONAL HISTORY OF TRANSIENT ISCHEMIC A TTACK (TIA) AND CEREBRAL INFARCTION WITHOUT RESIDUAL DEFICITS 09/19/2013 CHERRY DO, MIKE K V04.81 FLU SHOT 09/19/2013 CHERRY DO, MIKE K 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 09/19/2013 NAZ JOB PLACEMENT OFFICER, LASHAUN R V04.81 FLU SHOT 09/19/2013 NAZ JOB PLACEMENT OFFICER, LASHAUN R V12.54 PERSONAL HISTORY OF TRANSIENT ISCHEMIC A TTACK (TIA) AND CEREBRAL INFARCTION WITHOUT RESIDUAL DEFICITS 09/19/2013 NAZ JOB PLACEMENT OFFICER, LASHAUN R V04.81 FLU SHOT 09/19/2013 NAZ JOB PLACEMENT OFFICER, LASHAUN R V12.54 PERSONAL HISTORY OF TRANSIENT ISCHEMIC A TTACK (TIA) AND CEREBRAL INFARCTION WITHOUT RESIDUAL DEFICITS 09/19/2013 NAZ JOB PLACEMENT OFFICER, LASHAUN R V04.81 FLU SHOT 09/19/2013 NAZ JOB PLACEMENT OFFICER, LASHAUN R V12.54 PERSONAL HISTORY OF TRANSIENT ISCHEMIC A TTACK (TIA) AND CEREBRAL INFARCTION WITHOUT RESIDUAL DEFICITS 09/19/2013 NAZ JOB PLACEMENT OFFICER, LASHAUN R V04.81 FLU SHOT 09/19/2013 NAZ JOB PLACEMENT OFFICER, LASHAUN R V12.54 PERSONAL HISTORY OF TRANSIENT ISCHEMIC A TTACK (TIA) AND CEREBRAL INFARCTION WITHOUT RESIDUAL DEFICITS 09/19/2013 NAZ JOB PLACEMENT OFFICER, LASHAUN R V04.81 FLU SHOT 09/19/2013 NAZ JOB PLACEMENT OFFICER, LASHAUN R V12.54 PERSONAL HISTORY OF TRANSIENT ISCHEMIC A TTACK (TIA) AND CEREBRAL INFARCTION WITHOUT RESIDUAL DEFICITS 09/19/2013 CHERRY DO, MIKE K V04.81 FLU SHOT 09/19/2013 CHERRY DO, MIKE K 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 10/02/2013 CHERRY DO, MIKE K 438.9 CVA LATE EFFECTS 10/02/2013 NAZ JOB PLACEMENT OFFICER, LASHAUN R 438.9 CVA LATE EFFECTS 10/02/2013 NAZ JOB PLACEMENT OFFICER, LASHAUN R 438.9 CVA LATE EFFECTS 10/02/2013 CHERRY DO, MIKE K 438.9 CVA LATE EFFECTS 10/02/2013 NAZ JOB PLACEMENT OFFICER, LASHAUN R 438.9 CVA LATE EFFECTS 10/02/2013 NAZ JOB PLACEMENT OFFICER, LASHAUN R 438.9 CVA LATE EFFECTS 10/02/2013 CHERRY DO MIKE K 438.9 CVA LATE EFFECTS 10/02/2013 NAZ JOB PLACEMENT OFFICER, LASHAUN R 438.9 CVA LATE EFFECTS 10/02/2013 CHERRY DO, MIKE K 438.9 CVA LATE EFFECTS 10/02/2013 NAZ JOB PLACEMENT OFFICER, LASHAUN R 438.9 CVA LATE EFFECTS 10/02/2013 NAZ JOB PLACEMENT OFFICER, LASHAUN R 438.9 CVA LATE EFFECTS 10/02/2013 NAZ JOB PLACEMENT OFFICER, LASHAUN R 438.9 CVA LATE EFFECTS 10/02/2013 NAZ JOB PLACEMENT OFFICER, LASHAUN R 438.9 CVA LATE EFFECTS 10/02/2013 NAZ JOB PLACEMENT OFFICER, LASHAUN R 438.9 CVA LATE EFFECTS 10/02/2013 CHERRY DO, MIKE K 438.9 CVA LATE EFFECTS 12/18/2013 NAZ JOB PLACEMENT OFFICER, LASHAUN R V81.1 HYPERTENSION SCREENING 12/18/2013 NAZ JOB PLACEMENT OFFICER, LASHAUN R V81.1 HYPERTENSION SCREENING 12/18/2013 CHERRY DO, MIKE K V81.1 HYPERTENSION SCREENING 12/18/2013 NAZ JOB PLACEMENT OFFICER, LASHAUN R V81.1 HYPERTENSION SCREENING 12/18/2013 NAZ JOB PLACEMENT OFFICER, LASHAUN R V81.1 HYPERTENSION SCREENING 12/18/2013 CHERRY DO, MIKE K V81.1 HYPERTENSION SCREENING 12/18/2013 NAZ JOB PLACEMENT OFFICER, LASHAUN R V81.1 HYPERTENSION SCREENING 12/18/2013 CHERRY DO, MIKE K V81.1 HYPERTENSION SCREENING 12/18/2013 NAZ JOB PLACEMENT OFFICER, LASHAUN R V81.1 HYPERTENSION SCREENING 12/18/2013 NAZ JOB PLACEMENT OFFICER, LASHAUN R V81.1 HYPERTENSION SCREENING 12/18/2013 NAZ JOB PLACEMENT OFFICER, LASHAUN R V81.1 HYPERTENSION SCREENING 12/18/2013 NAZ JOB PLACEMENT OFFICER, LASHAUN R V81.1 HYPERTENSION SCREENING 12/18/2013 NAZ JOB PLACEMENT OFFICER, LASHAUN R V81.1 HYPERTENSION SCREENING 12/18/2013 CHERRY DO, MIKE K V81.1 HYPERTENSION SCREENING 01/23/2014 NAZ JOB PLACEMENT OFFICER, LASHAUN R 780.4 DIZZINESS AND GIDDINESS 01/23/2014 CHERRY DO, MIKE K 780.4 DIZZINESS AND GIDDINESS 01/23/2014 NAZ JOB PLACEMENT OFFICER, LASHAUN R 780.4 DIZZINESS AND GIDDINESS 01/23/2014 NAZ JOB PLACEMENT OFFICER, LASHAUN R 780.4 DIZZINESS AND GIDDINESS 01/23/2014 CHERRY DO, MIKE K 780.4 DIZZINESS AND GIDDINESS 01/23/2014 NAZ JOB PLACEMENT OFFICER, LASHAUN R 780.4 DIZZINESS AND GIDDINESS 01/23/2014 CHERRY DO, MIKE K 780.4 DIZZINESS AND GIDDINESS 01/23/2014 NAZ JOB PLACEMENT OFFICER, LASHAUN R 780.4 DIZZINESS AND GIDDINESS 01/23/2014 NAZ JOB PLACEMENT OFFICER, LASHAUN R 780.4 DIZZINESS AND GIDDINESS 01/23/2014 NAZ JOB PLACEMENT OFFICER, LASHAUN R 780.4 DIZZINESS AND GIDDINESS 01/23/2014 NAZ JOB PLACEMENT OFFICER, LASHAUN R 780.4 DIZZINESS AND GIDDINESS 01/23/2014 NAZ JOB PLACEMENT OFFICER, LASHAUN R 780.4 DIZZINESS AND GIDDINESS 01/23/2014 CHERRY DO, MIKE K 780.4 DIZZINESS AND GIDDINESS 02/07/2014 NAZ JOB PLACEMENT OFFICER, LASHAUN R 401.0 HYPERTENSION MALIGNANT ESSENTIAL 02/07/2014 CHERRY DO, MIKE K 401.0 HYPERTENSION MALIGNANT ESSENTIAL 02/07/2014 NAZ JOB PLACEMENT OFFICER, LASHAUN R 401.0 HYPERTENSION MALIGNANT ESSENTIAL 02/07/2014 CHERRY DO, MIKE K 401.0 HYPERTENSION MALIGNANT ESSENTIAL 02/07/2014 NAZ JOB PLACEMENT OFFICER, LASHAUN R 401.0 HYPERTENSION MALIGNANT ESSENTIAL 02/07/2014 NAZ JOB PLACEMENT OFFICER, LASHAUN R 401.0 HYPERTENSION MALIGNANT ESSENTIAL 02/07/2014 NAZ JOB PLACEMENT OFFICER, LASHAUN R 401.0 HYPERTENSION MALIGNANT ESSENTIAL 02/07/2014 NAZ JOB PLACEMENT OFFICER, LASHAUN R 401.0 HYPERTENSION MALIGNANT ESSENTIAL 02/07/2014 NAZ JOB PLACEMENT OFFICER, LASHAUN R 401.0 HYPERTENSION MALIGNANT ESSENTIAL 02/07/2014 CHERRY DO, MIKE K 401.0 HYPERTENSION MALIGNANT ESSENTIAL 02/14/2014 CHERRY DO, MIKE K 706.2 SEBACEOUS CYST 02/14/2014 NAZ JOB PLACEMENT OFFICER, LASHAUN R 706.2 SEBACEOUS CYST 02/14/2014 CHERRY DO, MIKE K 706.2 SEBACEOUS CYST 02/14/2014 NAZ JOB PLACEMENT OFFICER, LASHAUN R 706.2 SEBACEOUS CYST 02/14/2014 NAZ JOB PLACEMENT OFFICER, LASHAUN R 706.2 SEBACEOUS CYST 02/14/2014 NAZ JOB PLACEMENT OFFICER, LASHAUN R 706.2 SEBACEOUS CYST 02/14/2014 NAZ JOB PLACEMENT OFFICER, LASHAUN R 706.2 SEBACEOUS CYST 02/14/2014 NAZ JOB PLACEMENT OFFICER, LASHAUN R 706.2 SEBACEOUS CYST 02/14/2014 CHERRY DO, MIKE K 706.2 SEBACEOUS CYST 02/28/2014 NAZ JOB PLACEMENT OFFICER, LASHAUN R 796.2 ELEVATED BLOOD PRESSURE READING WITHOUT DIAGNOSIS OF H YPERTENSION 02/28/2014 DILIP KELLY MIKE K 796.2 ELEVATED BLOOD PRESSURE READING WITHOUT DIAGNOSIS OF HYPERTENSION 02/28/2014 NAZ JOB PLACEMENT OFFICER, LASHAUN R 796.2 ELEVATED BLOOD PRESSURE READING WITHOUT DIAGNOSIS OF H YPERTENSION 02/28/2014 NAZ JOB PLACEMENT OFFICER, LASHAUN R 796.2 ELEVATED BLOOD PRESSURE READING WITHOUT DIAGNOSIS OF H YPERTENSION 02/28/2014 NAZ JOB PLACEMENT OFFICER, LASHAUN R 796.2 ELEVATED BLOOD PRESSURE READING WITHOUT DIAGNOSIS OF H YPERTENSION 02/28/2014 NAZ JOB PLACEMENT OFFICER, LASHAUN R 796.2 ELEVATED BLOOD PRESSURE READING WITHOUT DIAGNOSIS OF H YPERTENSION 02/28/2014 NAZ JOB PLACEMENT OFFICER, LASHAUN R 796.2 ELEVATED BLOOD PRESSURE READING WITHOUT DIAGNOSIS OF H YPERTENSION 02/28/2014 CHERRY LA KELLYA K 796.2 ELEVATED BLOOD PRESSURE READING WITHOUT DIAGNOSIS OF HYPERTENSION 02/06/2015 NAZ SIMMS, LASHAUN R 272.4 HYPERLIPIDEMIA 02/06/2015 NAZ GOFFN, LASHAUN R 272.4 HYPERLIPIDEMIA 02/06/2015 LA CHERRY DOA K 272.4 HYPERLIPIDEMIA 02/07/2015 NAZ GOFFN, LASHAUN R 388.70 OTALGIA UNSPECIFIED 02/07/2015 NAZ GOFFN, LASHAUN R 388.70 OTALGIA UNSPECIFIED 02/07/2015 DILIP KELLY MIKE K 388.70 OTALGIA UNSPECIFIED 03/12/2019 LIZ FLORES, LEODAN Diaz Ot M17. 11 UNILATERAL PRIMARY OSTEOARTHRITIS, RIGHT 04/02/2019 LIZ FLORES, LEODAN Diaz Ot M17. 11 UNILATERAL PRIMARY OSTEOARTHRITIS, RIGHT 04/26/2019 LIZ FLORES, LEODAN Diaz Ot M17. 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41 LOCALIZED SWELLING, MASS AND LUMP, RIGHT 10/13/2019 GIORGIO AGUILAR APRN Ot I10 ESSENTIAL (PRIMARY) HYPERTENSION 10/13/2019 GIORGIO AGUILAR APRN Ot J40 BRONCHITIS, NOT SPECIFIED ACUTE OR CH 10/13/2019 GIORGIO AGUILAR APRN Ot M10 .9 GOUT, UNSPECIFIED 10/13/2019 GIORGIO AGUILAR APRN Ot R05 COUGH 10/13/2019 GIORGIO AGUILAR APRN Ot Z86.73 PRSNL HX OF TIA (TIA), AND CEREB INFRC W 01/20/2020 LEODAN HILL MD Ot M17. 11 UNILATERAL PRIMARY OSTEOARTHRITIS, RIGHT 02/25/2020 LEODAN HILL MD Ot M17. 11 UNILATERAL PRIMARY OSTEOARTHRITIS, RIGHT 03/16/2020 LEODAN HILL MD Ot M17. 11 UNILATERAL PRIMARY OSTEOARTHRITIS, RIGHT Procedures Code Description Performed By Per formed On CARDIOLOG GOETZ, HEART [facility] VASC. 09/19/20131999F BLOO D PRESSURE CHECK 12/18/20131999F BLOO D PRESSURE CHECK 02/07/20141999F BLOO D PRESSURE CHECK 02/19/2014 NEUROLOGY ANDREEA ROBB 02/19/20141999F BLOO D PRESSURE CHECK 03/03/20141999F BLOO D PRESSURE CHECK 09/11/20141999F BLOO D PRESSURE CHECK 03/04/2015 Results Test Result Range Complete blood count (CBC) with automate d white blood cell (WBC) differential - 09/14/19 08:05 Blood leukocytes automated count (number/volume) 12.3 10*3/uL 4.3-11.0 Blood erythrocytes automated count (number/volume) 4.80 10*6/uL 4.35-5.85 Venous blood hemoglobin measurement (mass/volume) 12.8 g/dL 13.3-17.7 Blood hematocrit (volume fraction) 39 % 40-54 Automated erythrocyte mean corpuscular volume 81 [ foz_us] 80-99 Automated erythrocyte mean corpuscular h emoglobin (mass per erythrocyte) 27 pg 25-34 Automated erythrocyte mean corpuscular h emoglobin concentration measurement (mass/volume) 33 g/dL 32-36 Automated erythrocyte distribution width ratio 14. 8 % 10.0- 14.5 Automated blood platelet count (count/volume) 324 10*3/uL 130-400 Automated blood platelet mean volume measurement 10.8 [foz_us] 7.4-10.4 Automated blood neutrophils/100 leukocytes 76 % 42-75 Automated blood lymphocytes/100 leukocytes 12 % 12-44 Blood monocytes/100 leukocytes 11 % 0-12 Automated blood eosinophils/100 leukocytes 1 % 0-10 Automated blood basophils/100 leukocytes 0 % 0-10 Blood neutrophils automated count (number/volume) 9.4 10*3 1.8-7.8 Blood lymphocytes automated count (number/volume) 1.4 10*3 1.0-4.0 Blood monocytes automated count (number/volume) 1. 4 10*3 0.0-1.0 Automated eosinophil count 0.1 10*3/uL 0 .0-0.3 Automated blood basophil count (count/volume) 0.0 10*3/uL 0.0-0.1 Comprehensive metabolic panel - 09/14/19 08:05 Serum or plasma sodium measurement (moles/volume) 139 mmol/L 135-145 Serum or plasma potassium measurement (moles/volume) 3.0 mmol/L 3.6-5.0 Serum or plasma chloride measurement (moles/volume) 99 mmol/L 98-107 Carbon dioxide 26 mmol/L 21-32 Serum or plasma anion gap determination (moles/volume) 14 mmol/L 5-14 Serum or plasma urea nitrogen measurement (mass/volume ) 11 mg/dL 7-18 Serum or plasma creatinine measurement (mass/volume) 1.04 mg/dL 0.60-1.30 Serum or plasma urea nitrogen/creatinine mass ratio 11 NRG Serum or plasma creatinine measurement w ith calculation of estimated glomerular filtration rate > NRG Serum or plasma glucose measurement (mass/volume) 167 mg/dL 70-105 Serum or plasma calcium measurement (mass/volume) 9.3 mg/dL 8.5-10.1 Serum or plasma total bilirubin measurement (mass/volu me) 0.8 mg/dL 0.1-1.0 Serum or plasma alkaline phosphatase aubrey surement (enzymatic activity/volume) 65 U/L 40-136 Serum or plasma aspartate aminotransfera se measurement (enzymatic activity/volume) 12 U/L 5-34 Serum or plasma alanine aminotransferase measurement (enzymatic activity/volume) 12 U/L 0-55 Serum or plasma protein measurement (mass/volume) 7.5 g/dL 6.4-8.2 Serum or plasma albumin measurement (mass/volume) 3.9 g/dL 3.2-4.5 CALCIUM CORRECTED 9.4 mg/dL 8.5-10.1 Serum or plasma C reactive protein measu rement (mass/volume) - 09/14/19 08:05 Serum or plasma C reactive protein measurement (mass/v olume) 19.45 mg/dL 0.00-0.50 Gram stain microscopy - 09/29/19 21:00 Gram stain microscopy No bacteria seen NRG Bacterial body fluid culture - 09/29/19 21:00 Bacterial body fluid culture NG N RG Complete blood count (CBC) with automate d white blood cell (WBC) differential - 10/13/19 18:45 Blood leukocytes automated count (number/volume) 10.0 10*3/uL 4.3-11.0 Blood erythrocytes automated count (number/volume) 5.05 10*6/uL 4.35-5.85 Venous blood hemoglobin measurement (mass/volume) 13.3 g/dL 13.3-17.7 Blood hematocrit (volume fraction) 41 % 40-54 Automated erythrocyte mean corpuscular volume 81 [ foz_us] 80-99 Automated erythrocyte mean corpuscular h emoglobin (mass per erythrocyte) 26 pg 25-34 Automated erythrocyte mean corpuscular h emoglobin concentration measurement (mass/volume) 33 g/dL 32-36 Automated erythrocyte distribution width ratio 15. 7 % 10.0- 14.5 Automated blood platelet count (count/volume) 258 10*3/uL 130-400 Automated blood platelet mean volume measurement 10.6 [foz_us] 7.4-10.4 Automated blood neutrophils/100 leukocytes 67 % 42-75 Automated blood lymphocytes/100 leukocytes 21 % 12-44 Blood monocytes/100 leukocytes 7 % 0-12 Automated blood eosinophils/100 leukocytes 5 % 0-10 Automated blood basophils/100 leukocytes 1 % 0-10 Blood neutrophils automated count (number/volume) 6.7 10*3 1.8-7.8 Blood lymphocytes automated count (number/volume) 2.1 10*3 1.0-4.0 Blood monocytes automated count (number/volume) 0. 7 10*3 0.0-1.0 Automated eosinophil count 0.5 10*3/uL 0 .0-0.3 Automated blood basophil count (count/volume) 0.1 10*3/uL 0.0-0.1 Whole blood basic metabolic panel - 09/21 03/08 18:45 Serum or plasma sodium measurement (moles/volume) 143 mmol/L 135-145 Serum or plasma potassium measurement (moles/volume) 3.6 mmol/L 3.6-5.0 Serum or plasma chloride measurement (moles/volume) 106 mmol/L 98-107 Carbon dioxide 24 mmol/L 21-32 Serum or plasma anion gap determination (moles/volume) 13 mmol/L 5-14 Serum or plasma urea nitrogen measurement (mass/volume ) 12 mg/dL 7-18 Serum or plasma creatinine measurement (mass/volume) 1.15 mg/dL 0.60-1.30 Serum or plasma urea nitrogen/creatinine mass ratio 10 NRG Serum or plasma creatinine measurement w ith calculation of estimated glomerular filtration rate > NRG Serum or plasma glucose measurement (mass/volume) 163 mg/dL 70-105 Serum or plasma calcium measurement (mass/volume) 9.2 mg/dL 8.5-10.1 Encounters ACCT No. Visit Date/Time Discharge Status Pt. Type Provider Facility Loc./Unit Complaint [id number] 03/04/2015 09:14:00 03/04/2015 23:59: 59 CLS Outpatient DILIP KELLY MIKE Vicenta [id number] 02/28/2015 13:24:00 02/28/2015 23:59: 59 CLS Outpatient LASHAUN CHILDS APRN [id number] 02/07/2015 08:47:00 02/07/2015 23:59: 59 CLS Outpatient LASHAUN CHILDS APRN [id number] 10/07/2014 15:42:00 10/07/2014 23:59: 59 CLS Outpatient LASHAUN CHILDS APRN [id number] 09/11/2014 09:32:00 09/11/2014 23:59: 59 CLS Outpatient NAZ SIMMS LASHAUN Elias [id number] 08/26/2014 10:06:00 08/26/2014 23:59: 59 CLS Outpatient NAZ SIMMS LASHAUN Elias [id number] 06/19/2014 10:17:00 06/19/2014 23:59: 59 CLS Outpatient MIKE CHERRY DO Vicenta [id number] 02/28/2014 09:22:00 02/28/2014 23:59: 59 CLS Outpatient NAZ SIMMSLASHAUN [id number] 02/19/2014 09:27:00 02/19/2014 23:59: 59 CLS Outpatient LA CHERRY DOYayo Yadav [id number] 02/07/2014 08:34:00 02/07/2014 23:59: 59 CLS Outpatient NAZ SIMMS LASHAUN Elias [id number] 02/05/2014 09:57:00 02/05/2014 23:59: 59 CLS Outpatient NAZ SIMMS LASHAUN Elias [id number] 01/28/2014 10:45:00 01/28/2014 23:59: 59 CLS Outpatient MIKE CHERRY DO Vicenta [id number] 01/23/2014 13:53:00 01/23/2014 23:59: 59 CLS Outpatient NAZ SIMMSLASHAUN [id number] 12/18/2013 10:25:00 12/18/2013 23:59: 59 CLS Outpatient NAZ SIMMS LASHAUN Elias [id number] 09/19/2013 09:28:00 09/19/2013 23:59: 59 CLS Outpatient MIKE CHERRY DO Vicenta [id number] 10/13/2019 17:58:00 19:22:00 DIS Emergency GIORGIO AGUILAR APRN [facility] ER COUGH/CONGESTION [id number] 09/29/2019 20:35:00 21:27:00 DIS Emergency GIORGIO AGUILAR APRN [facility] ER ANKLE SWELLING [id number] 09/14/2019 07:43:00 09:41:00 DIS Emergency CHARLIE CANO MD [facility] ER SWELLING IN FEE T [id number] 03/11/2019 11:17:00 23:59:59 CLS Outpatient LEODAN HILL MD [facility] RAD RIGHT KNEE PAIN [id number] 08/28/2013 16:57:00 013 19:31:00 DIS Emergency
--- NOTE | 2020-05-23 22:40 | NUR ---
COVID-19 SWAB OBTAINED ET SENT TO LAB. KDHE FORM SENT TO HOUSE SUP.
--- NOTE | 2020-05-23 22:47 | ED General ---
General Chief Complaint: Lower Extremity Stated Complaint: ANKLE PAIN/ SHORTNESS OF BREATH Source of Information: Patient History of Present Illness Date Seen by Provider: May 23, 2020 Time Seen by Provider: 22:30 Initial Comments PT ARRIVES VIA POV FROM HOME C/O BILATERAL FOOT AND ANKLE PAIN FOR SEVERAL DAYS ANKLES HAVE BEEN SWOLLEN HAS NOT TAKEN ANYTHING FOR PAIN SYMPTOMS NO DIFFERENT TODAY HAS NOT SOUGHT CARE UNTIL TODAY HAS HAD THIS PROBLEM IN THE PAST NO KNOWN INJURY ON SCREENING QUESTIONS, AT THE DOOR, PT REPORTED SHORTNESS OF BREATH, SO PT WAS SEEN IN COVID UNIT. PT STATES HE ALWAYS HAS SOME SHORTNESS OF BREATH, MOSTLY ON EXERTION PT HAS MILD COUGH--IS CHRONIC PROBLEM NO FEVER NO URI SYMPTOMS NO CHANGE IN TASTE OR SMELL PT C/O "FEELS LIKE A BUBBLE IN MY CHEST" FOR LAST FEW DAYS THEN STATES "IT'S ELECTRICAL GOING BACK AND FORTH UP AND DOWN THE LEFT SIDE OF MY CHEST" NO PAIN OR DISCOMFORT AT THIS TIME PT TAKES 325 MG ASPIRIN DAILY "TO KEEP THE DR AWAY" PT HAS HISTORY OF HTN, COPD, GOUT JUST PRIOR TO DISMISSAL, PT NOW STATES THAT HIS SON-IN-LAW WORKS AT [employer] AND TESTED + FOR COVID-19 AND WAS SICK WITH IT HIS GRAND SON AND SON BOTH WERE ALSO SICK, AND GRANDSON TESTED + FOR COVID-19 WELL, BUT HIS SON TESTED NEGATIVE. PT STATES HE HAS "BEEN ON QUARANTINE" FOR 3 WEEKS PCP: DR. Alli HILL Allergies and Home Medications Allergies Coded Allergies: No Known Drug Allergies (Unverified , 08/28/13) Home Medications Azithromycin 500 Mg Tablet, 500 MG PO DAILY Prescribed by: TIM DE LA CRUZ on 05/24/20107 Cefdinir 300 Mg Capsule, 300 MG PO BID Prescribed by: TIM DE LA CRUZ on 05/24/20107 Clonidine Hcl 0.2 Mg Tab, 1 EACH PO BID FOR BLOOD PRESSURE Prescribed by: TIM DE LA CRUZ on 08/28/131914 Colchicine 0.6 Mg Tablet, 0.6 MG PO UD 1.2 MG AT ONSET OF GOUT FLARE, THEN MAY TAKE 0.6 MG BID Prescribed by: TIM DE LA CRUZ on 05/24/20107 Doxycycline Hyclate 100 Mg Tablet, 100 MG PO BID Prescribed by: GIORGIO AGUILAR on 10/13/19 185 Meclizine Hcl 25 Mg Tab, 1-2 TAB PO Q 4-6 HOURS PRN FOR DIZZINESS Prescribed by: TIM DE LA CRUZ on 08/28/131914 Methylprednisolone 4 Mg Tab.ds.pk, 4 MG PO UD PER DOSE PACK INSTRUCTIONS Prescribed by: TIM DE LA CRUZ on 05/24/20107 Ondansetron Hcl 4 Mg Tab, 4 MG PO Q4H FOR NAUSEA AND VOMITING Prescribed by: TIM DE LA CRUZ on 08/28/131914 Prednisone 20 Mg Tab, 40 MG PO DAILY Prescribed by: GIORGIO AGUILAR on 09/29/192115 Prednisone 20 Mg Tab, 40 MG PO DAILY Prescribed by: GIORGIO AGUILAR on 10/13/191851 Scopolamine Hcl 1 Patch .72 H Patch.td72, 1 EA TD Q3D FOR DIZZINESS Prescribed by: TIM DE LA CRUZ on 08/28/131914 Patient Home Medication List Home Medication List Reviewed: Yes Review of Systems Review of Systems Constitutional: no symptoms reported; No chills, No diaphoresis, No dizziness, No fever EENTM: no symptoms reported Respiratory: see HPI, cough, dyspnea on exertion, short of breath Cardiovascular: see HPI, chest pain, edema; No palpitations Gastrointestinal: no symptoms reported Genitourinary: no symptoms reported Musculoskeletal: see HPI, joint pain Skin: no symptoms reported Psychiatric/Neurological: No Symptoms Reported Hematologic/Lymphatic: No Symptoms Reported Immunological/Allergic: no symptoms reported Past Skylfqw-Icjlgm-Nxdpne Hx Past Med/Social Hx: Reviewed and Corrections made ( C) Patient Social History Alcohol Beverage of Choice: [employer] Smoke Exposure: No Recent Foreign Travel: No Contact w/Someone Who Travel: No Recent Hopitalizations: No Seasonal Allergies Seasonal Allergies: No Past Medical History Surgeries: No Respiratory: No Cardiac: Yes Hypertension Neurological: Yes (STROKE IN 2012) Stroke Reproductive Disorders: No Gastrointestinal: No Musculoskeletal: Yes Gout Endocrine: No HEENT: No Cancer: No Psychosocial: No Integumentary: No Blood Disorders: No Family Medical History No Pertinent Family Hx Physical Exam Vital Signs Vital Signs - First Documented 05/24/20 02:22 Pulse 72 Resp 16 B/P (MAP) 141/87 Pulse Ox 95 O2 Delivery Room Air Capillary Refill : Height, Weight, BMI Height: '" Weight: 190lbs. oz. 86.720157kr; 35.00 BMI Method:Estimated General Appearance: No Apparent Distress, Obese Neck: Normal Inspection, Non Tender, Supple; No JVD Respiratory: Normal Breath Sounds, No Accessory Muscle Use, No Respiratory Distress Cardiovascular: Regular Rate, Rhythm, No JVD, No Murmur, Normal Peripheral Pulses Gastrointestinal: Non Tender, Soft Extremity: Normal Capillary Refill, No Calf Tenderness, Other (RIGHT > LEFT ANKLE SWOLLEN AND BOTH ARE VERY TENDER TO PALPATION. ERYTHEMA AND WARMTH TO BILATERAL ANKLES. ) Neurologic/Psychiatric: Alert, Oriented x3, No Motor/Sensory Deficits, Normal Mood/Affect, computer consultant II-XII Norm as Tested Skin: Normal Color, Warm/Dry Progress/Results/Core Measures Suspected Sepsis SIRS Temperature: Pulse: Respiratory Rate: Blood Pressure / Mean: Results/Orders Lab Results My Orders Medications Given in ED Vital Signs/I&O Capillary Refill : Progress Note : Progress Note PT SEEN IN COVID UNIT, PPE WORN AT ALL TIMES COVID TESTING PERFORMED. DYSPNEA ON MINIMAL [id number]--[id number] UP AT BEDSIDE TO URINATE, BUT NO DROP IN O2 SAT. IMPROVES AFTER HE HAS BEEN AT REST FOR AWHILE. OTHERWISE UNEVENTFUL ER STAY O2 SATS AND VITALS STABLE ECG Initial ECG Impression Date: May 23, 2020 Initial ECG Impression Time: 22:36 Initial ECG Rate: 94 Initial ECG Rhythm: Normal Sinus Initial ECG Impression: Normal Diagnostic Imaging Comments CXR--NO ACUTE PROCESS, PENDING RADIOLOGIST REVIEW CT CHEST ANGIOGRAM--NO P.E. SMALL FAINT GROUNDGLASS OPACITY IN R COSTOPHRENIC SULCUS. SUBSEGMENTAL ATELECTASIS IN LLL , TINY PERICARDIAL EFFUSION--PER [facility] VIA FAX AT 0602 Reviewed: Reviewed by Me Departure Impression Primary Impression: Pneumonitis Additional Impressions: COVID P.U.I. GOUT FLARE OF BILATERAL ANKLES AND FEET Disposition: 01 HOME, SELF-CARE Condition: Stable Departure-Patient Inst. Referrals: LEODAN HILL MD (PCP/Family) Primary Care Physician Patient Instructions: Coronavirus Disease 2019 (COVID-19) (ANUJ), Gout (ANUJ), Pneumonitis (ANUJ) Add. Discharge Instructions: HOME, REST LOTS OF FLUIDS TYLENOL NEEDED FOR PAIN OR FEVER FOLLOW UP WITH YOUR DR IN 4-5 DAYS IF NO BETTER, RETURN TO ER IF WORSE QUARANTINE YOURSELF AND ALL HOUSEHOLD MEMBERS AND ALL CLOSE CONTACTS FOR THE NEXT 2 WEEKS--NO ONE ENTERS OR LEAVES YOUR HOME FOR THE NEXT 2 WEEKS. All discharge instructions reviewed with patient and/or family. Voiced understanding. Scripts Colchicine (Colchicine) 0.6 Mg Tablet 0.6 MG PO UD, #6 TAB 1.2 MG AT ONSET OF GOUT FLARE, THEN MAY TAKE 0.6 MG BID Prov: TIM DE LA CRUZ DO 05/24/20 Methylprednisolone (Medrol) 4 Mg Tab.ds.pk 4 MG PO UD for 6 Days, #21 PKG PER DOSE PACK INSTRUCTIONS Prov: TIM DE LA CRUZ DO 05/24/20 Azithromycin (Zithromax) 500 Mg Tablet 500 MG PO DAILY, #5 TAB Prov: TIM DE LA CRUZ DO 05/24/20 Cefdinir (Cefdinir) 300 Mg Capsule 300 MG PO BID, #20 CAP Prov: TIM DE LA CRUZ DO 05/24/20 TIM DE LA CRUZ DO May 23, 2020 22:47
[2020-05-23 22:58] LABS: BASOPHILS % (AUTO) 0 % (0-10); BILIRUBIN,URINE NEGATIVE (NEGATIVE); CLARITY,URINE CLEAR; COLOR,URINE YELLOW; EOSINOPHILS # (AUTO) 0.2 10^3/uL (0.0-0.3); EOSINOPHILS % (AUTO) 2 % (0-10); GLUCOSE, URINE (UA) NEGATIVE (NEGATIVE); HEMATOCRIT 40 % (40-54); HEMOGLOBIN 13.6 G/DL (13.3-17.7); KETONES,URINE NEGATIVE (NEGATIVE); LEUKOCYTE ESTERASE ,URINE NEGATIVE (NEGATIVE); LYMPHOCYTES # (AUTO) 1.7 X 10^3 (1.0-4.0); LYMPHOCYTES % (AUTO) 15 % (12-44); MEAN CORPUSCULAR HEMOGLOBIN 28 PG (25-34); MEAN CORPUSCULAR HGB CONC 34 G/DL (32-36); MEAN CORPUSCULAR VOLUME 81 FL (80-99); MEAN PLATELET VOLUME 11.1 FL (7.4-10.4); MONOCYTES # (AUTO) 1.5 X 10^3 (0.0-1.0); MONOCYTES % (AUTO) 13 % (0-12); NEUTROPHILS % (AUTO) 70 % (42-75); NITRITE,URINE NEGATIVE (NEGATIVE); PH,URINE 5.5 (5-9); PLATELET COUNT 356 10^3/uL (130-400); PROTEIN,URINE TRACE (NEGATIVE); RED CELL DISTRIBUTION WIDTH 14.9 % (10.0-14.5); WHITE BLOOD COUNT 11.5 10^3/uL (4.3-11.0)
[2020-05-23] MEDS ORDERED: KETOROLAC 30 MG/ML VIAL IVP ONE (23:00)
[2020-05-23 23:12] LABS: AMPHETAMINE SCREEN, URINE NEGATIVE (NEGATIVE); BENZODIAZEPINES SCREEN URINE NEGATIVE (NEGATIVE); CANNABINOID SCREEN, URINE NEGATIVE (NEGATIVE); COCAINE SCREEN URINE NEGATIVE (NEGATIVE); METHAMPHETAMINE SCREEN URINE S NEGATIVE (NEGATIVE)
[2020-05-23 23:13] LABS: BARBITURATE SCREEN URINE NEGATIVE (NEGATIVE); FIBRIN DEGRADATION PRODUCTS 1.09 UG/ML (0.00-0.49); METHADONE STAT NEGATIVE (NEGATIVE); OPIATE SCREEN URINE NEGATIVE (NEGATIVE); OXYCODONE STAT POSITIVE (NEGATIVE); PROPOXYPHENE STAT NEGATIVE (NEGATIVE); PROTHROMBIN TIME PATIENT 13.8 SEC (12.2-14.7); TRICYCLIC ANTIDEPRESSANTS SCRE NEGATIVE (NEGATIVE)
[2020-05-23 23:15] LABS: BACTERIA,URINE NEGATIVE /HPF; HYALINE CASTS, URINE 0-2 /LPF; WBC,URINE 0-2 /HPF
[2020-05-23 23:19] LABS: CHLORIDE 100 MMOL/L (98-107); ERYTHROCYTE SEDIMENTATION RATE 42 MM/HR (0-30); POTASSIUM 3.3 MMOL/L (3.6-5.0); SODIUM 141 MMOL/L (135-145)
--- NOTE | 2020-05-23 23:19 | NUR ---
Pt told family on phone, "That shot they gave me took 90% of the pain away."
[2020-05-23 23:21] LABS: AMYLASE 29 U/L (25-125)
[2020-05-23 23:22] LABS: GLUCOSE 118 MG/DL (70-105); TOTAL PROTEIN 7.5 GM/DL (6.4-8.2)
[2020-05-23 23:23] LABS: BILIRUBIN,TOTAL 0.6 MG/DL (0.1-1.0); CARBON DIOXIDE 27 MMOL/L (21-32)
[2020-05-23 23:25] LABS: ALKALINE PHOSPHATASE 66 U/L (40-136); CREATININE SERUM 1.24 MG/DL (0.60-1.30); GFR ESTIMATED 58
[2020-05-23 23:27] LABS: BUN/CREATININE RATIO 14
[2020-05-23 23:28] LABS: ALANINE AMINOTRANSFERASE 19 U/L (0-55); MAGNESIUM 1.5 MG/DL (1.6-2.4); URIC ACID 7.7 MG/DL (2.6-7.2)
[2020-05-23 23:29] LABS: LIPASE 20 U/L (8-78)
[2020-05-23 23:30] LABS: CREATINE KINASE 73 U/L (30-200)
[2020-05-23 23:36] LABS: CREATINE KINASE MB 0.5 NG/ML (<6.6)
[2020-05-23] MEDS ORDERED: NS IV 1000 ML 1,000 ML IV SCH (23:38)
[2020-05-24] MEDS ORDERED: NS 100 ML (IVPB) BAG IV ONE (00:30)
[2020-05-24] MEDS ORDERED: IOHEXOL 350 MG/ML 100 ML (OMNIPAQUE 350) VIAL IV ONE (00:30)
[2020-05-24] MEDS ORDERED: HOLD METFORMIN - RECEIVED CONTRAST 20 ML VIAL IV SCH (00:30)
[2020-05-24] MEDS ORDERED: methylPREDNISolone 125 MG (Solu-MEDROL) VIAL IVP ONE (01:00)
[2020-05-24] MEDS ORDERED: cefTRIAXone FOR IV USE 1,000 MG in WATER (STERILE) FOR INJECTION 10 ML IV ONE (01:00)
[2020-05-24] MEDS ORDERED: AZITHROMYCIN 250 MG TAB (ZITHROMAX) PO ONE (01:00)
[2020-05-24] MEDS ORDERED: CEFD300C3 PO (01:08)
[2020-05-24] MEDS ORDERED: METH4TAB PO (01:08)
[2020-05-24] MEDS ORDERED: AZIT500T PO (01:08)
[2020-05-24] MEDS ORDERED: COLC0.6T56 PO (01:08)
[2020-05-24 02:22] VITALS: BP 141/87
--- NOTE | 2020-05-24 06:42 | Diagnostic Imaging Report ---
PROCEDURE: CT angiography of the chest with contrast. TECHNIQUE: Multiple contiguous axial images were obtained through the chest after uneventful bolus administration of intravenous contrast. 3D reconstructed CTA MIP acquisitions were also performed. Auto Exposure Controls were utilized during the CT exam to meet ALARA standards for radiation dose reduction. INDICATION: Fever, cough, and congestion. Evaluation of the pulmonary arterial system is without thromboembolism. No filling defects are seen within central, lobar or segmental branches. Thoracic aorta is normal caliber. No dissection is seen. There is a small to moderate pericardial effusion. No pleural effusion is identified. Parenchymal evaluation demonstrates a small nodule in the lingula measuring 6 mm, indeterminate. There is some minimal infiltrate or atelectasis in the right costophrenic angle as well as the left costophrenic angle. Upper abdomen demonstrates a large cyst in the upper pole left kidney measuring 8 cm. IMPRESSION: 1. No evidence of pulmonary embolism or thoracic aortic dissection. 2. Pericardial effusion. 3. Trace infiltrate or atelectasis right lower lobe, left lower lobe and lingula. Dictated by: Dictated on workstation # [id number]
--- NOTE | 2020-05-24 07:03 | Diagnostic Imaging Report ---
INDICATION: Fever and cough. Time of exam: 11:31 PM Correlation is made with prior chest from 10/13/2019. The heart size is normal. The pulmonary vascularity is unremarkable. The lungs are clear. No infiltrate, effusion or pneumothorax is detected. IMPRESSION: No acute cardiopulmonary process is detected. Dictated by: Dictated on workstation # [id number]
--- NOTE | 2020-05-24 19:08 | NUR ---
PT NOTIFIED OF POSITIVE COVID SWAB
== END 2020-05-24 02:30 | disposition home or self-care (01) ==
LOC: EDUNIT# 21:51 → ER 21:52
DX: U07.1 COVID-19 (principal); J12.89 Other viral pneumonia; J44.0 Chronic obstructive pulmonary disease with (acute) lower respiratory infection; M10.9 Gout, unspecified; I10 Essential (primary) hypertension
CPT/HCPCS: 71045; 71275; 80053; 80306; 81000; 82150; 82550; 82553; 83615; 83690; 83735; 83874; 83880; 84145; 84484; 84550; 85025; 85379; 85610; 85652; 85730; 86141; 93005; 93041; 99284; G0480; U0002; 36415; 80320; 87635

== ENCOUNTER 2022-02-10 04:29 | Emergency (ER) | payer MEDICARE, OTHER ==
[~2022-02-10] VITALS: Ht 177.8 cm; Wt 113.4 kg
[~2022-02-10 04:29] MED LIST changes: +AZIT500T PO; +CEFD300C3 PO; +COLC0.6T59 PO; +METH4TAB PO
[2022-02-10] MEDS ORDERED: ASPIRIN 81 MG CHEW (CHILDREN'S ASA) PO ONE (04:45)
[2022-02-10] MEDS ORDERED: NITROGLYCERIN 0.4 MG SL TABS BTL 25'S SL PRN (04:45)
[2022-02-10 04:49] LABS: BASOPHILS # (AUTO) 0.1 10^3/uL (0.0-0.1); BASOPHILS % (AUTO) 1 % (0-10); EOSINOPHILS # (AUTO) 0.4 10^3/uL (0.0-0.3); EOSINOPHILS % (AUTO) 4 % (0-10); HEMATOCRIT 44 % (40-54); HEMOGLOBIN 14.7 g/dL (13.3-17.7); LYMPHOCYTES # (AUTO) 2.2 10^3/uL (1.0-4.0); LYMPHOCYTES % (AUTO) 24 % (12-44); MEAN CORPUSCULAR HEMOGLOBIN 29 pg (25-34); MEAN CORPUSCULAR HGB CONC 34 g/dL (32-36); MEAN CORPUSCULAR VOLUME 88 fL (80-99); MEAN PLATELET VOLUME 11.8 fL (9.0-12.2); MONOCYTES % (AUTO) 10 % (0-12); NEUTROPHILS # (AUTO) 5.5 10^3/uL (1.8-7.8); NEUTROPHILS % (AUTO) 60 % (42-75); PLATELET COUNT 226 10^3/uL (130-400); WHITE BLOOD COUNT 9.2 10^3/uL (4.3-11.0)
--- NOTE | 2022-02-10 04:49 | ED Chest Pain ---
General Chief Complaint: Chest Pain Stated Complaint: CP,LEFT ARM NUMB,HEARTBURN WOKE PT UP,SOB,COPD Source: patient (TIM WALLACE DO) History of Present Illness Date Seen by Provider: Feb 10, 2022 Time Seen by Provider: 04:32 Initial Comments PT ARRIVES VIA POV FROM HOME STATES AROUND 0330, "BAD HEARTBURN" WOKE HIM UP AND HE HAD VOMITED A LITTLE BIT IN HIS MOUTH THEN HE STARTED HAVING PAIN IN LEFT UPPER CHEST, AND BEGAN HAVING SOME TINGLING DOWN RIGHT ARM RATES PAIN 3/10 AT WORST, AND IS NOW "1/2" OUT OF 10 PT WITH COPD, BUT HAS HAD INCREASED SHORTNESS OF BREATH THE LAST COUPLE OF DAYS, ESPECIALLY WITH ANY EXERTION PT HAS BEEN OUT OF HIS INHALERS "FOR AWHILE" NO SWELLING IN LEGS/FEET NO PAIN IN CALVES NO SWEATS NO NAUSEA/VOMITING NO FEVER OR RECENT ILLNESS NO HISTORY OF SIMILAR PT HAS HTN, COPD, AND HAD A STROKE IN 2012. PT CHEWS TOBACCO, HAS NEVER SMOKED CIGARETTES, BUT LIVES WITH 2 SMOKERS. PT HAS HAD LALI AND LALI COVID-19 VACCINE X 1 IN JANUARY OF 2021. NO BOOSTER NO FLU VACCINE. PCP: DR. LEODAN HILL (TIM WALLACE ) Allergies and Home Medications Allergies Coded Allergies: No Known Drug Allergies (Unverified , 08/28/13) Patient Home Medication List Home Medication List Reviewed: Yes (KYLEE DOWNING MD) Azithromycin (Zithromax) 500 Mg Tablet, 500 MG PO DAILY Prescribed by: TIM WALLACE on 05/24/20107 Cefdinir (Cefdinir) 300 Mg Capsule, 300 MG PO BID Prescribed by: TIM WALLACE on 05/24/20107 Clonidine Hcl (Catapres Tab) 0.2 Mg Tab, 1 EACH PO BID Prescribed by: TIM WALLACE on 08/28/131914 Colchicine (Colchicine) 0.6 Mg Tablet, 0.6 MG PO UD Prescribed by: TIM WALLACE on 05/24/20107 Doxycycline Hyclate (Doxycycline Hyclate) 100 Mg Tablet, 100 MG PO BID Prescribed by: GIORGIO AGUILAR on 10/13/19 185 Meclizine Hcl (Antivert) 25 Mg Tab, 1-2 TAB PO Q 4-6 HOURS PRN Prescribed by: TIM WALLACE on 08/28/131914 Methylprednisolone (Medrol) 4 Mg Tab.ds.pk, 4 MG PO UD Prescribed by: TIM WALLACE on 05/24/20107 Ondansetron Hcl (Zofran Oral Dissolve) 4 Mg Tab, 4 MG PO Q4H Prescribed by: TIM WALLACE on 08/28/131914 Prednisone (Prednisone) 20 Mg Tab, 40 MG PO DAILY Prescribed by: GIORGIO AGUILAR on 09/29/192115 Prednisone (Prednisone) 20 Mg Tab, 40 MG PO DAILY Prescribed by: GIORGIO AGUILAR on 10/13/191851 Scopolamine Hcl (Transderm-Scop) 1 Patch .72 H Patch.td72, 1 EA TD Q3D Prescribed by: TIM WALLACE on 08/28/131914 Review of Systems Review of Systems Constitutional: no symptoms reported EENTM: No Symptoms Reported Respiratory: See HPI, Shortness of Air, SOA With Exertion, SOA at Rest Cardiovascular: See HPI, Chest Pain; Denies Edema, Denies Irregular Heart Rate, Denies Lightheadedness, Denies Palpitations, Denies Syncope Gastrointestinal: See HPI; Denies Abdominal Pain, Denies Nausea, Denies Vomiting Genitourinary: No Symptoms Reported Musculoskeletal: no symptoms reported Skin: no symptoms reported Psychiatric/Neurological: See HPI Endocrine: No Symptoms Reported Hematologic/Lymphatic: No Symptoms Reported (TIM WALLACE DO) Past Kiaapjv-Himddn-Kafdnw Hx Patient Social History Tobacco Use?: No (+ SECOND HAND SMOKE) Smoking Status: Never a Smoker Smokeless Tobacco Frequency: Current Everyday User Substance use?: No Alcohol Use?: Yes Alcohol Frequency: Once in a while (TIM WALLACE DO) Seasonal Allergies Seasonal Allergies: No (TIM WALLACE DO) Past Medical History Surgeries: No Respiratory: Yes (TESTED + FOR COVID 05/23/2020--NO HOSPITALIZATION) COPD Cardiac: Yes High Cholesterol, Hypertension Neurological: Yes (STROKE IN 2012--NO RESIDUAL ) Stroke Reproductive Disorders: No Genitourinary: No Gastrointestinal: Yes Gastroesophageal Reflux Musculoskeletal: Yes Gout Endocrine: No (OBESITY) HEENT: No Cancer: No Psychosocial: No Integumentary: No Blood Disorders: No (TIM WALLACE DO) Family Medical History No Pertinent Family Hx (TIM WALLACE DO) Physical Exam Vital Signs Vital Signs - First Documented 02/10/22 04:34 Temp 36.2 Pulse 102 Resp 18 B/P (MAP) 175/107 (129) Pulse Ox 96 (KYLEE DOWNING MD) Vital Signs Capillary Refill : (TIM WALLACE DO) Height, Weight, BMI Height: '" Weight: 190lbs. oz. 86.748496pt; 36.00 BMI Method:Estimated General Appearance: WD/WN, Obese, Other (PT DYSPNEIC ON ARRIVAL, WITH AUDIBLE EXPIRATORY WHEEZING ON ARRIVAL--THIS IMPROVED WITH REST. REEKS OF CIGARETTES. ) Neck: Normal Inspection Respiratory: Other (DYSPNEIC ON ARRIVAL WITH AUDIBLE EXPIRATORY WHEEZING--IMPROVES WITH REST. 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-XII Norm as Tested Skin: Normal Color, Warm/Dry, Tattoos/Piercings (TATTOOS) (TIM WALLACE DO) Progress/Results/Core Measures Results/Orders Lab Results Laboratory Tests Test 02/10/22 04:38 02/10/22 04:41 02/10/22 07:30 Range/Units White Blood Count 9.2 4.3-11.0 10^3/uL Red Blood Count 5.00 4.30-5.52 10^6/uL Hemoglobin 14.7 13.3-17.7 g/dL Hematocrit 44 40-54 % Mean Corpuscular Volume 88 80-99 fL Mean Corpuscular Hemoglobin 29 25-34 pg Mean Corpuscular Hemoglobin Concent 34 32-36 g/dL Red Cell Distribution Width 13.7 10.0-14.5 % Platelet Count 226 130-400 10^3/uL Mean Platelet Volume 11.8 9.0-12.2 fL Immature Granulocyte % (Auto) 1 % Neutrophils (%) (Auto) 60 42-75 % Lymphocytes (%) (Auto) 24 12-44 % Monocytes (%) (Auto) 10 0-12 % Eosinophils (%) (Auto) 4 0-10 % Basophils (%) (Auto) 1 0-10 % Neutrophils # (Auto) 5.5 1.8-7.8 10^3/uL Lymphocytes # (Auto) 2.2 1.0-4.0 10^3/uL Monocytes # (Auto) 1.0 0.0-1.0 10^3/uL Eosinophils # (Auto) 0.4 H 0.0-0.3 10^3/uL Basophils # (Auto) 0.1 0.0-0.1 10^3/uL Immature Granulocyte # (Auto) 0.1 0.0-0.1 10^3/uL Erythrocyte Sedimentation Rate 7 0-30 MM/HR Prothrombin Time 12.9 12.2-14.7 SEC INR Comment 0.9 0.8-1.4 Activated Partial Thromboplast Time 33 24-35 SEC D-Dimer 0.43 0.00-0.49 UG/ML Sodium Level 141 135-145 MMOL/L Potassium Level 3.6 3.6-5.0 MMOL/L Chloride Level 103 98-107 MMOL/L Carbon Dioxide Level 24 21-32 MMOL/L Anion Gap 14 5-14 MMOL/L Blood Urea Nitrogen 18 7-18 MG/DL Creatinine 1.18 0.60-1.30 MG/DL Estimat Glomerular Filtration Rate 68 BUN/Creatinine Ratio 15 Glucose Level 129 H 70-105 MG/DL Calcium Level 9.3 8.5-10.1 MG/DL Corrected Calcium 9.1 8.5-10.1 MG/DL Magnesium Level 1.6 1.6-2.4 MG/DL Total Bilirubin 0.5 0.1-1.0 MG/DL Aspartate Amino Transf (AST/SGOT) 38 H 5-34 U/L Alanine Aminotransferase (ALT/SGPT) 63 H 0-55 U/L Alkaline Phosphatase 77 40-136 U/L Lactate Dehydrogenase 228 H 125-220 U/L Total Creatine Kinase 85 30-200 U/L Creatine Kinase MB 0.8 <6.6 NG/ML Myoglobin 44.3 10.0-92.0 NG/ML Troponin I < 0.028 < 0.028 <0.028 NG/ML C-Reactive Protein High Sensitivity 0.56 H 0.00-0.50 MG/DL B-Type Natriuretic Peptide < 10.0 <100.0 PG/ML Total Protein 7.4 6.4-8.2 GM/DL Albumin 4.2 3.2-4.5 GM/DL Amylase Level 33 25-125 U/L Lipase 34 8-78 U/L Procalcitonin 0.08 <0.10 NG/ML Influenza Type A (RT-PCR) Not Detected Not Detecte Influenza Type B (RT-PCR) Not Detected Not Detecte SARS-CoV-2 RNA (RT-PCR) Not Detected Not Detecte (KYLEE DOWNING MD) My Orders Orders - KYLEE DOWNING MD Troponin I Dima (02/10/22 07:30) Famotidine Injection (Pepcid Injection) (02/10/22 06:30) Albuterol Inhaler (Albuterol) (02/10/22 06:45) Ekg Tracing (02/10/22 07:30) (KYLEE DOWNING MD) Medications Given in ED Current Medications Medications Dose Ordered Sig/[place] Route Start Time Stop Time Status Last Admin Dose Admin Aspirin 324 mg ONCE ONCE PO 02/10/22 04:45 02/10/22 04:47 DC 02/10/22 04:43 324 MG Famotidine 20 mg ONCE ONCE IVP 02/10/22 06:30 02/10/22 06:31 DC 02/10/22 06:33 20 MG (KYLEE DOWNING MD) Vital Signs/I&O 02/10/22 04:34 Temp 36.2 Pulse 102 Resp 18 B/P (MAP) 175/107 (129) Pulse Ox 96 (KYLEE DOWNING MD) Progress Progress Note : Progress Note GIVEN ASPIRIN NTG HELD DUE TO NO PAIN SHORTLY AFTER ARRIVAL BP QUICKLY DOWN TO 130'S/70'S SHORTLY AFTER ARRIVAL DYSPNEA IMPROVED SHORTLY AFTER ARRIVAL WITH REST 0600--CARE TURNED OVER TO DR. DOWNING, WILL DO 3 HOUR REPEAT EKG AND TRO PONIN. PT IS SYMPTOM-FREE AT THIS TIME (TIM WALLACE DO) Progress Note #1: Time: 06:46 Progress Note Care of this patient was assumed from Dr. Wallace at shift change. Patient claims no pain whatsoever at this time. Initial work-up was unremarkable. Some of his symptoms are classic for GERD. He is receiving a dose of Pepcid to treat those symptoms. The discomfort that radiates down his arm with associated numbness could be more indicative of a cardiac etiology. We will obtain a repeat troponin at 0730. He is wheezing on repeat examination. He will receive an albuterol inhaler. Disposition will be pending the status of his discomfort and the result of repeat troponin. Progress Note #2: Time: 09:06 Progress Note Patient is pain-free at this time. Repeat troponin was negative. BNP was added to the work-up and was also normal. Patient use the inhaler provided and stated it improved his breathing. He also reports that this time he had a negative stress test and echocardiogram performed by Dr. Sanchez in [place] about 3 month s ago. He does take omeprazole for his acid reflux. I am going to have him increase that to twice daily for the next couple of weeks. I will also give him dietary recommendations for his acid reflux. See discharge instructions for further discussion. (KYLEE DOWNING MD) Initial ECG Impression Date: Feb 10, 2022 Initial ECG Impression Time: 04:34 Initial ECG Rate: 92 Initial ECG Rhythm: Normal Sinus (TIM WALLACE DO) EKG : EKG Time: 07:30 Rate: 83 Rhythm: Normal Sinus Intervals: Normal ECG Impression: Normal Comment Normal sinus rhythm with no ST elevation or depression. No abnormal intervals or axis deviation. (KYLEE DOWNING MD) Diagnostic Imaging Comments CXR--NO ACUTE PROCESS, PENDING RADIOLOGIST REVIEW Reviewed: Reviewed by Me (TIM WALLACE DO) Diagonstic Imaging: Xray Plain Films/CT/US/NM/MRI: chest Comments NAME: [facility] REC#: [id number] PT STATUS: REG ER : 1955 PHYSICIAN: TIM WALLACE DO ADMIT DATE: 02/10/22/ER Signed Date of Exam:02/10/22 CHEST 1 VIEW, AP/PA ONLY EXAMINATION: Chest 1 view HISTORY: Chest pain. COMPARISON: 05/23/2020. FINDINGS: The lung volumes are normal. No focal consolidation is seen. No large pleural effusion or pneumothorax is seen. The cardiomediastinal silhouette is prominent. No acute osseous abnormality is seen. IMPRESSION: 1. Cardiomegaly. No overt pulmonary edema. Dictated by: Dictated on workstation # [id number] Dict: 02/10/22 0559 Trans: 02/10/22604 LUANN [id number] Interpreted by: DENICE GARLAND DO Electronically signed by: DENICE GARLAND DO 02/10/22604 (KYLEE DOWNING MD) Departure Impression Primary Impression: Chest pain Qualified Codes: R07.9 - Chest pain, unspecified Additional Impressions: GERD (gastroesophageal reflux disease) Qualified Codes: K21.9 - Gastro-esophageal reflux disease without esophagitis COPD exacerbation Disposition: HOME, SELF-CARE Condition: Improved Departure-Patient Inst. Decision time for Depature: 09:08 (KYLEE DOWNING MD) Referrals: LEODAN HILL MD (PCP/Family) Primary Care Physician Patient Instructions: Acid Reflux and Gastroesophageal Reflux Disease in Adults, Chest Pain Add. Discharge Instructions: There was no evidence of heart problems during your work-up in the emergency room. If your cardiac work-up in [place] was normal, it is unlikely your chest pain is caused by a cardiac problem. Your pain may be related to acid reflux. Please increase your omeprazole to twice daily dosing for the next couple of weeks. In addition, please avoid the following: Eating large meals, eating close to bedtime, caffeine, carbonation, chocolate, citrus fruits and juices, tomato products, alcohol, tobacco products, mints, fatty and greasy foods, NSAID medications such as ibuprofen or naproxen, spicy foods, and anything else you kn ow irritates your stomach. Please notify your horse trainer that you were seen in the ER for chest pain. Use your inhaler up to 4 puffs in a 4-hour period of time as needed for shortness of breath and wheezing. Avoid triggers that worsen your COPD such as cigarette smoke. Call with questions or concerns. Return to the ER if you have worsening symptoms or recurrent episodes of chest pain. Follow-up with your primary care provider within the next couple of weeks. Please call today for an appointment time. All discharge instructions reviewed with patient and/or family. Voiced understanding. Copy Copies To 1: LEODAN HILL MD, LISA K DO Feb 10, 2022 04:49 KYLEE DOWNING MD Feb 10, 2022 06:50
[2022-02-10 05:11] LABS: ALBUMIN 4.2 GM/DL (3.2-4.5); INR 0.9 (0.8-1.4); POTASSIUM 3.6 MMOL/L (3.6-5.0); PROTHROMBIN TIME PATIENT 12.9 SEC (12.2-14.7)
[2022-02-10 05:13] LABS: CALCIUM 9.3 MG/DL (8.5-10.1)
[2022-02-10 05:14] LABS: TOTAL PROTEIN 7.4 GM/DL (6.4-8.2)
[2022-02-10 05:16] LABS: BILIRUBIN,TOTAL 0.5 MG/DL (0.1-1.0)
[2022-02-10 05:17] LABS: CREATININE SERUM 1.18 MG/DL (0.60-1.30)
[2022-02-10 05:20] LABS: MAGNESIUM 1.6 MG/DL (1.6-2.4)
[2022-02-10 05:29] LABS: CREATINE KINASE MB 0.8 NG/ML (<6.6)
--- NOTE | 2022-02-10 06:02 | Diagnostic Imaging Report ---
EXAMINATION: Chest 1 view HISTORY: Chest pain. COMPARISON: 05/23/2020. FINDINGS: The lung volumes are normal. No focal consolidation is seen. No large pleural effusion or pneumothorax is seen. The cardiomediastinal silhouette is prominent. No acute osseous abnormality is seen. IMPRESSION: 1. Cardiomegaly. No overt pulmonary edema. Dictated by: Dictated on workstation # [id number]
[2022-02-10] MEDS ORDERED: FAMOTIDINE 20MG/2ML IV (PEPCID) IVP ONE (06:30)
[2022-02-10] MEDS ORDERED: RT-ALBUTEROL HFA 8.5 GM INHALER IH STA (06:45)
[2022-02-10 09:21] VITALS: BP 157/92
== END 2022-02-10 09:21 | disposition home or self-care (01) ==
LOC: EDUNIT# 04:29 → ER 04:33
DX: K21.9 Gastro-esophageal reflux disease without esophagitis (principal); J44.1 Chronic obstructive pulmonary disease with (acute) exacerbation; E66.9 Obesity, unspecified; F17.290 Nicotine dependence, other tobacco product, uncomplicated; Z68.36 Body mass index [BMI] 36.0-36.9, adult; Z20.822 Contact with and (suspected) exposure to COVID-19
CPT/HCPCS: 36415; 71045; 80053; 82150; 82550; 82553; 83615; 83690; 83735; 83874; 83880; 84145; 84484; 85025; 85379; 85610; 85652; 85730; 86141; 87636; 93005; 93041

== ENCOUNTER 2022-12-17 11:44 | Emergency (ER) | payer MEDICARE, OTHER ==
--- NOTE | 2022-12-17 11:53 | ED Chest Pain ---
General Chief Complaint: Chest Pain Stated Complaint: CHEST PAINS Source: patient Exam Limitations: no limitations (AUGUST OLSEN APRN) History of Present Illness Date Seen by Provider: Dec 17, 2022 Time Seen by Provider: 11:45 Initial Comments Patient is a 67-year-old male who presents to the emergency department for eval uation of left-sided chest pain that began approximately 1 hour prior to arrival he was walking at a boat [employer]. Patient states the pain is pinpoint. He states the pain spontaneously lessened shortly after it began. States he also had a brief period where he had some left shoulder pain that is since resolved. He states now he has some very mild pain in his left lower chest. Denies any alleviating or exacerbating factors. Denies any shortness of breath outside of his baseline given his history of COPD. He also denies any diaphoresis or dependent edema. Denies any history of significant cardiopulmonary disease. States he has never seen a communications programmer in the past. (AUGUST OLSEN APRN) Allergies and Home Medications Allergies Coded Allergies: No Known Drug Allergies (Unverified , 08/28/13) Patient Home Medication List Home Medication List Reviewed: Yes (AUGUST OLSEN APRN) Azithromycin (Zithromax) 500 Mg Tablet, 500 MG PO DAILY Prescribed by: TIM DE LA CRUZ on 05/24/20107 Cefdinir (Cefdinir) 300 Mg Capsule, 300 MG PO BID Prescribed by: TIM DE LA CRUZ on 05/24/20107 Clonidine Hcl (Catapres Tab) 0.2 Mg Tab, 1 EACH PO BID Prescribed by: TIM DE LA CRUZ on 08/28/131914 Colchicine (Colchicine) 0.6 Mg Tablet, 0.6 MG PO UD Prescribed by: TIM DE LA CRUZ on 05/24/20107 Doxycycline Hyclate (Doxycycline Hyclate) 100 Mg Tablet, 100 MG PO BID Prescribed by: GIORGIO AGUILAR on 10/13/191851 Meclizine Hcl (Antivert) 25 Mg Tab, 1-2 TAB PO Q 4-6 HOURS PRN Prescribed by: TIM DE LA CRUZ on 08/28/131914 Methylprednisolone (Medrol) 4 Mg Tab.ds.pk, 4 MG PO UD Prescribed by: TIM DE LA CRUZ on 05/24/20107 Ondansetron Hcl (Zofran Oral Dissolve) 4 Mg Tab, 4 MG PO Q4H Prescribed by: TIM DE LA CRUZ on 08/28/131914 Prednisone (Prednisone) 20 Mg Tab, 40 MG PO DAILY Prescribed by: GIORGIO AGUILAR on 09/29/192115 Prednisone (Prednisone) 20 Mg Tab, 40 MG PO DAILY Prescribed by: GIORGIO AGUILAR on 10/13/191851 Scopolamine Hcl (Transderm-Scop) 1 Patch .72 H Patch.td72, 1 EA TD Q3D Prescribed by: TIM DE LA CRUZ on 08/28/131914 Review of Systems Review of Systems Constitutional: no symptoms reported EENTM: No Symptoms Reported Respiratory: No Symptoms Reported Cardiovascular: See HPI, Chest Pain Gastrointestinal: No Symptoms Reported Genitourinary: No Symptoms Reported Musculoskeletal: no symptoms reported Skin: no symptoms reported Psychiatric/Neurological: No Symptoms Reported Endocrine: No Symptoms Reported Hematologic/Lymphatic: No Symptoms Reported (AUGUST OLSEN APRN) Past Xrmipot-Rocshn-Fwewky Hx Seasonal Allergies Seasonal Allergies: No (AUGUST OLSEN APRN) Past Medical History Surgeries: No Respiratory: Yes (TESTED + FOR COVID 05/23/2020--NO HOSPITALIZATION) COPD Cardiac: Yes High Cholesterol, Hypertension Neurological: Yes (STROKE IN 2012--NO RESIDUAL ) Stroke Reproductive Disorders: No Genitourinary: No Gastrointestinal: Yes Gastroesophageal Reflux Musculoskeletal: Yes Gout Endocrine: No (OBESITY) HEENT: No Cancer: No Psychosocial: No Integumentary: No Blood Disorders: No (AUGUST OLSEN APRN) Family Medical History No Pertinent Family Hx (AUGUST OLSEN APRN) Physical Exam Vital Signs Vital Signs - First Documented 12/17/22 11:46 Temp 36.4 Pulse 76 Resp 21 B/P (MAP) 135/96 (109) (KYLEE DOWNING MD) Vital Signs Capillary Refill : (AUGUST OLSEN APRN) Height, Weight, BMI Height: '" Weight: 190lbs. oz. 86.737755dz; 35.00 BMI Method:Estimated General Appearance: No Apparent Distress, WD/WN HEENT: PERRL/EOMI, TMs Normal, Normal ENT Inspection, Pharynx Normal Neck: Full Range of Motion, Normal Inspection, Non Tender, Supple Respiratory: Chest Non Tender, Lungs Clear, Normal Breath Sounds, No Accessory Muscle Use, No Respiratory Distress Cardiovascular: Regular Rate, Rhythm, Normal Peripheral Pulses Gastrointestinal: Non Tender, Soft Extremity: Non Tender, No Calf Tenderness Neurologic/Psychiatric: Alert, Oriented x3, No Motor/Sensory Deficits, Normal Mood/Affect Skin: Normal Color, Warm/Dry (AUGUST OLSEN APRN) Progress/Results/Core Measures Results/Orders Lab Results Laboratory Tests Test 12/17/22 12:03 12/17/22 13:55 Range/Units White Blood Count 8.4 4.3-11.0 10^3/uL Red Blood Count 5.07 4.30-5.52 10^6/uL Hemoglobin 14.5 13.3-17.7 g/dL Hematocrit 43 40-54 % Mean Corpuscular Volume 84 80-99 fL Mean Corpuscular Hemoglobin 29 25-34 pg Mean Corpuscular Hemoglobin Concent 34 32-36 g/dL Red Cell Distribution Width 14.4 10.0-14.5 % Platelet Count 246 130-400 10^3/uL Mean Platelet Volume 10.7 9.0-12.2 fL Immature Granulocyte % (Auto) 1 % Neutrophils (%) (Auto) 61 42-75 % Lymphocytes (%) (Auto) 27 12-44 % Monocytes (%) (Auto) 8 0-12 % Eosinophils (%) (Auto) 2 0-10 % Basophils (%) (Auto) 1 0-10 % Neutrophils # (Auto) 5.1 1.8-7.8 10^3/uL Lymphocytes # (Auto) 2.3 1.0-4.0 10^3/uL Monocytes # (Auto) 0.7 0.0-1.0 10^3/uL Eosinophils # (Auto) 0.2 0.0-0.3 10^3/uL Basophils # (Auto) 0.1 0.0-0.1 10^3/uL Immature Granulocyte # (Auto) 0.0 0.0-0.1 10^3/uL Prothrombin Time 12.2 12.2-14.7 SEC INR Comment 0.9 0.8-1.4 Activated Partial Thromboplast Time 25 24-35 SEC Sodium Level 138 135-145 MMOL/L Potassium Level 4.3 3.6-5.0 MMOL/L Chloride Level 103 98-107 MMOL/L Carbon Dioxide Level 21 21-32 MMOL/L Anion Gap 14 5-14 MMOL/L Blood Urea Nitrogen 19 H 7-18 MG/DL Creatinine 1.12 0.60-1.30 MG/DL Estimat Glomerular Filtration Rate 72 BUN/Creatinine Ratio 17 Glucose Level 96 70-105 MG/DL Calcium Level 9.4 8.5-10.1 MG/DL Corrected Calcium 9.2 8.5-10.1 MG/DL Magnesium Level 1.8 1.6-2.4 MG/DL Total Bilirubin 0.5 0.1-1.0 MG/DL Aspartate Amino Transf (AST/SGOT) 25 5-34 U/L Alanine Aminotransferase (ALT/SGPT) 27 0-55 U/L Alkaline Phosphatase 53 40-136 U/L Troponin I < 0.028 < 0.028 <0.028 NG/ML Total Protein 7.6 6.4-8.2 GM/DL Albumin 4.2 3.2-4.5 GM/DL (KYLEE DOWNING MD) Vital Signs/I&O 12/17/22 12/17/22 11:46 14:36 Temp 36.4 36.4 Pulse 76 75 Resp 21 16 B/P (MAP) 135/96 (109) 139/86 (KYLEE DOWNING MD) Progress Progress Note : Progress Note Patient is nontoxic and well-hydrated on exam. No adventitious lung sounds or increased work of breathing noted. Vital signs are reassuring. Pain is not reproducible with palpation. Patient ambulatory to the room without issue. S tates pain is very mild upon arrival to the room. Replaced for chest pain work-up. Orders for CBC, CMP, coagulation studies, c hest x-ray, EKG, and troponin placed. Laboratory evaluation is very reassuring. Specifically there are no dyscrasias noted on CBC, metabolic derangements noted on CMP, coagulation studies are reassuring, and troponin is normal. EKG without acute ischemic change or arrhythmia. Chest x-ray is acutely negative. A repeat troponin was obtained 3 hours after the onset of pain. This was also negative. Low suspicion for ACS given the pinpoint nature of the pain as well as no exacerbation with exertion. Reassuring work-up further makes this less likely. Discussed importance of supportive care and anticipatory guidance. Stressed importance of close follow- up with PCP. Return precautions for urgent symptomology discussed. Patient verbalized understanding. (AUGUST OLSEN APRN) EKG : EKG Time: 11:53 Rate: 72 Rhythm: Normal Sinus Intervals: Normal ECG Impression: Normal (AUGUST OLSEN APRN) Departure Impression Primary Impression: Atypical chest pain Disposition: 01 HOME, SELF-CARE Condition: Stable Departure-Patient Inst. Decision time for Depature: 14:25 (AUGUST OLSEN APRN) Referrals: LEODAN HILL MD (PCP/Family) Primary Care Physician Patient Instructions: Chest Pain, Adult ED ATTENDING PHYSICIAN NOTE: I was physically present as attending physician in the emergency department during the care of this patient, but I was not directly involved in the decision making or delivery of care for this patient. (KYLEE DOWNING MD) AUGUST OLSEN APRN Dec 17, 2022 11:53 KYLEE DOWNING MD Dec 17, 2022 19:51
--- NOTE | 2022-12-17 12:09 | Diagnostic Imaging Report ---
INDICATION: Chest pain, tightness. COMPARISON: 02/10/2022. FINDINGS: Lungs are clear. No failure, effusion, or pneumothorax. IMPRESSION: No acute appearing abnormality. Dictated by: Dictated on workstation # [id number]
[2022-12-17 12:13] LABS: BASOPHILS # (AUTO) 0.1 10^3/uL (0.0-0.1); BASOPHILS % (AUTO) 1 % (0-10); EOSINOPHILS # (AUTO) 0.2 10^3/uL (0.0-0.3); EOSINOPHILS % (AUTO) 2 % (0-10); HEMATOCRIT 43 % (40-54); HEMOGLOBIN 14.5 g/dL (13.3-17.7); LYMPHOCYTES # (AUTO) 2.3 10^3/uL (1.0-4.0); LYMPHOCYTES % (AUTO) 27 % (12-44); MEAN CORPUSCULAR HEMOGLOBIN 29 pg (25-34); MEAN CORPUSCULAR HGB CONC 34 g/dL (32-36); MEAN CORPUSCULAR VOLUME 84 fL (80-99); MEAN PLATELET VOLUME 10.7 fL (9.0-12.2); MONOCYTES # (AUTO) 0.7 10^3/uL (0.0-1.0); MONOCYTES % (AUTO) 8 % (0-12); NEUTROPHILS # (AUTO) 5.1 10^3/uL (1.8-7.8); NEUTROPHILS % (AUTO) 61 % (42-75); PLATELET COUNT 246 10^3/uL (130-400); WHITE BLOOD COUNT 8.4 10^3/uL (4.3-11.0)
[2022-12-17 12:23] LABS: ALBUMIN 4.2 GM/DL (3.2-4.5); POTASSIUM 4.3 MMOL/L (3.6-5.0)
[2022-12-17 12:24] LABS: CALCIUM 9.4 MG/DL (8.5-10.1); INR 0.9 (0.8-1.4); PROTHROMBIN TIME PATIENT 12.2 SEC (12.2-14.7)
[2022-12-17 12:25] LABS: TOTAL PROTEIN 7.6 GM/DL (6.4-8.2)
[2022-12-17 12:27] LABS: BILIRUBIN,TOTAL 0.5 MG/DL (0.1-1.0)
[2022-12-17 12:29] LABS: CREATININE SERUM 1.12 MG/DL (0.60-1.30)
[2022-12-17 12:32] LABS: MAGNESIUM 1.8 MG/DL (1.6-2.4)
[2022-12-17 14:36] VITALS: BP 139/86
== END 2022-12-17 14:38 | disposition home or self-care (01) ==
LOC: EDUNIT# 11:44 → ER 11:47
DX: R07.89 Other chest pain (principal); E66.9 Obesity, unspecified; Z68.35 Body mass index [BMI] 35.0-35.9, adult
CPT/HCPCS: 36415; 71045; 80053; 83735; 84484; 85025; 85610; 85730; 93005; 93041

== ENCOUNTER 2023-06-01 22:33 | Emergency (ER) | payer MEDICARE, OTHER ==
[~2023-06-01] VITALS: Ht 175 cm; Wt 111.6 kg
[2023-06-01] MEDS ORDERED: OMEP20CA18 (22:42)
[2023-06-01] MEDS ORDERED: LISI20TA26 (22:42)
[2023-06-01] MEDS ORDERED: CARV25TA (22:42)
[2023-06-01] MEDS ORDERED: AMLO-251 (22:42)
[2023-06-01] MEDS ORDERED: ASPI-808 PO (22:43)
--- NOTE | 2023-06-01 23:06 | ED Lower Extremity ---
General Chief Complaint: Lower Extremity Stated Complaint: KNEE SWOLLEN Nursing Triage Note: C/O RIGHT KNEE SWELLING/PAIN TODAY. DENIES INJURY Source: patient History of Present Illness Date Seen by Provider: Jun 01, 2023 Time Seen by Provider: 22:49 Initial Comments PT ARRIVES VIA POV FROM HOME C/O RIGHT KNEE PAIN AND SWELLING SINCE 1699 TONIGHT NO INJURY OR UNUSUAL ACTIVITY--STAYED INSIDE ALL DAY AND WATCHED TV PT HAS ARTHRITIS IN BOTH KNEES, BUT USUALLY HAS PROBLEMS WITH LEFT KNEE, DOES NOT NORMALLY HAVE ALOT OF PROBLEMS WITH HIS RIGHT KNEE, AND HAS NEVER HAD IT SWELL UP LIKE THIS BEFORE HAS NOT TAKEN ANYTHING FOR PAIN NO FEVER PT IS ABLE TO BEAR WEIGHT, IT JUST HURTS TO WALK OR BEND THE KNEE. HE HAS NEVER SEEN AN ORTHOPEDIC SURGEON PT HAS COPD, HTN, HX OF CVA 2012 WITH NO RESIDUAL PT IS ON FULL ASPIRIN AND BLOOD PRESSURE MEDICATIONS. NO BLOOD THINNERS PT HAS HISTORY OF GOUT, BUT STATES THAT IT HAS ALWAYS FLARED UP IN HIS ANKLES OR BIG TOES. NEVER HAD IT IN ANY OTHER JOINT. HE STATES THIS DOES NOT HURT VERY BAD, AND DOES NOT FEEL LIKE GOUT. PCP: DR. LEODAN HILL Allergies and Home Medications Allergies Coded Allergies: No Known Drug Allergies (Unverified , 08/28/13) Patient Home Medication List Home Medication List Reviewed: Yes Amlodipine Besylate (Amlodipine Besylate) 10 Mg Tablet, (Reported) Entered as Reported by: SOPHY HA on 06/01/232241 Last Action: New Order Aspirin (Aspirin) 325 Mg Tablet, 325 MG PO, (Reported) Entered as Reported by: SOPHY HA on 06/01/232242 Last Action: New Order Carvedilol (Carvedilol) 25 Mg Tablet, (Reported) Entered as Reported by: SOPHY HA on 06/01/232241 Last Action: New Order Lisinopril (Lisinopril) 20 Mg Tablet, (Reported) Entered as Reported by: SOPHY HA on 06/01/232241 Last Action: New Order Methylprednisolone (Medrol) 4 Mg Tab.ds.pk, 4 MG PO UD Prescribed by: TIM DE LA CRUZ on 06/01/232339 Omeprazole (Omeprazole) 20 Mg Capsule., (Reported) Entered as Reported by: SOPHY HA on 06/01/232241 Last Action: New Order Discontinued Medications Azithromycin (Zithromax) 500 Mg Tablet, 500 MG PO DAILY Discontinued Reason: No Longer Taking Prescribed by: TIM DE LA CRUZ on 05/24/20107 Last Action: Discontinued Cefdinir (Cefdinir) 300 Mg Capsule, 300 MG PO BID Discontinued Reason: No Longer Taking Prescribed by: TIM DE LA CRUZ on 05/24/20107 Last Action: Discontinued Clonidine Hcl (Catapres Tab) 0.2 Mg Tab, 1 EACH PO BID Discontinued Reason: No Longer Taking Prescribed by: TIM DE LA CRUZ on 08/28/131914 Last Action: Discontinued Colchicine (Colchicine) 0.6 Mg Tablet, 0.6 MG PO UD Discontinued Reason: No Longer Taking Prescribed by: TIM DE LA CRUZ on 05/24/20107 Last Action: Discontinued Doxycycline Hyclate (Doxycycline Hyclate) 100 Mg Tablet, 100 MG PO BID Discontinued Reason: No Longer Taking Prescribed by: GIORGIO AGUILAR on 10/13/191851 Last Action: Discontinued Meclizine Hcl (Antivert) 25 Mg Tab, 1-2 TAB PO Q 4-6 HOURS PRN Discontinued Reason: No Longer Taking Prescribed by: TIM DE LA CRUZ on 08/28/131914 Last Action: Discontinued Methylprednisolone (Medrol) 4 Mg Tab.ds.pk, 4 MG PO UD Discontinued Reason: No Longer Taking Prescribed by: TIM DE LA CRUZ on 05/24/20107 Last Action: Discontinued Ondansetron Hcl (Zofran Oral Dissolve) 4 Mg Tab, 4 MG PO Q4H Discontinued Reason: No Longer Taking Prescribed by: TIM DE LA CRUZ on 08/28/131914 Last Action: Discontinued Prednisone (Prednisone) 20 Mg Tab, 40 MG PO DAILY Discontinued Reason: No Longer Taking Prescribed by: GIORGIO AUGILAR on 09/29/192115 Last Action: Discontinued Prednisone (Prednisone) 20 Mg Tab, 40 MG PO DAILY Discontinued Reason: No Longer Taking Prescribed by: GIORGIO AGUILAR on 10/13/191851 Last Action: Discontinued Scopolamine Hcl (Transderm-Scop) 1 Patch .72 H Patch.td72, 1 EA TD Q3D Discontinued Reason: No Longer Taking Prescribed by: TIM DE LA CRUZ on 08/28/131914 Last Action: Discontinued Review of Systems Constitutional: no symptoms reported Musculoskeletal: see HPI Skin: no symptoms reported Psychiatric/Neurological: No Symptoms Reported Past Mnrooui-Mxgngw-Bgsyjd Hx Patient Social History Tobacco Use?: Yes Tobacco type used: Cigarettes Smoking Status: Current Everyday Smoker Smokeless Tobacco Frequency: Current Everyday User Substance use?: No Alcohol Use?: No Pt feels they are or have been: No Immunizations Up To Date First/Initial COVID19 Vaccinat: 2020 Seasonal Allergies Seasonal Allergies: No Past Medical History Surgery/Hospitalization HX: HTN, STROKE, GERD, ARTHRITIS, AFIB Surgeries: No Respiratory: Yes (TESTED + FOR COVID 05/23/2020--NO HOSPITALIZATION) COPD Cardiac: Yes High Cholesterol, Hypertension Neurological: Yes (STROKE IN 2013-HAD DOUBLE VISION-NO RESIDUAL ) Stroke Reproductive Disorders: No Genitourinary: No Gastrointestinal: Yes Gastroesophageal Reflux Musculoskeletal: Yes Arthritis, Gout Endocrine: No (OBESITY) HEENT: No (EDENTULOUS) Cancer: No Psychosocial: No Integumentary: No Blood Disorders: No Family Medical History No Pertinent Family Hx Physical Exam Vital Signs Vital Signs - First Documented 06/01/23 22:37 Temp 36.6 Pulse 106 Resp 16 B/P (MAP) 126/85 (99) Pulse Ox 94 O2 Delivery Room Air Capillary Refill : Less Than 3 Seconds Height, Weight, BMI Height: '" Weight: 190lbs. oz. 86.538467nh; 36.00 BMI Method:Estimated General Appearance: WD/WN, no apparent distress, other (REEKS OF CIGARETTES) Legs: right leg normal inspection Knees: right knee normal inspection, right knee other (RIGHT KNEE WITH MODERATE SWELLING/EFFUSION, DIFFUSE ANTERIOR KNEE TENDERNESS, LIMITED ROM DUE TO PAIN, UNABLE TO DETERMINE LIGAMENT LAXITY DUE TO SWELLING AND PT DISCOMFORT . THERE IS NO WARMTH OR ERYTHEMA. ) Ankles: right ankle no evidence of injury, right ankle bone tenderness, right ankle joint effusion, right ankle limited range of motion, right ankle pain, right ankle soft tissue tenderness, right ankle swelling, right ankle other (NO WARMTH OR ERYTHEMA. NO EVIDENCE OF TRAUMA. ) Feet: right foot normal inspection Neurologic/Tendon: normal sensation, normal motor functions, normal tendon functions, other (VASCULAR INTACT. ) Neurologic/Psychiatric: no motor/sensory deficits, alert, normal mood/affect, oriented x 3 Skin: normal color, warm/dry Procedures/Interventions Splinting and Joint Reduction : Bishop wrap: Yes Immobilizers: 24 inch Knee Progress/Results/Core Measures Results/Orders My Orders Orders - DOROTHY,TIM K DO Knee, Right, 3 Views (06/01/23 22:57) Bishop Bandage (06/01/23 23:36) Knee Immobilizer (06/01/23 23:36) Prednisone Tablet (Deltasone Tablet) (06/01/23 23:45) Medications Given in ED Current Medications Medications Dose Ordered Sig/[place] Route Start Time Stop Time Status Last Admin Dose Admin Prednisone 40 mg ONCE ONCE PO 06/01/23 23:45 06/01/23 23:46 DC 06/01/23 23:45 40 MG Vital Signs/I&O 06/01/23 06/01/23 06/01/23 22:37 22:48 23:46 Temp 36.6 Pulse 106 101 91 Resp 16 20 20 B/P (MAP) 126/85 (99) 143/85 (104) 121/77 Pulse Ox 94 98 96 O2 Delivery Room Air Room Air Room Air Blood Pressure Mean: 104 Progress Progress Note : Progress Note PT STATES "IT DOESN'T REALLY HURT TOO BAD" AND PT REQUESTS RX FOR STEROIDS, HE STATES THAT IS WHAT HAS HELPED THE MOST WHEN HE HAS HAD PROBLEMS WITH HIS LEFT KNEE DISCUSSED ANTICIPATED COURSE, SYMPTOMATIC TREATMENT, MEDICATION, NEED FOR FOLLOW UP --WILL REFER TO ORTHOPEDIC SURGEON, AND RETURN PRECAUTIONS. Diagnostic Imaging Comments XRAYS RIGHT KNEE--PENDING RADIOLOGIST REVIEW -ARTHRITIC CHANGES, WITH SOFT TISSUE SWELLING / JOINT EFFUSION. Reviewed: Reviewed by Me Departure Impression Primary Impression: Pain and swelling of right knee Disposition: HOME, SELF-CARE Condition: Stable Departure-Patient Inst. Decision time for Depature: 23:35 Referrals: LEODAN HILL MD (PCP/Family) Primary Care Physician ALISSON VAN MD Patient Instructions: How to Use an Elastic Bandage, Knee Immobilizer (DC), Knee Pain ED, Using Cold for Pain Add. Discharge Instructions: BISHOP WRAP AND KNEE IMMOBILIZER FOR COMFORT FOLLOW UP WITH DR. VAN, ORTHOPEDIC SURGEON FOR FURTHER CARE--CALL IN THE MORNING TO SCHEDULE AN APPOINTMENT All discharge instructions reviewed with patient and/or family. Voiced understanding. Scripts Methylprednisolone (Medrol) 4 Mg Tab.ds.pk 4 MG PO UD for 6 Days, #21 PKG PER DOSE PACK INSTRUCTIONS Prov: TIM DE LA CRUZ DO 06/01/23 TIM DE LA CRUZ DO Jun 01, 2023 23:06
[2023-06-01] MEDS ORDERED: METH4TAB PO (23:40)
[2023-06-01] MEDS ORDERED: predniSONE 20 MG TAB PO ONE (23:45)
[2023-06-01 23:46] VITALS: BP 121/77
--- NOTE | 2023-06-02 07:46 | Diagnostic Imaging Report ---
INDICATION: Knee pain TECHNIQUE: 3 views of the right knee CORRELATION STUDY: 03/11/2019 FINDINGS: There is advanced degenerative changes with mild joint space narrowing medial and to a lesser degree lateral compartment. There articular surfaces are smooth. There is a more prominently advanced degenerative changes of the patellofemoral compartment including joint space narrowing and osteophyte formation. Soft tissue swelling over the anterior and inferior aspect of the knee most pronounced in relation to the patella. IMPRESSION: 1. Negative for acute bony abnormality of the knee. Moderate to markedly advanced degenerative changes of the patellofemoral compartment with mild degenerative changes of the remaining knee. Rather prominent anterior soft tissue edema/swelling. Dictated by: Dictated on workstation # [id number]
== END 2023-06-01 23:46 | disposition home or self-care (01) ==
LOC: EDUNIT# 22:33 → ER 22:34
DX: M25.561 Pain in right knee (principal); M25.461 Effusion, right knee; I10 Essential (primary) hypertension; F17.210 Nicotine dependence, cigarettes, uncomplicated; E66.9 Obesity, unspecified; Z86.73 Personal history of transient ischemic attack (TIA), and cerebral infarction without residual deficits; Z79.82 Long term (current) use of aspirin; Z79.899 Other long term (current) drug therapy; Z28.311 Partially vaccinated for COVID-19; Z86.16 Personal history of COVID-19; Z68.36 Body mass index [BMI] 36.0-36.9, adult
CPT/HCPCS: 73562